=== PATIENT | female | born 1975 | race Caucasian/White ===

== ENCOUNTER → 2016-09-26 | Outpatient (CLI) | payer OTHER ==
--- NOTE | 2016-09-26 12:56 | US ---
EXAMINATION TYPE: US axilla extremity RT DATE OF EXAM: 09/26/2016 COMPARISON: NONE CLINICAL HISTORY: L03.121 Acute lymphangitis of right axilla. pt states rt axilla fullness, not reall y tender, family history of Hodgkins and breast cancer Scanned over the pt's area of concern and scanned the contralateral side for comparison--no abnormali ty seen by ultrasound. No worrisome solid or cystic mass or abnormal fluid collection is seen on images saved with compariso n views of left axilla also performed. IMPRESSION: As above
== END | disposition home or self-care (01) ==
LOC: RADUSWWP 11:50
PROVIDERS: ATTEND Family Medicine
DX: L03.121 Acute lymphangitis of right axilla (principal)

== ENCOUNTER → 2017-09-12 | Outpatient (CLI) | payer OTHER ==
--- NOTE | 2017-09-16 09:57 | MM ---
Reason for exam: screening (asymptomatic). Last mammogram was performed 6 years and 7 months ago. History: Patient is postmenopausal. Family history of premenopausal breast cancer in mother at age 47. Took hormonal contraceptives for 9 years beginning at age 14. Took estrogen for 1 year beginning at age 23. Took progesterone for 1 year beginning at age 23. Physical Findings: A clinical breast exam by your physician is recommended on an annual basis and results should be correlated with mammographic findings. MG Screening Mammo w CAD Bilateral CC and MLO view(s) were taken. Prior study comparison: February 12, 2011, CAD bilateral diagnostic mammogram. March 31, 2008, left breast digital mammogram. The breast tissue is heterogeneously dense. This may lower the sensitivity of mammography. New left axillary nodes. There is a new group of calcifications in the upper outer quadrant of the left breast at a posterior depth. Right axillary BB marker appears to correlate to a stable node back to 2010. Additional right retroareolar marker is placed. ASSESSMENT: Incomplete: need additional imaging evaluation, BI-RAD 0 RECOMMENDATION: Special view mammogram of the left breast. (magnification views) Ultrasound of both breasts. (bilateral axillary) [facility] will attempt to contact patient to return for supplemental views and ultrasound.
== END | disposition home or self-care (01) ==
LOC: RADMAMWWP 09:04
PROVIDERS: ATTEND Family Medicine
DX: Z12.31 Encounter for screening mammogram for malignant neoplasm of breast (principal)
CPT/HCPCS: 77067

== ENCOUNTER → 2017-09-25 | Outpatient (CLI) | payer OTHER ==
--- NOTE | 2017-09-26 11:14 | MM ---
Reason for exam: additional evaluation requested from abnormal screening. Last mammogram was performed less than 1 month ago. History: Patient is postmenopausal. Family history of premenopausal breast cancer in mother at age 47. Took hormonal contraceptives for 9 years beginning at age 14. Took estrogen for 1 year beginning at age 23. Took progesterone for 1 year beginning at age 23. Physical Findings: Nurse did not find any significant physical abnormalities on exam. MG Work Up Mamm w CAD LT CC with magnification, ML with magnification, and ML view(s) were taken of the left breast. Prior study comparison: September 12, 2017, bilateral MG screening mammo w CAD. February 12, 2011, CAD bilateral diagnostic mammogram. The breast tissue is heterogeneously dense. This may lower the sensitivity of mammography. There is a 3mm group of new calcifications in the upper outer quadrant of the left breast at posterior depth. These results were verbally communicated with the patient and result sheet given to the patient on 09/25/17. ASSESSMENT: Suspicious, BI-RAD 4 RECOMMENDATION: Stereotactic core biopsy of the left breast. (upper outer quadrant) Manage patient on a clinical basis for palpable bilateral axillary adenopathy. Called Dr. Winston with mammographic findings and has scheduled an appointment for the patient for 10/17/17 at 10:[address] Marie. Biopsy scheduled for 10/03/17 at 8:00. PRELIMINARY REPORT CALLED AND FAXED TO DR. MARIE ON 09/26/17.
--- NOTE | 2017-09-26 11:16 | USB ---
Reason for exam: additional evaluation requested from abnormal screening. History: Patient is postmenopausal. Family history of premenopausal breast cancer in mother at age 47. Took hormonal contraceptives for 9 years beginning at age 14. Took estrogen for 1 year beginning at age 23. Took progesterone for 1 year beginning at age 23. US Breast Workup Limited YAZAN Right limited breast ultrasound including focal area of concern, retroareolar and axilla demonstrates no cystic or solid lesion seen. Left limited breast ultrasound including focal area of concern, retroareolar and axilla demonstrates no cystic or solid lesion seen. No abnormal lymph nodes identified sonographically. These results were verbally communicated with the patient and result sheet given to the patient on 09/25/17. ASSESSMENT: Negative, BI-RAD 1 RECOMMENDATION: Stereotactic core biopsy of the left breast. Manage patient on a clinical basis. Called Dr. Winston with mammographic findings and has scheduled an appointment for the patient for 10/17/17 at 10:[address] Marie. Biopsy scheduled for 10/03/17 at 8:00. PRELIMINARY REPORT CALLED AND FAXED TO DR. MARIE ON 09/26/17.
== END | disposition home or self-care (01) ==
LOC: RADMAMWWP 08:40
PROVIDERS: ATTEND Family Medicine
DX: R92.8 Other abnormal and inconclusive findings on diagnostic imaging of breast (principal)
CPT/HCPCS: 77065

== ENCOUNTER → 2017-10-03 | Day surgery (SDC) | payer OTHER ==
[2017-10-03 13:34] VITALS: RESP 16; TEMP 98.3; BMI 20.3
[2017-10-03 16:31] VITALS: BP 120/88; PULSE 90
--- NOTE | 2017-10-04 11:24 | MM ---
EXAMINATION TYPE: MG stereo VAD BX LT DATE OF EXAM: 10/03/2017 COMPARISON: 09/25/2017 CLINICAL HISTORY: Left upper outer quadrant posterior depth calcifications for which stereotactic bio psy was recommended. TECHNIQUE: Stereotactic guided core biopsy of left breast. FINDINGS: The procedure of stereotactic guided core biopsy was explained to the patient. Benefits, a lternatives, and risks were discussed. An informed consent was then obtained. The shortness pathway for biopsy was chosen. Shortness pathway was lateral to medial approach. 10 cc of lidocaine without epinephrine was utilized to anesthetize the subcutaneous soft tissues and skin surface. 10 cc of lidocaine with epinephrine was utilized to anesthetize the subcutaneous tissues at the site of biopsy prior to obtaining samples. A vacuum assisted biopsy gun was used to obtain 11 co re samples. The patient tolerated the procedure well developing a small postprocedural hematoma controlled by pre ssure and decreasing in size and physical exam before the patient was released. The patient was kept in the radiology department for short stay after the procedure and then discharged home in stable co ndition. Few targeted calcifications are identified in specimen mammogram. Post biopsy mammogram lluvia ws the clip to appear slightly inferior and slightly medial to the biopsied calcifications. IMPRESSION: SUCCESSFUL STEREOTACTIC GUIDED CORE BIOPSY OF CALCIFICATIONS IN THE LEFT BREAST, FULL PATHOLOGY RESUL TS TO FOLLOW. Only few calcifications were seen in the biopsy specimen, additionally the biopsy joyce er appears slightly medial and slightly inferior to the targeted calcifications. Magnification views were not performed the same day due to a small postprocedural hematoma controlled by pressure. Theref ore if there is concern for discordance on radiologic/pathologic correlation the patient can be broug ht back for magnification views.
== END ==
LOC: RADMAMWWP 12:50
PROVIDERS: ATTEND Surgery
DX: D24.2 Benign neoplasm of left breast (principal); N60.12 Diffuse cystic mastopathy of left breast; N60.22 Fibroadenosis of left breast; Z80.3 Family history of malignant neoplasm of breast; Z88.8 Allergy status to other drugs, medicaments and biological substances
CPT/HCPCS: 19081; A4648; J2001; 88305

== ENCOUNTER → 2018-01-20 | Outpatient (CLI) | payer OTHER ==
--- NOTE | 2018-01-20 09:10 | MM ---
Reason for exam: follow-up at short interval from prior study. Last mammogram was performed 4 months ago. History: Family history of premenopausal breast cancer in mother at age 47. Benign MG stereo VAD BX LT of the left breast, October 03, 2017. Took hormonal contraceptives for 9 years beginning at age 14. Took estrogen for 1 year beginning at age 23. Took progesterone for 1 year beginning at age 23. Physical Findings: Nurse did not find any significant physical abnormalities on exam. MG Diagnostic Mammo LT w CAD CC, MLO, ML, CC with magnification, and ML with magnification view(s) were taken of the left breast. Prior study comparison: September 25, 2017, left breast MG work up mamm w CAD LT. September 12, 2017, bilateral MG screening mammo w CAD. The breast tissue is heterogeneously dense. This may lower the sensitivity of mammography. There are residual calcifications just anterior to the biopsy marker. No increase in number. New similar morphology calcifications are seen just posterior and inferior in the upper outer quadrant on the left. 6 month follow up recommended. These results were verbally communicated with the patient and result sheet given to the patient on 01/20/18. ASSESSMENT: Probably benign, BI-RAD 3 RECOMMENDATION: Follow-up diagnostic mammogram of both breasts in 6 months. (with left magnification views)
== END | disposition home or self-care (01) ==
LOC: RADMAMWWP 07:03
PROVIDERS: ATTEND Surgery
DX: R92.8 Other abnormal and inconclusive findings on diagnostic imaging of breast (principal)
CPT/HCPCS: 77065

== ENCOUNTER → 2018-07-10 | Outpatient (CLI) | payer OTHER ==
--- NOTE | 2018-07-10 08:10 | MM ---
Reason for exam: additional evaluation requested from prior study. Last mammogram was performed 6 months ago. History: Family history of premenopausal breast cancer in mother at age 47. Benign MG stereo VAD BX LT of the left breast, October 03, 2017. Took hormonal contraceptives for 9 years beginning at age 14. Took estrogen for 1 year beginning at age 23. Took progesterone for 1 year beginning at age 23. Physical Findings: Nurse did not find any significant physical abnormalities on exam. MG Diagnostic Mammo w CAD YAZAN Bilateral CC and MLO view(s) were taken. Prior study comparison: January 20, 2018, left breast MG diagnostic mammo LT w CAD. September 25, 2017, left breast MG work up mamm w CAD LT. The breast tissue is heterogeneously dense. This may lower the sensitivity of mammography. Previous mammotome biopsy in the left breast. There is no discrete abnormality. No significant new findings when compared with previous films. These results were verbally communicated with the patient and result sheet given to the patient on 07/10/18. ASSESSMENT: Benign, BI-RAD 2 RECOMMENDATION: Routine screening mammogram of both breasts in 1 year.
== END | disposition home or self-care (01) ==
LOC: RADMAMWWP 06:52
PROVIDERS: ATTEND Surgery
DX: R92.8 Other abnormal and inconclusive findings on diagnostic imaging of breast (principal)
CPT/HCPCS: 77066

== ENCOUNTER → 2019-03-19 | Outpatient (CLI) | payer OTHER ==
--- NOTE | 2019-03-19 09:47 | XR ---
EXAMINATION TYPE: XR foot complete LT DATE OF EXAM: 03/19/2019 COMPARISON: NONE HISTORY: Pain TECHNIQUE: Three views are submitted. FINDINGS: The osseous structures are intact. There is no acute fracture or dislocation. Joint spaces are p reserved. IMPRESSION: 1. No acute fracture or dislocation. If symptoms persist, follow-up exam in 7 to 10 days could be ob tained.
== END | disposition home or self-care (01) ==
LOC: RADXRMAIN 08:56
PROVIDERS: ATTEND Nurse Practitioner Family
DX: M79.672 Pain in left foot (principal)

== ENCOUNTER 2019-05-11 06:47 | Observation (INO) | payer OTHER ==
[2019-05-11] MEDS ORDERED: MORPHINE SULFATE 4 MG/ML SYRINGE IV STA ×2 (07:13→08:39)
[2019-05-11] MEDS ORDERED: SODIUM CHLORIDE 0.9% 1,000 ML IV STA (07:13)
[2019-05-11] MEDS ORDERED: FAMOTIDINE 20 MG/2 ML VIAL IV STA (07:14)
--- NOTE | 2019-05-11 07:16 | ED ---
General Adult HPI - General Chief complaint: Abdominal Pain Stated complaint: Abd pain Time Seen by Provider: 05/11/19 07:03 Source: patient, EMS, RN notes reviewed Mode of arrival: EMS Limitations: no limitations - History of Present Illness Initial comments: Patient is a pleasant 43-year-old female presenting to the emergency Department with complaints of abdominal discomfort. Onset of symptoms was an hour ago. Discomfort was severe however now is only moderate. Discomfort is epigastric region, no radiation. No nausea vomiting constipation or diarrhea. No fevers. No history of similar symptoms previously. Patient states she does not have gallbladder still. - Related Data Home Medications Medication Instructions Recorded Confirmed Amitriptyline HCl [Elavil] 75 tab PO HS 09/25/17 05/11/19 Topiramate [Topamax] 100 mg PO HS 09/25/17 05/11/19 Meloxicam [Mobic] 7.5 mg PO DAILY PRN 05/11/19 05/11/19 Allergies Allergy/AdvReac Type Severity Reaction Status Date / Time bupropion [From Wellbutrin] Allergy Rash/Hives Verified 10/03/17 13:25 ondansetron [From Zofran] Allergy Rash/Hives Verified 10/03/17 13:25 Review of Systems ROS Statement: Those systems with pertinent positive or pertinent negative responses have been documented in the HPI. ROS Other: All systems not noted in ROS Statement are negative. Constitutional: Denies: fever Eyes: Denies: eye pain ENT: Denies: ear pain Respiratory: Denies: cough Cardiovascular: Denies: chest pain Endocrine: Denies: fatigue Gastrointestinal: Reports: abdominal pain. Denies: nausea, vomiting, diarrhea, constipation Genitourinary: Denies: dysuria Musculoskeletal: Denies: back pain Skin: Denies: rash Neurological: Denies: headache Past Medical History Past Medical History: Neurologic Disorder Additional Past Medical History / Comment(s): migraines,IBS History of Any Multi-Drug Resistant Organisms: None Reported Past Surgical History: Appendectomy, Cholecystectomy, Orthopedic Surgery Additional Past Surgical History / Comment(s): neck surgery 2010,right wrist left wrist 2009, larygocele Past Anesthesia/Blood Transfusion Reactions: No Reported Reaction Additional Past Anesthesia/Blood Transfusion Reaction / Comment(s): sometimes takes long "to go under" Smoking Status: Current every day smoker Past Alcohol Use History: Occasional Past Drug Use History: None Reported - Past Family History Mother Family Medical History: Cancer Additional Family Medical History / Comment(s): breast cancer Son(s) Family Medical History: Cancer Additional Family Medical History / Comment(s): hodgkins lymphoma General Exam Limitations: no limitations General appearance: alert, in no apparent distress Head exam: Present: normocephalic Eye exam: Present: normal appearance, PERRL ENT exam: Present: normal oropharynx Neck exam: Present: normal inspection Respiratory exam: Present: normal lung sounds bilaterally Cardiovascular Exam: Present: regular rate, normal rhythm Expanded Peripheral pulses: 2+: Posterior Tibialis (R), Posterior Tibialis (L), Dorsalis Pedis (R), Dorsalis Pedis (L) GI/Abdominal exam: Present: soft, tenderness (Moderate tenderness to palpation in the epigastric region), normal bowel sounds. Absent: distended, guarding, rebound, rigid, pulsatile mass Extremities exam: Present: normal inspection Neurological exam: Present: alert Psychiatric exam: Present: normal affect, normal mood Skin exam: Present: normal color Course Vital Signs 05/11/19 05/11/19 06:48 09:39 Temperature 97.6 F Pulse Rate 80 68 Respiratory 18 20 Rate Blood Pressure 118/81 132/97 O2 Sat by Pulse 99 97 Oximetry EKG Findings - EKG Comments: EKG Findings:: Normal sinus rhythm 68. VT 150. QRS 88. QT 424. QTC 450. Normal axis. Normal QRS. No acute ST change. Medical Decision Making - Medical Decision Making Patient reevaluated and still having discomfort. Abdomen with moderate epigastric tenderness. Case was discussed with Dr. Driscoll who is familiar with this patient and will admit for observation. He does request consult with Dr. Edwards. - Lab Data Result diagrams: 05/11/19 07:08 05/11/19 07:08 Lab Results 05/11/19 05/11/19 05/11/19 Range/Units 07:08 07:08 07:08 WBC 10.2 (3.8-10.6) k/uL RBC 4.77 (3.80-5.40) m/uL Hgb 13.7 (11.4-16.0) gm/dL Hct 42.1 (34.0-46.0) % MCV 88.3 (80.0-100.0) fL MCH 28.8 (25.0-35.0) pg MCHC 32.6 (31.0-37.0) g/dL RDW 12.7 (11.5-15.5) % Plt Count 277 (150-450) k/uL Neutrophils % 58 % Lymphocytes % 31 % Monocytes % 4 % Eosinophils % 5 % Basophils % 1 % Neutrophils # 5.9 (1.3-7.7) k/uL Lymphocytes # 3.2 (1.0-4.8) k/uL Monocytes # 0.4 (0-1.0) k/uL Eosinophils # 0.5 (0-0.7) k/uL Basophils # 0.1 (0-0.2) k/uL PT (9.0-12.0) sec INR (<1.2) APTT (22.0-30.0) sec Sodium 141 (137-145) mmol/L Potassium 3.7 (3.5-5.1) mmol/L Chloride 113 H (98-107) mmol/L Carbon Dioxide 19 L (22-30) mmol/L Anion Gap 9 mmol/L BUN 13 (7-17) mg/dL Creatinine 0.84 (0.52-1.04) mg/dL Est GFR (CKD-EPI)AfAm >90 (>60 ml/min/1.73 sqM) Est GFR (CKD-EPI)NonAf 84 (>60 ml/min/1.73 sqM) Glucose 99 (74-99) mg/dL Calcium 9.0 (8.4-10.2) mg/dL Total Bilirubin 0.3 (0.2-1.3) mg/dL AST 24 (14-36) U/L ALT 13 (4-34) U/L Alkaline Phosphatase 91 (38-126) U/L Total Protein 6.9 (6.3-8.2) g/dL Albumin 3.8 (3.5-5.0) g/dL Amylase 60 (30-110) U/L Lipase 67 (23-300) U/L Urine Color Yellow Urine Appearance Clear (Clear) Urine pH 6.5 (5.0-8.0) Ur Specific [place] 1.016 (1.001-1.035) Urine Protein Negative (Negative) Urine Glucose (UA) Negative (Negative) Urine Ketones Negative (Negative) Urine Blood Negative (Negative) Urine Nitrite Negative (Negative) Urine Bilirubin Negative (Negative) Urine Urobilinogen <2.0 (<2.0) mg/dL Ur Leukocyte Esterase Negative (Negative) 05/11/19 Range/Units 07:08 WBC (3.8-10.6) k/uL RBC (3.80-5.40) m/uL Hgb (11.4-16.0) gm/dL Hct (34.0-46.0) % MCV (80.0-100.0) fL MCH (25.0-35.0) pg MCHC (31.0-37.0) g/dL RDW (11.5-15.5) % Plt Count (150-450) k/uL Neutrophils % % Lymphocytes % % Monocytes % % Eosinophils % % Basophils % % Neutrophils # (1.3-7.7) k/uL Lymphocytes # (1.0-4.8) k/uL Monocytes # (0-1.0) k/uL Eosinophils # (0-0.7) k/uL Basophils # (0-0.2) k/uL PT 9.8 (9.0-12.0) sec INR 0.9 (<1.2) APTT 26.0 (22.0-30.0) sec Sodium (137-145) mmol/L Potassium (3.5-5.1) mmol/L Chloride (98-107) mmol/L Carbon Dioxide (22-30) mmol/L Anion Gap mmol/L BUN (7-17) mg/dL Creatinine (0.52-1.04) mg/dL Est GFR (CKD-EPI)AfAm (>60 ml/min/1.73 sqM) Est GFR (CKD-EPI)NonAf (>60 ml/min/1.73 sqM) Glucose (74-99) mg/dL Calcium (8.4-10.2) mg/dL Total Bilirubin (0.2-1.3) mg/dL AST (14-36) U/L ALT (4-34) U/L Alkaline Phosphatase (38-126) U/L Total Protein (6.3-8.2) g/dL Albumin (3.5-5.0) g/dL Amylase (30-110) U/L Lipase (23-300) U/L Urine Color Urine Appearance (Clear) Urine pH (5.0-8.0) Ur Specific [place] (1.001-1.035) Urine Protein (Negative) Urine Glucose (UA) (Negative) Urine Ketones (Negative) Urine Blood (Negative) Urine Nitrite (Negative) Urine Bilirubin (Negative) Urine Urobilinogen (<2.0) mg/dL Ur Leukocyte Esterase (Negative) - Radiology Data Radiology results: report reviewed (Computed tomography scan of the abdomen pelvis shows possible enteritis) Disposition Clinical Impression: Abdominal pain Disposition: ADMITTED IP TO THIS HOSP Is patient prescribed a controlled substance at d/c from ED?: No Referrals: Dipak Winston Jr, DO [Primary Care Provider] - 1-2 days Decision Time: 09:52
[2019-05-11 08:11] LABS: Basophils # (A) 0.1 k/uL (0-0.2); Basophils % (A) 1 %; Eosinophils # (A) 0.5 k/uL (0-0.7); Eosinophils % (A) 5 %; HCT 42.1 % (34.0-46.0); HGB 13.7 gm/dL (11.4-16.0); Lymphocytes # (A) 3.2 k/uL (1.0-4.8); Lymphocytes % (A) 31 %; MCH 28.8 pg (25.0-35.0); MCHC 32.6 g/dL (31.0-37.0); MCV 88.3 fL (80.0-100.0); Mean Platelet Volume 8.1; Monocytes # (A) 0.4 k/uL (0-1.0); Monocytes % (A) 4 %; Neutrophils # (A) 5.9 k/uL (1.3-7.7); Neutrophils % (A) 58 %; Platelet Count 277 k/uL (150-450); RBC 4.77 m/uL (3.80-5.40); RDW 12.7 % (11.5-15.5); WBC 10.2 k/uL (3.8-10.6)
[2019-05-11 08:17] LABS: Appearance,Urine Clear (Clear); Bilirubin,Urine Negative (Negative); Blood,Urine Negative (Negative); Color,Urine Yellow; Glucose,Urine (UA) Negative (Negative); Ketones,Urine Negative (Negative); Leukocyte Esterase,Urine Negative (Negative); Nitrite,Urine Negative (Negative); PH, Urine 6.5 (5.0-8.0); Protein,Urine Negative (Negative); Specific Gravity,Urine 1.016 (1.001-1.035); Urobilinogen,Urine <2.0 mg/dL (<2.0)
[2019-05-11 08:21] LABS: ALT 13 U/L (4-34); AST 24 U/L (14-36); African American GFR (CKD) >90 (>60 ml/min/1.73 sqM); Albumin 3.8 g/dL (3.5-5.0); Alkaline Phosphatase 91 U/L (38-126); Amylase 60 U/L (30-110); Anion Gap 9 mmol/L; Blood Urea Nitrogen 13 mg/dL (7-17); Carbon Dioxide 19 mmol/L (22-30); Chloride 113 mmol/L (98-107); Glucose 99 mg/dL (74-99); Non-African American GFR(CKD) 84 (>60 ml/min/1.73 sqM); Potassium 3.7 mmol/L (3.5-5.1); Sodium 141 mmol/L (137-145); Total Bilirubin 0.3 mg/dL (0.2-1.3); Total Protein 6.9 g/dL (6.3-8.2)
[2019-05-11 08:22] LABS: INR 0.9 (<1.2); Prothrombin Time 9.8 sec (9.0-12.0)
[2019-05-11] MEDS ORDERED: METOCLOPRAMIDE 5 MG/ML 2 ML VIAL IVP STA (08:39)
--- NOTE | 2019-05-11 08:55 | CT ---
EXAMINATION TYPE: CT abdomen pelvis w con DATE OF EXAM: 05/11/2019 HISTORY: epigastric pain CT DLP: 602.9mGycm Automated Exposure Control for Dose Reduction was Utilized. CONTRAST: CT scan of the abdomen and pelvis is performed without oral but with IV Contrast, patient injected wi th 100 mL of Isovue 300. COMPARISON: CT abdomen and pelvis December 29, 2010 FINDINGS: LUNG BASES: Dependent atelectasis bilateral lower lobes. LIVER/GB: Cholecystectomy clips are redemonstrated.. PANCREAS: No significant abnormality is seen. SPLEEN: No significant abnormality is seen. ADRENALS: No significant abnormality is seen. KIDNEYS: Simple appearing 2.0 cm thin-walled cyst left kidney centrally upper to midpole level seen b est on axial image 19 series 301. Symmetric cortical medullary uptake and excretion without hydroneph rosis bilaterally. BOWEL: Evaluation of all suboptimal secondary to lack of enteric contrast. Stomach is poorly distende d and thus suboptimally evaluated. No suspicious small or large bowel dilatation. There is presence o f fluid within the right and transverse colon with some mucosal enhancement involving the transverse colon. There is some additional mucosal enhancement involving the terminal ileum with mild wall thick ening. Mild wall thickening in the sigmoid rectal colon is present. UTERUS/ADNEXA: Uterus surgically absent or markedly atrophic in appearance. Occasional scattered pelv ic phleboliths. LYMPH NODES: No greater than 1cm abdominal or pelvic lymph nodes are appreciated. OSSEOUS STRUCTURES: No significant abnormality is seen. OTHER: No significant additional abnormality is seen. IMPRESSION: Possible underlying mild enterocolitis and/or diarrhea, correlate clinically. No bowel ob struction is present.
[2019-05-11] MEDS ORDERED: DICYCLOMINE 10 MG/ML 2 ML AMP IM STA (09:30)
[2019-05-11] MEDS ORDERED: HYDROmorphone 1 MG/ML 1 ML SYRINGE IVP PRN (09:52)
[2019-05-11] MEDS ORDERED: HYDROmorphone 0.5 MG/0.5 ML SYRINGE IVP PRN (09:52)
[2019-05-11] MEDS ORDERED: NALOXONE 0.4 MG/ML 1 ML VIAL IV PRN (09:52)
[2019-05-11] MEDS ORDERED: ACETAMINOPHEN IV (For NPO) 1,000 MG in EMPTY BAG 1 BAG IVPB PRN (14:51)
[2019-05-11] MEDS ORDERED: MELOXICAM 7.5 MG TAB PO PRN (15:06)
[2019-05-11] MEDS ORDERED: ACETAMINOPHEN IV (For NPO) 1,000 MG in EMPTY BAG 1 BAG IVPB SCH (16:00)
[2019-05-11] MEDS: PANTOPRAZOLE 40 MG/10 ML VIAL IV SCH (16:30)
--- NOTE | 2019-05-11 16:48 | P.GSCN ---
History of Present Illness Consult date: 05/11/19 Reason for Consult: Abdominal pain History of present illness: Is a 43-year-old female who presents emergency room with severe epigastric abdom inal pain this morning. She states her pain was a 10 out of 10. She now states her pain is approximately 2-3 out of 10. Her CAT scan shows possible enterocolitis. The patient states she's had some diarrhea over the last week. She states this is not unusual for her because of her IBS. Past Medical History Past Medical History: GERD/Reflux, Pneumonia Additional Past Medical History / Comment(s): Hypotension, migraines, IBS, bron chitis, sinus problems/seasonal allergies. History of Any Multi-Drug Resistant Organisms: None Reported Past Surgical History: Appendectomy, Cholecystectomy, Hysterectomy, Orthopedic Surgery, Tonsillectomy Additional Past Surgical History / Comment(s): Laryngoscopy to remove tumor from neck, Cervical surgery, L/R wrist ganglion cyst removals, benign skin lesions removed, laparoscopic surgeries for ovarian cyst removals, diagnostic lap with R oophorectomy. Past Anesthesia/Blood Transfusion Reactions: No Reported Reaction Additional Past Anesthesia/Blood Transfusion Reaction / Comm: sometimes takes long "to go under" Smoking Status: Current every day smoker - Past Family History Mother Family Medical History: Cancer Additional Family Medical History / Comment(s): Breast cancer. Mother is living. Son(s) Family Medical History: Cancer Additional Family Medical History / Comment(s): hodgkins lymphoma Father Family Medical History: No Reported History Additional Family Medical History / Comment(s): Father is healthy Medications and Allergies Home Medications Medication Instructions Recorded Confirmed Type Amitriptyline HCl [Elavil] 75 tab PO HS 09/25/17 05/11/19 History Topiramate [Topamax] 100 mg PO HS 09/25/17 05/11/19 History Meloxicam [Mobic] 7.5 mg PO DAILY PRN 05/11/19 05/11/19 History Allergies Allergy/AdvReac Type Severity Reaction Status Date / Time bupropion [From Wellbutrin] Allergy Rash/Hives Verified 10/03/17 13:25 ondansetron [From Zofran] Allergy Rash/Hives Verified 10/03/17 13:25 Surgical - Exam Vital Signs Temp Pulse Resp BP Pulse Ox 97.6 F 80 18 118/81 99 05/11/19 06:48 05/11/19 06:48 05/11/19 06:48 05/11/19 06:48 05/11/19 06:48 - General well developed, well nourished, no distress - Eyes PERRL - ENT normal pinna - Neck no masses - Respiratory normal expansion - Cardiovascular Rhythm: regular - Abdomen Mild gastritis. There is no rebound or guarding. Abdomen: soft Results - Labs 05/11/19 07:08 05/11/19 07:08 Abnormal Lab Results - Last 24 Hours (Table) 05/11/19 Range/Units 07:08 Chloride 113 H (98-107) mmol/L Carbon Dioxide 19 L (22-30) mmol/L Diabetes panel 05/11/19 Range/Units 07:08 Sodium 141 (137-145) mmol/L Potassium 3.7 (3.5-5.1) mmol/L Chloride 113 H (98-107) mmol/L Carbon Dioxide 19 L (22-30) mmol/L BUN 13 (7-17) mg/dL Creatinine 0.84 (0.52-1.04) mg/dL Glucose 99 (74-99) mg/dL Calcium 9.0 (8.4-10.2) mg/dL AST 24 (14-36) U/L ALT 13 (4-34) U/L Alkaline Phosphatase 91 (38-126) U/L Total Protein 6.9 (6.3-8.2) g/dL Albumin 3.8 (3.5-5.0) g/dL Calcium panel 05/11/19 Range/Units 07:08 Calcium 9.0 (8.4-10.2) mg/dL Albumin 3.8 (3.5-5.0) g/dL Pituitary panel 05/11/19 Range/Units 07:08 Sodium 141 (137-145) mmol/L Potassium 3.7 (3.5-5.1) mmol/L Chloride 113 H (98-107) mmol/L Carbon Dioxide 19 L (22-30) mmol/L BUN 13 (7-17) mg/dL Creatinine 0.84 (0.52-1.04) mg/dL Glucose 99 (74-99) mg/dL Calcium 9.0 (8.4-10.2) mg/dL Adrenal panel 01/27/20 Range/Units 07:08 Sodium 141 (137-145) mmol/L Potassium 3.7 (3.5-5.1) mmol/L Chloride 113 H (98-107) mmol/L Carbon Dioxide 19 L (22-30) mmol/L BUN 13 (7-17) mg/dL Creatinine 0.84 (0.52-1.04) mg/dL Glucose 99 (74-99) mg/dL Calcium 9.0 (8.4-10.2) mg/dL Total Bilirubin 0.3 (0.2-1.3) mg/dL AST 24 (14-36) U/L ALT 13 (4-34) U/L Alkaline Phosphatase 91 (38-126) U/L Total Protein 6.9 (6.3-8.2) g/dL Albumin 3.8 (3.5-5.0) g/dL - Imaging CT scan - abdomen: report reviewed (Enterocolitis) Assessment and Plan Assessment: Abdominal pain, or colitis. Patient observed. If her pain persists she will undergo upper and lower endoscopy.
[2019-05-11] MEDS: SODIUM CHLORIDE 0.9% 1,000 ML IV SCH ×2 (17:08→19:41)
[2019-05-11] MEDS: NICOTINE 14MG/24HR PATCH TRANSDERM SCH (17:44)
[2019-05-11] MEDS: DICYCLOMINE 20 MG TAB PO SCH ×2 (17:44→21:36)
[2019-05-11] MEDS ORDERED: TOPIRAMATE 100 MG TAB PO SCH (21:00)
[2019-05-11] MEDS ORDERED: AMITRIPTYLINE HCL 25 MG TAB PO SCH (21:00)
[2019-05-11 23:48] VITALS: RESP 16
[2019-05-12] MEDS: SODIUM CHLORIDE 0.9% 1,000 ML IV SCH (05:43)
[2019-05-12 06:25] VITALS: BP 106/64; PULSE 74; TEMP 97.8
[2019-05-12] MEDS: PANTOPRAZOLE 40 MG/10 ML VIAL IV SCH (07:49)
[2019-05-12] MEDS: DICYCLOMINE 20 MG TAB PO SCH (07:49)
[2019-05-12] MEDS: NICOTINE 14MG/24HR PATCH TRANSDERM SCH (07:49)
[2019-05-12 09:24] LABS: Basophils % (A) 1 %; Eosinophils # (A) 0.2 k/uL (0-0.7); Eosinophils % (A) 5 %; HCT 41.7 % (34.0-46.0); HGB 13.1 gm/dL (11.4-16.0); Lymphocytes % (A) 39 %; MCH 29.4 pg (25.0-35.0); MCHC 31.5 g/dL (31.0-37.0); Mean Platelet Volume 7.6; Monocytes # (A) 0.2 k/uL (0-1.0); Monocytes % (A) 4 %; Neutrophils # (A) 2.5 k/uL (1.3-7.7); Neutrophils % (A) 49 %; Platelet Count 217 k/uL (150-450); RBC 4.47 m/uL (3.80-5.40)
[2019-05-12 09:25] LABS: MCV 93.3 fL (80.0-100.0)
[2019-05-12 09:40] LABS: ALT 14 U/L (4-34); AST 24 U/L (14-36); African American GFR (CKD) >90 (>60 ml/min/1.73 sqM); Albumin 3.2 g/dL (3.5-5.0); Alkaline Phosphatase 65 U/L (38-126); Anion Gap 8 mmol/L; Blood Urea Nitrogen 8 mg/dL (7-17); Calcium 8.6 mg/dL (8.4-10.2); Carbon Dioxide 17 mmol/L (22-30); Chloride 116 mmol/L (98-107); Glucose 124 mg/dL (74-99); Non-African American GFR(CKD) 89 (>60 ml/min/1.73 sqM); Potassium 3.7 mmol/L (3.5-5.1); Sodium 141 mmol/L (137-145); Total Bilirubin 0.4 mg/dL (0.2-1.3)
--- NOTE | 2019-05-12 11:27 | P.HPIM ---
History of Present Illness H&P Date: 05/12/19 Chief Complaint: Abdominal pain This is a 43-year-old female with history of gastroesophageal reflux disease, IBS, appendectomy, cholecystectomy, ongoing nicotine dependence and multiple other medical issues presented to the ER with mid epigastric tenderness 1 hour. Denies nausea, vomiting. Reported some diarrhea over the last week which is her baseline secondary to IBS. Denies fevers or chills. Afebrile, normal WBC abdominal/pelvis CT reported possible underlying mild enterocolitis and or diarrhea, no bowel obstruction. Vital signs stable, labs unremarkable. EKG reporting normal sinus rhythm. Troponins negative 1. Denies chest pain, palpitations or shortness of breath. Denies lightheadedness dizziness or focal deficits.Surgical consult in place. Review of Systems Constitutional: Denied any fatigue denied any fever. Cardio vascular: denied any chest pain, palpitations Gastrointestinal denied any nausea vomiting, reports mid epigastric tenderness, bilateral lower quadrant cramping Pulmonary: Denied any shortness of breath cough Neurologic denied any new focal deficits ROS Statement: Those systems with pertinent positive or pertinent negative responses have been documented in the HPI. ROS Other: All systems not noted in ROS Statement are negative. Past Medical History Past Medical History: GERD/Reflux, Pneumonia Additional Past Medical History / Comment(s): Hypotension, migraines, IBS, bronchitis, sinus problems/seasonal allergies. History of Any Multi-Drug Resistant Organisms: None Reported Past Surgical History: Appendectomy, Cholecystectomy, Hysterectomy, Orthopedic Surgery, Tonsillectomy Additional Past Surgical History / Comment(s): Laryngoscopy to remove tumor from neck, Cervical surgery, L/R wrist ganglion cyst removals, benign skin lesions removed, laparoscopic surgeries for ovarian cyst removals, diagnostic lap with R oophorectomy. Past Anesthesia/Blood Transfusion Reactions: No Reported Reaction Additional Past Anesthesia/Blood Transfusion Reaction / Comment(s): sometimes takes long "to go under" Smoking Status: Current every day smoker - Past Family History Mother Family Medical History: Cancer Additional Family Medical History / Comment(s): Breast cancer. Mother is popeye rodriguez. Son(s) Family Medical History: Cancer Additional Family Medical History / Comment(s): hodgkins lymphoma Father Family Medical History: No Reported History Additional Family Medical History / Comment(s): Father is healthy Medications and Allergies Home Medications Medication Instructions Recorded Confirmed Type Amitriptyline HCl [Elavil] 75 tab PO HS 09/25/17 05/11/19 History Topiramate [Topamax] 100 mg PO HS 09/25/17 05/11/19 History Meloxicam [Mobic] 7.5 mg PO DAILY PRN 05/11/19 05/11/19 History Dicyclomine [Bentyl] 20 mg PO TID #21 tab 05/12/19 Rx Nicotine 14Mg/24Hr Patch [Habitrol] 1 patch TRANSDERM DAILY #30 patch 05/12/19 Rx Pantoprazole Sodium [Protonix] 40 mg PO DAILY #30 tablet. 05/12/19 Rx Allergies Allergy/AdvReac Type Severity Reaction Status Date / Time bupropion [From Wellbutrin] Allergy Rash/Hives Verified 10/03/17 13:25 ondansetron [From Zofran] Allergy Rash/Hives Verified 10/03/17 13:25 Physical Exam Vitals: Vital Signs Temp Pulse Resp BP Pulse Ox 05/11/19 13:03 87 18 103/81 98 05/11/19 11:11 71 16 109/85 100 05/11/19 09:39 68 20 132/97 97 05/11/19 06:48 97.6 F 80 18 118/81 99 Intake and Output 05/10/19 05/11/19 05/11/19 22:59 06:59 14:59 Other: Weight 62.142 kg 62.142 kg PHYSICAL EXAM: VITAL SIGNS: [As above] GENERAL: Sitting up in stretcher, no acute distress HEENT: Conjunctivae normal. eyes normal. NECK: No JVD. No thyroid enlargement. No LNs CARDIOVASCULAR: S1, S2 regular.. No murmur RESPIRATION: Breath sounds diminished in the bases. No rhonchi or crackles. No bronchial breathing. ABDOMEN: Soft, nondistended, mild mid epigastric tenderness ,No guarding. no masses palpable. No ascites, No hepatosplenomegaly.Bowel sounds heard. LEGS: No edema. no swelling PSYCHIATRY: Alert and oriented X3, mood and affect normal. NERVOUS SYSTEM: Cranial N 2-12 grossly normal. Moves all 4 limbs. Diffuse weakness No focal deficits. Strength and sensation grossly intact.. Skin:no rash Joints: No active swelling. No inflammation. Lymphatic system. No LN neck axilla. Results CBC & Chem 7: 05/12/19 08:39 05/12/19 08:39 Labs: Abnormal Lab Results - Last 24 Hours (Table) 05/11/19 Range/Units 07:08 Chloride 113 H (98-107) mmol/L Carbon Dioxide 19 L (22-30) mmol/L Thrombosis Risk Factor Assmnt - Choose All That Apply Any of the Below Risk Factors Present?: Yes Each Factor Represents 1 point: Age 41-60 years Other Risk Factors: No Other congenital or acquired thrombophilia - If yes, enter type in comment: No Thrombosis Risk Factor Assessment Total Risk Factor Score: 1 Thrombosis Risk Factor Assessment Level: Low Risk Assessment and Plan Assessment: Abdominal pain, colitis Gastroesophageal reflux disease IBS, chronic Ongoing nicotine dependence History of cholecystectomy History of appendectomy Plan: Continue current medication regime ,monitoring and symptomatic treatment. Maintain IV fluid hydration. IV Tylenol, Bentyl added to med regime. Stool for occult blood ordered. Clear liquid diet ordered. Evaluated by surgery with recommendations noted and appreciated. Will discharge patient from the ER later this afternoon pending stool for occult blood negative and pain improved. Discussed with patient and [employer] PL[employer] DIRECTORVIOLA plan. The impression and plan of care has been dictated as directed. : I performed a history and examination of this patient, discussed the same with the dictator. I agree with the dictator's note ,documented as a scribe. Any additional findings or plans will be noted.
--- NOTE | 2019-05-12 11:34 | P.DS ---
Providers Date of admission: 05/11/19 09:52 Expected date of discharge: 05/12/19 Attending physician: Dipak Winston Consults: 05/11/19 09:53 Consult Physician Routine Consulting Provider: Ahmet Edwards Consult Reason/Comments: ab pain Do you want consulting provider notified?: Yes Primary care physician: Dipak [facility] Course: Final Diagnoses: Abdominal pain, colitis Gastroesophageal reflux disease IBS, chronic Ongoing nicotine dependence History of cholecystectomy History of appendectomy Hospital course:This is a 43-year-old female with history of gastroesophageal reflux disease, IBS, appendectomy, cholecystectomy, ongoing nicotine dependence and multiple other medical issues presented to the ER with mid epigastric tenderness 1 hour. Denies nausea, vomiting. Reported some diarrhea over the last week which is her baseline secondary to IBS. Denies fevers or chills. Afebrile, normal WBC abdominal/pelvis CT reported possible underlying mild enterocolitis and or diarrhea, no bowel obstruction. Vital signs stable, labs unremarkable. EKG reporting normal sinus rhythm. Troponins negative 1. Denies chest pain, palpitations or shortness of breath. Denies lightheadedness dizziness or focal deficits.Surgical consult in place. Stool for occult blood negative. Pain significantly improved on Bentyl, Tylenol. Midepigastric pain/tenderness resolved. Mild Bilateral lower quadrant cramping. Tolerating diet no nausea vomiting or diarrhea. Significant clinical improvement. Patient is being discharged home in a stable condition with guarded prognosis. Recommend outpatient colonoscopy, smoking cessation. EXAM: GENERAL: Alert and oriented 3, no acute distress CARDIOVASCULAR: S1, S2 regular.No murmur RESPIRATION: Breath sounds diminished in the bases. ABDOMEN: Soft, nondistended,no tenderness ,No guarding. no masses palpable. Bowel sounds heard. NERVOUS SYSTEM: No focal deficits. The impression and plan of care has been dictated as directed. : I performed a history and examination of this patient, discussed the same with the dictator. I agree with the dictator's note ,documented as a scribe. Any additional findings or plans will be noted. Patient Condition at Discharge: Stable Plan - Discharge Summary Discharge Rx Participant: No New Discharge Prescriptions: New Dicyclomine [Bentyl] 20 mg PO TID #21 tab Nicotine 14Mg/24Hr Patch [Habitrol] 1 patch TRANSDERM DAILY #30 patch Pantoprazole Sodium [Protonix] 40 mg PO DAILY #30 tablet. Continue Amitriptyline HCl [Elavil] 75 tab PO HS Topiramate [Topamax] 100 mg PO HS Meloxicam [Mobic] 7.5 mg PO DAILY PRN PRN Reason: Pain Discharge Medication List Amitriptyline HCl [Elavil] 75 tab PO HS 09/25/17 [History] Topiramate [Topamax] 100 mg PO HS 09/25/17 [History] Meloxicam [Mobic] 7.5 mg PO DAILY PRN 05/11/19 [History] Dicyclomine [Bentyl] 20 mg PO TID #21 tab 05/12/19 [Rx] Nicotine 14Mg/24Hr Patch [Habitrol] 1 patch TRANSDERM DAILY #30 patch 05/12/19 [Rx] Pantoprazole Sodium [Protonix] 40 mg PO DAILY #30 tablet. 05/12/19 [Rx] Follow up Appointment(s)/Referral(s): Dipak Winston Jr, DO [Primary Care Provider] - 05/15/19 10:00 am Ahmet Edwards MD [STAFF PHYSICIAN] - As Needed Patient Instructions/Handouts: How to Stop Smoking (DC), Colitis (ED) Discharge Disposition: HOME SELF-CARE
== END 2019-05-12 10:25 | disposition home or self-care (01) ==
LOC: EC 06:47 → 6NMEDSUR 09:52
PROVIDERS: ADMIT Family Medicine; ATTEND Family Medicine
DX: K52.9 Noninfective gastroenteritis and colitis, unspecified (principal); K21.9 Gastro-esophageal reflux disease without esophagitis; K58.0 Irritable bowel syndrome with diarrhea; F17.200 Nicotine dependence, unspecified, uncomplicated; Z88.8 Allergy status to other drugs, medicaments and biological substances; Z79.899 Other long term (current) drug therapy; Z90.49 Acquired absence of other specified parts of digestive tract; Z90.710 Acquired absence of both cervix and uterus; Z80.3 Family history of malignant neoplasm of breast; Z80.7 Family history of other malignant neoplasms of lymphoid, hematopoietic and related tissues
CPT/HCPCS: 96361 ×3; 96375 ×2; 96376; 96372; 96374; 99285; 36415; 93005; 80053 ×2; 82150; 83690; 84484 ×2; 85025 ×2; 85610; 85730; 82272; 81003; 74177; G0378 ×2; S4990 ×2; J2270; J0500; J2765; J0131; C9113; Q9967

== ENCOUNTER → 2019-06-25 | Outpatient (CLI) | payer OTHER ==
--- NOTE | 2019-06-25 15:25 | XR ---
EXAMINATION TYPE: XR knee complete LT DATE OF EXAM: 06/25/2019 COMPARISON: NONE HISTORY: Pain TECHNIQUE: Three views are submitted. FINDINGS: Joint spaces are preserved. Osseous structures are intact. No acute fracture seen. Sclerotic densi ty involving the distal femur most likely on the basis of a bone island. Small amount of fluid in the suprapatellar bursa. IMPRESSION: 1. No acute fracture or dislocation. 2. Small amount of fluid in the suprapatellar bursa suspected. If there is concern for internal deran gement of the knee correlate with MRI
== END | disposition home or self-care (01) ==
LOC: RADXRMAIN 15:10
PROVIDERS: ATTEND Family Medicine
DX: M25.569 Pain in unspecified knee (principal)

== ENCOUNTER → 2019-10-26 | Outpatient (CLI) | payer OTHER ==
--- NOTE | 2019-10-26 10:55 | MM ---
Reason for exam: follow-up at short interval from prior study. Last mammogram was performed 1 year and 4 months ago. History: Patient is postmenopausal. Family history of premenopausal breast cancer in mother at age 47. Benign MG stereo VAD BX LT of the left breast, October 03, 2017. Took hormonal contraceptives for 9 years beginning at age 14. Took estrogen for 1 year beginning at age 23. Took progesterone for 1 year beginning at age 23. Physical Findings: Nurse did not find any significant physical abnormalities on exam. MG 3D Diag Mammo W/Cad YAZAN Bilateral CC and MLO view(s) were taken. Prior study comparison: July 10, 2018, bilateral MG diagnostic mammo w CAD YAZAN. January 20, 2018, left breast MG diagnostic mammo LT w CAD. The breast tissue is heterogeneously dense. This may lower the sensitivity of mammography. Stable benign calcifications. No significant new findings when compared with previous films. These results were verbally communicated with the patient and result sheet given to the patient on 10/26/19. ASSESSMENT: Incomplete: need additional imaging evaluation, BI-RAD 0 RECOMMENDATION: Ultrasound of the right breast. Manage patient on a clinical basis.
--- NOTE | 2019-10-26 10:56 | USB ---
Reason for exam: additional evaluation requested from abnormal screening. History: Patient is postmenopausal. Family history of premenopausal breast cancer in mother at age 47. Benign MG stereo VAD BX LT of the left breast, October 03, 2017. Took hormonal contraceptives for 9 years beginning at age 14. Took estrogen for 1 year beginning at age 23. Took progesterone for 1 year beginning at age 23. US Breast Axilla RT Right limited breast ultrasound including focal area of concern, retroareolar and axilla demonstrates no cystic or solid lesion seen. These results were verbally communicated with the patient and result sheet given to the patient on 10/26/19. ASSESSMENT: Negative, BI-RAD 1 RECOMMENDATION: Routine screening mammogram of both breasts in 1 year. Manage patient on a clinical basis.
== END | disposition home or self-care (01) ==
LOC: RADMAMWWP 09:25
PROVIDERS: ATTEND Nurse Practitioner Family
DX: R92.8 Other abnormal and inconclusive findings on diagnostic imaging of breast (principal); N63.10 Unspecified lump in the right breast, unspecified quadrant
CPT/HCPCS: 77062; 77066

== ENCOUNTER → 2020-04-27 | Outpatient (CLI) | payer OTHER ==
--- NOTE | 2020-04-27 12:29 | XR ---
EXAMINATION TYPE: XR abdomen 1V DATE OF EXAM: 04/27/2020 COMPARISON: NONE HISTORY: Pain TECHNIQUE: One view abdominal series FINDINGS: The osseous structures are intact. The bowel gas pattern is nonspecific. Lung bases are clear. Surg ical clips right upper quadrant. Tiny calcification pelvis likely vascular. IMPRESSION: 1. Nonspecific abdomen.
== END | disposition home or self-care (01) ==
LOC: RADXRMAIN 12:00
PROVIDERS: ATTEND Family Medicine
DX: R10.31 Right lower quadrant pain (principal)
CPT/HCPCS: 74018

== ENCOUNTER 2020-04-30 11:32 | Emergency (ER) | payer OTHER ==
[2020-04-30 11:39] VITALS: RESP 18; TEMP 98.4
--- NOTE | 2020-04-30 11:42 | ED ---
Abdominal Pain HPI - General Chief Complaint: Abdominal Pain Stated Complaint: abd pain Time Seen by Provider: 04/30/20 11:40 Source: patient Mode of arrival: ambulatory Limitations: no limitations - History of Present Illness Initial Comments: [age]-old female presenting to the emergency department with a chief complaint abdominal pain. States the pain started about 5 days ago and the right lower quadrant region. He states the pain is not extending to the right flank region and back. Patient states the pain is constant and sharp in nature. Denies any alleviating aggravated factors. Patient states the pain was evaluated by her primary care physician who ordered an x-ray. Patient states the results laboratory work obtained which showed no significant finding except for the UA was positive for hematuria. Patient does have surgical history of cholecystectomy and appendectomy. Denies any vaginal or urinary symptoms. States her primary care physician prescribed her [place] for pain but is not resolving the pain. denies any nausea or vomiting. But does report diarrhea for the past 5 days. Denies hematuria, hematochezia or melena. - Related Data Home Medications Medication Instructions Recorded Confirmed Amitriptyline HCl [Elavil] 75 tab PO HS 09/25/17 05/11/19 Topiramate [Topamax] 100 mg PO HS 09/25/17 05/11/19 Meloxicam [Mobic] 7.5 mg PO DAILY PRN 05/11/19 05/11/19 Previous Rx's Medication Instructions Recorded Dicyclomine [Bentyl] 20 mg PO TID #21 tab 05/12/19 Nicotine 14Mg/24Hr Patch [Habitrol] 1 patch TRANSDERM DAILY #30 patch 05/12/19 Pantoprazole Sodium [Protonix] 40 mg PO DAILY #30 tablet. 05/12/19 Dicyclomine [Bentyl] 20 mg PO TID #30 tablet 04/30/20 Allergies Allergy/AdvReac Type Severity Reaction Status Date / Time bupropion [From Wellbutrin] Allergy Rash/Hives Verified 04/30/20 11:38 ondansetron [From Zofran] Allergy Rash/Hives Verified 04/30/20 11:38 Review of Systems ROS Statement: Those systems with pertinent positive or pertinent negative responses have been documented in the HPI. ROS Other: All systems not noted in ROS Statement are negative. Past Medical History Past Medical History: GERD/Reflux, Pneumonia Additional Past Medical History / Comment(s): Hypotension, migraines, IBS, bronchitis, sinus problems/seasonal allergies. History of Any Multi-Drug Resistant Organisms: None Reported Past Surgical History: Appendectomy, Cholecystectomy, Hysterectomy, Orthopedic Surgery, Tonsillectomy Additional Past Surgical History / Comment(s): Laryngoscopy to remove tumor from neck, Cervical surgery, L/R wrist ganglion cyst removals, benign skin lesions removed, laparoscopic surgeries for ovarian cyst removals, diagnostic lap with R oophorectomy. Past Anesthesia/Blood Transfusion Reactions: No Reported Reaction Additional Past Anesthesia/Blood Transfusion Reaction / Comment(s): sometimes takes long "to go under" Past Psychological History: No Psychological Hx Reported Smoking Status: Current every day smoker Past Alcohol Use History: Occasional Past Drug Use History: None Reported - Past Family History Mother Family Medical History: Cancer Additional Family Medical History / Comment(s): Breast cancer. Mother is living. Son(s) Family Medical History: Cancer Additional Family Medical History / Comment(s): hodgkins lymphoma Father Family Medical History: No Reported History Additional Family Medical History / Comment(s): Father is healthy General Exam Limitations: no limitations General appearance: alert, in no apparent distress Head exam: Present: atraumatic, normocephalic, normal inspection Eye exam: Present: normal appearance, PERRL, EOMI Pupils: Present: normal accommodation ENT exam: Present: normal exam, normal oropharynx, mucous membranes moist Neck exam: Present: normal inspection, full ROM. Absent: tenderness Respiratory exam: Present: normal lung sounds bilaterally. Absent: respiratory distress, wheezes, rales Cardiovascular Exam: Present: regular rate, normal rhythm, normal heart sounds. Absent: systolic murmur, diastolic murmur GI/Abdominal exam: Present: soft, tenderness (Right lower quadrant and right flank pain). Absent: distended, guarding, rebound, rigid Extremities exam: Present: normal inspection, full ROM, normal capillary refill. Absent: tenderness Back exam: Present: normal inspection, full ROM, CVA tenderness (R). Absent: tenderness, CVA tenderness (L) Neurological exam: Present: alert, oriented X3, normal gait Psychiatric exam: Present: normal affect, normal mood Skin exam: Present: warm, dry, intact, normal color Course Vital Signs 04/30/20 04/30/20 11:36 12:35 Temperature 98.4 F Pulse Rate 63 108 H Respiratory 18 18 Rate Blood Pressure 117/77 107/84 O2 Sat by Pulse 97 99 Oximetry Medical Decision Making - Medical Decision Making 44-year-old female presenting to the emergency department with a chief complaint abdominal pain. On physical examination patient has right flank and right CVA tenderness. She is otherwise well-appearing. Patient was given antiemetics, IV fluids and Toradol. CBC CMP unremarkable. UA shows trace amounts of blood with no . I have a concern for a kidney stone. CT abdomen and pelvis without contrast reveals no signs of nephrolithiasis. Considering the patient has diarrhea, symptoms could be related to colitis. Patient was also given morphine and Bentyl for symptomatic control. Patient will be discharged with Bentyl. Advised to follow a clear liquid diet. Return parameters discussed w ith patient was understanding and agreeable. Advised to follow with the primary care physician. Case discussed with physician. - Lab Data Result diagrams: 04/30/20 12:07 04/30/20 12:07 Lab Results 04/30/20 04/30/20 04/30/20 Range/Units 12:07 12:07 12:07 WBC 6.5 (3.8-10.6) k/uL RBC 4.72 (3.80-5.40) m/uL Hgb 14.2 (11.4-16.0) gm/dL Hct 40.4 (34.0-46.0) % MCV 85.6 (80.0-100.0) fL MCH 30.0 (25.0-35.0) pg MCHC 35.0 (31.0-37.0) g/dL RDW 12.7 (11.5-15.5) % Plt Count 273 (150-450) k/uL MPV 6.6 Neutrophils % 54 % Lymphocytes % 34 % Monocytes % 4 % Eosinophils % 5 % Basophils % 1 % Neutrophils # 3.5 (1.3-7.7) k/uL Lymphocytes # 2.2 (1.0-4.8) k/uL Monocytes # 0.3 (0-1.0) k/uL Eosinophils # 0.3 (0-0.7) k/uL Basophils # 0.1 (0-0.2) k/uL Sodium (137-145) mmol/L Potassium (3.5-5.1) mmol/L Chloride (98-107) mmol/L Carbon Dioxide (22-30) mmol/L Anion Gap mmol/L BUN (7-17) mg/dL Creatinine (0.52-1.04) mg/dL Est GFR (CKD-EPI)AfAm (>60 ml/min/1.73 sqM) Est GFR (CKD-EPI)NonAf (>60 ml/min/1.73 sqM) Glucose (74-99) mg/dL Calcium (8.4-10.2) mg/dL Total Bilirubin (0.2-1.3) mg/dL AST (14-36) U/L ALT (4-34) U/L Alkaline Phosphatase (38-126) U/L Total Protein (6.3-8.2) g/dL Albumin (3.5-5.0) g/dL Lipase (23-300) U/L Urine Color Light Yellow Urine Appearance Clear (Clear) Urine pH 5.5 (5.0-8.0) Ur Specific [place] 1.006 (1.001-1.035) Urine Protein Negative (Negative) Urine Glucose (UA) Negative (Negative) Urine Ketones Negative (Negative) Urine Blood Trace H (Negative) Urine Nitrite Negative (Negative) Urine Bilirubin Negative (Negative) Urine Urobilinogen <2.0 (<2.0) mg/dL Ur Leukocyte Esterase Negative (Negative) Urine RBC 1 (0-5) /hpf Urine WBC <1 (0-5) /hpf Urine Mucus Rare H (None) /hpf Urine HCG, Qual Not Detected (Not Detectd) 04/30/20 Range/Units 12:07 WBC (3.8-10.6) k/uL RBC (3.80-5.40) m/uL Hgb (11.4-16.0) gm/dL Hct (34.0-46.0) % MCV (80.0-100.0) fL MCH (25.0-35.0) pg MCHC (31.0-37.0) g/dL RDW (11.5-15.5) % Plt Count (150-450) k/uL MPV Neutrophils % % Lymphocytes % % Monocytes % % Eosinophils % % Basophils % % Neutrophils # (1.3-7.7) k/uL Lymphocytes # (1.0-4.8) k/uL Monocytes # (0-1.0) k/uL Eosinophils # (0-0.7) k/uL Basophils # (0-0.2) k/uL Sodium 140 (137-145) mmol/L Potassium 3.6 (3.5-5.1) mmol/L Chloride 112 H (98-107) mmol/L Carbon Dioxide 23 (22-30) mmol/L Anion Gap 5 mmol/L BUN 5 L (7-17) mg/dL Creatinine 0.85 (0.52-1.04) mg/dL Est GFR (CKD-EPI)AfAm >90 (>60 ml/min/1.73 sqM) Est GFR (CKD-EPI)NonAf 83 (>60 ml/min/1.73 sqM) Glucose 88 (74-99) mg/dL Calcium 9.2 (8.4-10.2) mg/dL Total Bilirubin 0.3 (0.2-1.3) mg/dL AST 17 (14-36) U/L ALT 11 (4-34) U/L Alkaline Phosphatase 86 (38-126) U/L Total Protein 6.6 (6.3-8.2) g/dL Albumin 3.8 (3.5-5.0) g/dL Lipase 38 (23-300) U/L Urine Color Urine Appearance (Clear) Urine pH (5.0-8.0) Ur Specific [place] (1.001-1.035) Urine Protein (Negative) Urine Glucose (UA) (Negative) Urine Ketones (Negative) Urine Blood (Negative) Urine Nitrite (Negative) Urine Bilirubin (Negative) Urine Urobilinogen (<2.0) mg/dL Ur Leukocyte Esterase (Negative) Urine RBC (0-5) /hpf Urine WBC (0-5) /hpf Urine Mucus (None) /hpf Urine HCG, Qual (Not Detectd) Disposition Clinical Impression: Abdominal pain Disposition: HOME SELF-CARE Condition: Stable Instructions (If sedation given, give patient instructions): Colitis (ED), Clear Liquid Diet (ED) Additional Instructions: Continue taking the [place] for pain. Take prescribed medication as directed. Follow clear liquid diet. Follow up with her primary care physician.Please return to the Emergency Department if symptoms worsen or any other concerns. Is patient prescribed a controlled substance at d/c from ED?: No Referrals: Dipak Winston Jr, [Primary Care Provider] - 1-2 days Time of Disposition: 13:31
[2020-04-30] MEDS ORDERED: SODIUM CHLORIDE 0.9% 1,000 ML IV STA (11:54)
[2020-04-30] MEDS ORDERED: KETOROLAC 15 MG/ML 1 ML VIAL IVP STA (11:58)
[2020-04-30] MEDS ORDERED: METOCLOPRAMIDE 5 MG/ML 2 ML VIAL IVP STA (11:58)
[2020-04-30] MEDS ORDERED: diphenhydrAMINE 50 MG/ML 1 ML VIAL IVP STA (11:58)
[2020-04-30 12:23] LABS: Basophils # (A) 0.1 k/uL (0-0.2); Basophils % (A) 1 %; Eosinophils # (A) 0.3 k/uL (0-0.7); Eosinophils % (A) 5 %; HCT 40.4 % (34.0-46.0); HGB 14.2 gm/dL (11.4-16.0); Lymphocytes # (A) 2.2 k/uL (1.0-4.8); Lymphocytes % (A) 34 %; MCV 85.6 fL (80.0-100.0); Mean Platelet Volume 6.6; Monocytes # (A) 0.3 k/uL (0-1.0); Monocytes % (A) 4 %; Neutrophils # (A) 3.5 k/uL (1.3-7.7); Neutrophils % (A) 54 %; Platelet Count 273 k/uL (150-450); RBC 4.72 m/uL (3.80-5.40); RDW 12.7 % (11.5-15.5); WBC 6.5 k/uL (3.8-10.6)
[2020-04-30 12:27] LABS: Appearance,Urine Clear (Clear); Bilirubin,Urine Negative (Negative); Blood,Urine Trace (Negative); Color,Urine Light Yellow; Glucose,Urine (UA) Negative (Negative); Ketones,Urine Negative (Negative); Leukocyte Esterase,Urine Negative (Negative); Mucus,Urine Rare /hpf; Nitrite,Urine Negative (Negative); PH, Urine 5.5 (5.0-8.0); Protein,Urine Negative (Negative); RBC,Urine 1 /hpf (0-5); Specific Gravity,Urine 1.006 (1.001-1.035); Urobilinogen,Urine <2.0 mg/dL (<2.0); WBC,Urine <1 /hpf (0-5)
[2020-04-30 12:38] LABS: ALT 11 U/L (4-34); AST 17 U/L (14-36); African American GFR (CKD) >90 (>60 ml/min/1.73 sqM); Albumin 3.8 g/dL (3.5-5.0); Alkaline Phosphatase 86 U/L (38-126); Anion Gap 5 mmol/L; Blood Urea Nitrogen 5 mg/dL (7-17); Calcium 9.2 mg/dL (8.4-10.2); Carbon Dioxide 23 mmol/L (22-30); Chloride 112 mmol/L (98-107); Glucose 88 mg/dL (74-99); Lipase 38 U/L (23-300); Non-African American GFR(CKD) 83 (>60 ml/min/1.73 sqM); Potassium 3.6 mmol/L (3.5-5.1); Sodium 140 mmol/L (137-145); Total Bilirubin 0.3 mg/dL (0.2-1.3); Total Protein 6.6 g/dL (6.3-8.2)
--- NOTE | 2020-04-30 13:07 | CT ---
EXAMINATION TYPE: CT abdomen pelvis wo con DATE OF EXAM: 04/30/2020 COMPARISON: Prior CT 05/11/2019 HISTORY: Right sided flank pain CT DLP: 401.6 mGycm Automated exposure control for dose reduction was used. TECHNIQUE: Helical acquisition of images from the lung bases through the pelvis. FINDINGS: Lack of intravenous contrast could compromise sensitivity. There is an umbilical hernia con taining fat. LUNG BASES: No significant abnormality is appreciated. AORTA: No significant abnormality is appreciataed. LIVER/GB: Patient is post cholecystectomy. No evident liver mass. Suspect a Marya's lobe is present PANCREAS: No significant abnormality is seen. SPLEEN: No significant abnormality is seen. ADRENALS: No significant abnormality is seen. KIDNEYS: Parapelvic cysts upper pole left kidney REPRODUCTIVE ORGANS: Not seen URINARY BLADDER: No significant abnormality is seen. BOWEL: No significant abnormality is seen. Surgical clips in the right upper quadrant, correlate for possible prior appendectomy FREE AIR: No Free Air is visible. ASCITES: None visible. PELVIC ADENOPATHY: None visualized. RETROPERITONEAL ADENOPATHY: No Retroperitoneal Adenopathy visible. OSSEOUS STRUCTURES: No significant abnormality is seen. IMPRESSION: POSTOP CHANGES. NONCONTRAST EXAM.
[2020-04-30] MEDS ORDERED: DICYCLOMINE 20 MG TAB PO STA (13:31)
[2020-04-30] MEDS ORDERED: MORPHINE SULFATE 4 MG/ML SYRINGE IVP STA (13:32)
[2020-04-30 13:44] VITALS: BP 116/82; PULSE 82
== END 2020-04-30 13:51 | disposition home or self-care (01) ==
LOC: EC 11:32
DX: R10.31 Right lower quadrant pain (principal); R31.9 Hematuria, unspecified; F17.200 Nicotine dependence, unspecified, uncomplicated; Z88.8 Allergy status to other drugs, medicaments and biological substances; Z86.69 Personal history of other diseases of the nervous system and sense organs; Z90.710 Acquired absence of both cervix and uterus; Z90.49 Acquired absence of other specified parts of digestive tract
CPT/HCPCS: 36415; 80053; 83690; 85025; 81001; 81025; 74176; 99284; 96374; 96375 ×3; 96361; J2270; J1200; J2765; J1885

== ENCOUNTER 2020-05-17 16:51 | Emergency (ER) | payer OTHER ==
[2020-05-17 16:56] VITALS: TEMP 98.3
--- NOTE | 2020-05-17 17:06 | ED ---
Dizziness HPI - General Chief Complaint: Dizziness Stated Complaint: dizzy Source: patient, family Mode of arrival: ambulatory Limitations: no limitations - History of Present Illness Initial Comments: 44-year-old female past history of IBS, migraines who presents to the emergency department with reported for dizziness symptoms. States it's been present since Saturday. She had sudden onset of room spinning sensation which is worse with positional changes. Reports that the symptoms will last for a few minutes and then would stop. Afterwards the patient would get a headache. Patient does have a history of migraines however states that the headache that she is experiencing now is not as severe. She's never had vertiginous symptoms before. Denies any visual changes. No neck pain or stiffness. No fevers or chills. Denies any recent head trauma. No chiropractic manipulations of the neck. No history of strokes. Denies any unilateral numbness or weakness in her e xtremities. Denies any chest pain or shortness of breath. No abdominal pain. No concern for . No other alleviating, medical detail representative modifying factors - Related Data Home Medications Medication Instructions Recorded Confirmed Amitriptyline HCl [Elavil] 75 tab PO HS 09/25/17 05/17/20 Topiramate [Topamax] 100 mg PO HS 09/25/17 05/17/20 ALPRAZolam [Xanax] 0.5 mg PO BID PRN 05/17/20 05/17/20 Butalb/Acetaminophen/Caffeine 1 - 2 cap PO Q4HR PRN 05/17/20 05/17/20 [Fioricet 50-300-40 mg Capsule] Dicyclomine [Bentyl] 20 mg PO TID PRN 05/17/20 05/17/20 HYDROcodone/APAP 5-325MG [[place] 1 tab PO Q8H PRN 05/17/20 05/17/20 5-325] Previous Rx's Medication Instructions Recorded Pantoprazole Sodium [Protonix] 40 mg PO DAILY #30 tablet. 05/12/19 Diazepam [Valium] 5 mg PO Q8H PRN 3 Days #9 tab 05/17/20 Meclizine [Antivert] 25 mg PO TID PRN #20 tab 05/17/20 Allergies Allergy/AdvReac Type Severity Reaction Status Date / Time bupropion [From Wellbutrin] Allergy Rash/Hives Verified 05/17/20 19:38 ondansetron [From Zofran] Allergy Rash/Hives Verified 05/17/20 19:38 Review of Systems ROS Statement: Those systems with pertinent positive or pertinent negative responses have been documented in the HPI. ROS Other: All systems not noted in ROS Statement are negative. Past Medical History Past Medical History: GERD/Reflux, Pneumonia Additional Past Medical History / Comment(s): Hypotension, migraines, IBS, bronchitis, sinus problems/seasonal allergies. History of Any Multi-Drug Resistant Organisms: None Reported Past Surgical History: Appendectomy, Cholecystectomy, Hysterectomy, Orthopedic Surgery, Tonsillectomy Additional Past Surgical History / Comment(s): Laryngoscopy to remove tumor from neck, Cervical surgery, L/R wrist ganglion cyst removals, benign skin lesions removed, laparoscopic surgeries for ovarian cyst removals, diagnostic lap with R oophorectomy. Past Anesthesia/Blood Transfusion Reactions: No Reported Reaction Additional Past Anesthesia/Blood Transfusion Reaction / Comment(s): sometimes takes long "to go under" Past Psychological History: No Psychological Hx Reported Smoking Status: Current every day smoker Past Alcohol Use History: Occasional Past Drug Use History: None Reported - Past Family History Mother Family Medical History: Cancer Additional Family Medical History / Comment(s): Breast cancer. Mother is living. Son(s) Family Medical History: Cancer Additional Family Medical History / Comment(s): hodgkins lymphoma Father Family Medical History: No Reported History Additional Family Medical History / Comment(s): Father is healthy General Exam Limitations: no limitations Course Vital Signs 05/17/20 05/17/20 16:54 20:02 Temperature 98.3 F Pulse Rate 95 86 Respiratory 20 18 Rate Blood Pressure 141/91 127/89 O2 Sat by Pulse 100 99 Oximetry EKG Findings - EKG Comments: EKG Findings:: EKG demonstrates sinus rhythm with ventricular rate of 79. TN interval 158. QRS 100. QTC of 460. No acute ST segment elevations or depressions Medical Decision Making - Medical Decision Making Upon arrival patient was placed into room 17. A thorough history and physical exam was performed. IV is established. Laboratory studies were conducted. Tot al EKG was performed. Patient went for CT of her brain. Laboratory studies are reviewed and discussed with the patient. CT is performed and demonstrates atrophy with no acute findings. Patient was given a migraine cocktail. Reevaluation demonstrates the patient does have improvement in her headache at this time. She'll be discharged home and has a follow-up appointment with her primary care doctor tomorrow. Patient the require neurology evaluation. Instructed her to return to the emergency room for any new or worsening symptoms. Will be given prescriptions for meclizine and Valium for her vertiginous symptoms. Patient agreed to this and was discharged home in stable condition - Lab Data Result diagrams: 05/17/20 17:55 05/17/20 17:55 Lab Results 05/17/20 05/17/20 05/17/20 Range/Units 17:55 17:55 17:55 WBC 7.6 (3.8-10.6) k/uL RBC 4.47 (3.80-5.40) m/uL Hgb 13.6 (11.4-16.0) gm/dL Hct 39.1 (34.0-46.0) % MCV 87.4 (80.0-100.0) fL MCH 30.5 (25.0-35.0) pg MCHC 34.9 (31.0-37.0) g/dL RDW 13.7 (11.5-15.5) % Plt Count 262 (150-450) k/uL MPV 7.0 Neutrophils % 50 % Lymphocytes % 42 % Monocytes % 3 % Eosinophils % 3 % Basophils % 1 % Neutrophils # 3.8 (1.3-7.7) k/uL Lymphocytes # 3.2 (1.0-4.8) k/uL Monocytes # 0.2 (0-1.0) k/uL Eosinophils # 0.3 (0-0.7) k/uL Basophils # 0.1 (0-0.2) k/uL PT 10.9 (9.0-12.0) sec INR 1.0 (<1.2) Sodium 143 (137-145) mmol/L Potassium 3.4 L (3.5-5.1) mmol/L Chloride 111 H (98-107) mmol/L Carbon Dioxide 22 (22-30) mmol/L Anion Gap 10 mmol/L BUN 6 L (7-17) mg/dL Creatinine 0.84 (0.52-1.04) mg/dL Est GFR (CKD-EPI)AfAm >90 (>60 ml/min/1.73 sqM) Est GFR (CKD-EPI)NonAf 84 (>60 ml/min/1.73 sqM) Glucose 87 (74-99) mg/dL Calcium 9.6 (8.4-10.2) mg/dL Total Bilirubin 0.2 (0.2-1.3) mg/dL AST 24 (14-36) U/L ALT 16 (4-34) U/L Alkaline Phosphatase 92 (38-126) U/L Troponin I (0.000-0.034) ng/mL Total Protein 7.4 (6.3-8.2) g/dL Albumin 4.4 (3.5-5.0) g/dL 05/17/20 Range/Units 17:55 WBC (3.8-10.6) k/uL RBC (3.80-5.40) m/uL Hgb (11.4-16.0) gm/dL Hct (34.0-46.0) % MCV (80.0-100.0) fL MCH (25.0-35.0) pg MCHC (31.0-37.0) g/dL RDW (11.5-15.5) % Plt Count (150-450) k/uL MPV Neutrophils % % Lymphocytes % % Monocytes % % Eosinophils % % Basophils % % Neutrophils # (1.3-7.7) k/uL Lymphocytes # (1.0-4.8) k/uL Monocytes # (0-1.0) k/uL Eosinophils # (0-0.7) k/uL Basophils # (0-0.2) k/uL PT (9.0-12.0) sec INR (<1.2) Sodium (137-145) mmol/L Potassium (3.5-5.1) mmol/L Chloride (98-107) mmol/L Carbon Dioxide (22-30) mmol/L Anion Gap mmol/L BUN (7-17) mg/dL Creatinine (0.52-1.04) mg/dL Est GFR (CKD-EPI)AfAm (>60 ml/min/1.73 sqM) Est GFR (CKD-EPI)NonAf (>60 ml/min/1.73 sqM) Glucose (74-99) mg/dL Calcium (8.4-10.2) mg/dL Total Bilirubin (0.2-1.3) mg/dL AST (14-36) U/L ALT (4-34) U/L Alkaline Phosphatase (38-126) U/L Troponin I <0.012 (0.000-0.034) ng/mL Total Protein (6.3-8.2) g/dL Albumin (3.5-5.0) g/dL Disposition Clinical Impression: Vertigo Disposition: HOME SELF-CARE Condition: Stable Instructions (If sedation given, give patient instructions): Dizziness (ED) Additional Instructions: Please follow up with your primary doctor at your scheduled appointment tomorrow. Take the meclizine during the day and Valium at night if needed for dizziness. You may need to see a neurologist. Return to the emergency room for any new or worsening symptoms Prescriptions: Meclizine [Antivert] 25 mg PO TID PRN #20 tab PRN Reason: Vertigo Diazepam [Valium] 5 mg PO Q8H PRN 3 Days #9 tab PRN Reason: Vertigo Is patient prescribed a controlled substance at d/c from ED?: Yes When asked, does pt state using other controlled substances?: No If prescribed controlled substance>3 days was MAPS reviewed?: Prescribed <3 Days Referrals: Dipak Winston Jr, [Primary Care Provider] - 1-2 days Time of Disposition: 19:36
[2020-05-17] MEDS ORDERED: SODIUM CHLORIDE 0.9% 1,000 ML IV STA (17:36)
[2020-05-17] MEDS ORDERED: DEXAMETHASONE SOD PHOSPHATE 10 MG/ML 1 ML VIAL IV STA (17:37)
[2020-05-17] MEDS ORDERED: METOCLOPRAMIDE 5 MG/ML 2 ML VIAL IVP STA (17:37)
[2020-05-17] MEDS ORDERED: diphenhydrAMINE 50 MG/ML 1 ML VIAL IVP STA (17:37)
[2020-05-17] MEDS ORDERED: MAGNESIUM SULFATE-D5W PMX 1 GM in DEXTROSE/WATER 1 100ML.BAG IVPB ONE (17:38)
[2020-05-17 18:02] LABS: Basophils # (A) 0.1 k/uL (0-0.2); Basophils % (A) 1 %; Eosinophils # (A) 0.3 k/uL (0-0.7); Eosinophils % (A) 3 %; HCT 39.1 % (34.0-46.0); HGB 13.6 gm/dL (11.4-16.0); Lymphocytes # (A) 3.2 k/uL (1.0-4.8); Lymphocytes % (A) 42 %; MCH 30.5 pg (25.0-35.0); MCHC 34.9 g/dL (31.0-37.0); MCV 87.4 fL (80.0-100.0); Monocytes # (A) 0.2 k/uL (0-1.0); Monocytes % (A) 3 %; Neutrophils # (A) 3.8 k/uL (1.3-7.7); Neutrophils % (A) 50 %; Platelet Count 262 k/uL (150-450); RBC 4.47 m/uL (3.80-5.40); RDW 13.7 % (11.5-15.5); WBC 7.6 k/uL (3.8-10.6)
[2020-05-17 18:10] LABS: Prothrombin Time 10.9 sec (9.0-12.0)
[2020-05-17 18:12] LABS: ALT 16 U/L (4-34); AST 24 U/L (14-36); African American GFR (CKD) >90 (>60 ml/min/1.73 sqM); Albumin 4.4 g/dL (3.5-5.0); Alkaline Phosphatase 92 U/L (38-126); Anion Gap 10 mmol/L; Blood Urea Nitrogen 6 mg/dL (7-17); Calcium 9.6 mg/dL (8.4-10.2); Carbon Dioxide 22 mmol/L (22-30); Chloride 111 mmol/L (98-107); Glucose 87 mg/dL (74-99); Non-African American GFR(CKD) 84 (>60 ml/min/1.73 sqM); Potassium 3.4 mmol/L (3.5-5.1); Sodium 143 mmol/L (137-145); Total Bilirubin 0.2 mg/dL (0.2-1.3); Total Protein 7.4 g/dL (6.3-8.2)
--- NOTE | 2020-05-17 18:37 | CT ---
EXAMINATION TYPE: CT brain wo con DATE OF EXAM: 05/17/2020 COMPARISON: None HISTORY: Headache and dizziness x3 days. CT DLP: 1063.4 mGycm Automated exposure control for dose reduction was used. There is some cerebral cortical atrophy. There is no mass effect nor midline shift. There is no sign of intracranial hemorrhage. Calvarium is intact. There is no evidence of cerebral edema. Skull base i s intact IMPRESSION: Mild atrophy. No acute intracranial abnormality.
[2020-05-17 20:03] VITALS: BP 127/89; PULSE 86; RESP 18
== END 2020-05-17 20:08 | disposition home or self-care (01) ==
LOC: EC 16:51
DX: R42 Dizziness and giddiness (principal); F17.200 Nicotine dependence, unspecified, uncomplicated; Z90.49 Acquired absence of other specified parts of digestive tract; Z90.710 Acquired absence of both cervix and uterus; Z90.721 Acquired absence of ovaries, unilateral; Z88.8 Allergy status to other drugs, medicaments and biological substances
CPT/HCPCS: 36415; 93005; 80053; 84484; 85025; 85610; 70450; 99284; 96365; 96366; 96375 ×3; J1200; J1100; J2765; J3475

== ENCOUNTER → 2020-06-21 | Outpatient (CLI) | payer OTHER ==
[2020-06-21 21:13] LABS: Gliadin AB IgA, Deaminated NEGATIVE (NEGATIVE); Gliadin AB IgA, Unit 0.8 U/mL; Gliadin AB IgG, Deaminated NEGATIVE (NEGATIVE)
== END | disposition home or self-care (01) ==
LOC: LABWHC1 10:36
PROVIDERS: ATTEND Nurse Practitioner
DX: K52.9 Noninfective gastroenteritis and colitis, unspecified (principal)
CPT/HCPCS: 36415; 83516; 83630; 85652; 86140; 87045; 87046; 87324; 87328; 87329

== ENCOUNTER 2020-08-02 06:40 | Day surgery (SDC) | payer OTHER ==
[2020-07-28 11:45] VITALS: BMI 20.3
[~2020-08-02 06:40] MED LIST: LACTATED RINGERS 1,000 ML IV SCH; LIDOCAINE 1% (10MG/ML) FOR IV START INTRADERMA PRN
[2020-08-02 07:19] LABS: Glucose,Whole Blood 87 mg/dL (75-99)
[2020-08-02 07:21] VITALS: TEMP 97
[2020-08-02] MEDS ORDERED: MIDAZOLAM 2 MG/2 ML VIAL ONE (07:38)
[2020-08-02] MEDS ORDERED: PROPOFOL 10 MG/ML 20 ML VIAL IV ONE (07:38)
[2020-08-02] MEDS ORDERED: LIDOCAINE 1% INJ 10MG/ML (20 ML MDV) ONE (07:38)
[2020-08-02] MEDS ORDERED: fentaNYL (PF) 50 MCG/ML 2 ML AMP ONE (07:38)
--- NOTE | 2020-08-02 08:14 | P.PCN ---
Date of Procedure: 08/02/20 Description of Procedure: Brief history: Patient is a 44-year-old female presenting for outpatient e sophagogastroduodenoscopy and colonoscopy for evaluation of dysphagia colitis. Patient reports symptoms over 10 loose bowel movements daily. No improvement with Bentyl or antidiarrheal. Stool testing as well as inflammatory markers have been negative. Patient reports globus sensation and increased esophageal dysphagia with no improvement with pantoprazole. Procedure performed: Esophagogastroduodenoscopy with biopsy Colonoscopy with biopsy Estimated blood loss: Minimal. Preoperative diagnosis: Esophageal dysphagia, colitis, non-infective gastroenteritis and colitis, altered bowel function, diarrhea Anesthesia: [facility] [place] Procedure: After informed consent was obtained from the patient was brought into the endoscopy unit and IV sedation was administered by anesthesia under continuous monitoring. Initially upper endoscopy was done. The Olympus GF 190 video endoscope was inserted into the mouth and esophagus intubated without any difficulty and was gradually advanced into the stomach and duodenum and carefully examined. The bulb and second part of the duodenum appeared normal, with biopsy to rule out celiac sprue. The scope was then withdrawn into the stomach adequately insufflated with air and upon careful examination the antrum and body, cardia and fundus appeared normal, except for some mild scattered erythema suggestive of mild gastritis with biopsies taken. The scope was then withdrawn into the esophagus. The GE junction was located at 41 cm to the incisors. It appeared regular with no erythema erosions or ulcerations, with biopsies taken of the lower esophagus and midesophagus. Rest of the esophagus appeared normal. Patient tolerated the procedure well. At this time the patient continued to remain sedation. Initial digital rectal examination was normal. Olympus CF 190 video colonoscope was then inserted into the rectum and gradually advanced to the cecum without any difficulty. Careful examination was performed as the scope was gradually being withdrawn. The prep was excellent. The cecum, ascending colon, transverse colon, descending colon, sigmoid colon and rectum appeared normal, with biopsies taken of the right and left colon as well as a normal-appearing terminal ileum. Retroflexion was performed in the rectum and no lesions were noted. Patient tolerated the procedure well. Impression: 1. Mild gastritis. Biopsies of the duodenum, antrum and body, lower esophagus and midesophagus. 2. Normal-appearing colon from rectum to cecum with normal-appearing terminal ileum. Biopsies of the terminal ileum, right colon and left colon. Internal hemorrhoids. Recommendations: Findings of this examination were discussed with the patient as well as her family. Okay to resume diet. Okay to resume medications. Await pathology from biopsies. Follow up in the GI clinic as scheduled. Continue current medical management.
[2020-08-02 08:29] VITALS: BP 113/80; PULSE 82; RESP 16
== END 2020-08-02 09:12 | disposition home or self-care (01) ==
LOC: ORWHC2ENDO 06:40
PROVIDERS: ATTEND Internal Medicine
DX: K29.50 Unspecified chronic gastritis without bleeding (principal); K20.0 Eosinophilic esophagitis; K52.9 Noninfective gastroenteritis and colitis, unspecified; K64.8 Other hemorrhoids; F17.210 Nicotine dependence, cigarettes, uncomplicated; Z90.89 Acquired absence of other organs; Z90.49 Acquired absence of other specified parts of digestive tract; Z90.710 Acquired absence of both cervix and uterus; Z98.890 Other specified postprocedural states; Z79.899 Other long term (current) drug therapy; Z88.8 Allergy status to other drugs, medicaments and biological substances
CPT/HCPCS: 88305; 45380; 43239; J2250; J2001; J3010; J2704

== ENCOUNTER → 2020-11-10 | Outpatient (CLI) | payer OTHER ==
--- NOTE | 2020-11-10 11:17 | XR ---
EXAM TYPE: LUMBAR SPINE X RAY SERIES COMPARISON: 08/25/2013 HISTORY: Pain TECHNIQUE: 4 views are submitted. FINDINGS: Alignment is anatomic. The pedicles are intact. The transverse processes are intact. There is no s pondylolysis or spondylolisthesis. Surgical clips right upper quadrant. Facet arthropathy L5-S1 with mild degenerative disc disease IMPRESSION: 1. Mild facet arthropathy and degenerative disc disease L5-S1..
== END | disposition home or self-care (01) ==
LOC: RADXRMAIN 10:18
PROVIDERS: ATTEND Family Medicine
DX: M51.37 Other intervertebral disc degeneration, lumbosacral region (principal); M47.817 Spondylosis without myelopathy or radiculopathy, lumbosacral region
CPT/HCPCS: 72110

== ENCOUNTER → 2020-11-16 | Outpatient (CLI) | payer OTHER ==
--- NOTE | 2020-11-21 13:33 | MM ---
Reason for exam: screening (asymptomatic). Last mammogram was performed 1 year and 1 month ago. History: Patient is postmenopausal. Family history of premenopausal breast cancer in mother at age 47. Benign MG stereo VAD BX LT of the left breast, October 03, 2017. Took hormonal contraceptives for 9 years beginning at age 14. Took estrogen for 1 year beginning at age 23. Took progesterone for 1 year beginning at age 23. Physical Findings: A clinical breast exam by your physician is recommended on an annual basis and results should be correlated with mammographic findings. MG Screening Mammo w CAD Bilateral CC and MLO view(s) were taken. Prior study comparison: October 26, 2019, bilateral MG 3d diag mammo w/cad [facility]. July 10, 2018, bilateral MG diagnostic mammo w CAD [facility]. The breast tissue is heterogeneously dense. This may lower the sensitivity of mammography. There are benign appearing round dystrophic calcifications bilaterally. There is no discrete abnormality. ASSESSMENT: Benign, BI-RAD 2 RECOMMENDATION: Routine screening mammogram of both breasts in 1 year.
== END | disposition home or self-care (01) ==
LOC: RADMAMWWP 06:58
PROVIDERS: ATTEND Family Medicine
DX: Z12.31 Encounter for screening mammogram for malignant neoplasm of breast (principal); Z78.0 Asymptomatic menopausal state; Z79.3 Long term (current) use of hormonal contraceptives; Z80.3 Family history of malignant neoplasm of breast
CPT/HCPCS: 77067

== ENCOUNTER → 2021-11-20 | Outpatient (CLI) | payer OTHER ==
--- NOTE | 2021-11-20 08:50 | MM ---
Reason for Exam: Screening (asymptomatic). Last screening mammogram was performed 12 month(s) ago. Patient History: Menarche at age 10. First Full-Term at age 17. Hysterectomy at age 23. Postmenopausal. Estrogen for 1 year from age 23 until age 24. Progesterone for 1 year from age 23 until age 24. Hormonal Contraceptives, starting at age 14 for 9 years. 10/03/2017, Benign Core Biopsy on the left side. Mother had breast cancer, age 47. Risk Values: Sadie 5 year model risk: 2.2%. NCI Lifetime model risk: 19.3%. Prior Study Comparison: 07/10/2018 Bilateral Diagnostic Mammogram, [facility]. 10/26/2019 Bilateral Diagnostic Mammogram, [facility]. 11/16/2020 Bilateral Screening Mammogram, [facility]. Tissue Density: The breast tissue is heterogeneously dense. This may lower the sensitivity of mammography. Findings: Analyzed By CAD. There is no suspicious group of microcalcifications or new suspicious mass in either breast. Benign calcifications bilaterally. No significant change from prior exams. Overall Assessment: Benign, BI-RAD 2 Management: Screening Mammogram of both breasts in 1 year. A clinical breast exam by your physician is recommended on an annual basis and results should be correlated with mammographic findings. Electronically signed and approved by: Teo Martinez D.O.
== END | disposition home or self-care (01) ==
LOC: RADMAMWWP 06:59
PROVIDERS: ATTEND Family Medicine
DX: Z12.31 Encounter for screening mammogram for malignant neoplasm of breast (principal); Z78.0 Asymptomatic menopausal state; Z80.3 Family history of malignant neoplasm of breast
CPT/HCPCS: 77067

== ENCOUNTER 2022-07-28 09:04 | Emergency (ER) | payer OTHER ==
[2022-07-28 09:11] VITALS: TEMP 98
[2022-07-28] MEDS ORDERED: HYDROmorphone 0.5 MG/0.5 ML SYRINGE IVP STA (10:11)
--- NOTE | 2022-07-28 10:14 | ED ---
General Adult HPI - General Chief complaint: Neuro Symptoms/Deficit Stated complaint: Blurred vision Time Seen by Provider: 07/28/22 09:45 Source: patient, RN notes reviewed Mode of arrival: ambulatory Limitations: no limitations - History of Present Illness Initial comments: Patient is a pleasant 46-year-old female presenting to the emergency Department with blurred vision. A patel leg down for naps yesterday and woke up around 5 PM. Patient has had blurred vision since that time. Patient does not feel comfortable with driving. Patient does have chronic neck pain, unchanged. Patient did go for therapy yesterday. No headache. No confusion. No weakness. No history of similar symptoms previously. Both eyes are affected equally. - Related Data Home Medications Medication Instructions Recorded Confirmed Amitriptyline HCl [Elavil] 75 tab PO HS 09/25/17 08/02/20 Topiramate [Topamax] 100 mg PO HS 09/25/17 08/02/20 ALPRAZolam [Xanax] 0.5 mg PO BID PRN 05/17/20 08/02/20 Dicyclomine [Bentyl] 20 mg PO TID PRN 05/17/20 08/02/20 HYDROcodone/APAP 5-325MG [[place] 1 tab PO Q8H PRN 05/17/20 08/02/20 5-325] Clarithromycin [Biaxin] 500 mg PO BID 07/28/20 08/02/20 Previous Rx's Medication Instructions Recorded Pantoprazole Sodium [Protonix] 40 mg PO DAILY #30 tablet. 05/12/19 Meclizine [Antivert] 25 mg PO TID PRN #20 tab 05/17/20 Allergies Allergy/AdvReac Type Severity Reaction Status Date / Time bupropion [From Wellbutrin] Allergy Rash/Hives Verified 07/28/22 09:11 ondansetron [From Zofran] Allergy Rash/Hives Verified 07/28/22 09:11 Review of Systems ROS Statement: Those systems with pertinent positive or pertinent negative responses have been documented in the HPI. ROS Other: All systems not noted in ROS Statement are negative. Constitutional: Denies: fever Eyes: Reports: as per HPI. Denies: eye pain, eye discharge ENT: Denies: ear pain Respiratory: Denies: cough Cardiovascular: Denies: chest pain Endocrine: Denies: fatigue Gastrointestinal: Denies: abdominal pain Genitourinary: Denies: dysuria Musculoskeletal: Denies: back pain Skin: Denies: rash Neurological: Denies: headache, weakness, numbness, paresthesias, confusion, vertigo Past Medical History Past Medical History: GERD/Reflux, Pneumonia Additional Past Medical History / Comment(s): recent URI, states tested negative for Covid, abdominal pain and diarrhea, Hypotension, migraines, IBS, bronchitis, sinus problems/seasonal allergies. History of Any Multi-Drug Resistant Organisms: None Reported Past Surgical History: Appendectomy, Cholecystectomy, Hysterectomy, Orthopedic Surgery, Tonsillectomy Additional Past Surgical History / Comment(s): Laryngoscopy to remove tumor from neck, Cervical surgery, L/R wrist ganglion cyst removals, benign skin lesions removed, laparoscopic surgeries for ovarian cyst removals, diagnostic lap with R oophorectomy. Past Anesthesia/Blood Transfusion Reactions: Previous Problems w/ Anesthesia Additional Past Anesthesia/Blood Transfusion Reaction / Comment(s): sometimes takes long "to go under" also states she "wakes up during sx" Past Psychological History: No Psychological Hx Reported Smoking Status: Current every day smoker Past Alcohol Use History: Occasional Past Drug Use History: Marijuana - Past Family History Mother Family Medical History: Cancer Additional Family Medical History / Comment(s): Breast cancer. Mother is living. Son(s) Family Medical History: Cancer Additional Family Medical History / Comment(s): hodgkins lymphoma Father Family Medical History: No Reported History Additional Family Medical History / Comment(s): Father is healthy General Exam Limitations: no limitations General appearance: alert, in no apparent distress Head exam: Present: atraumatic, normocephalic Eye exam: Present: normal appearance, PERRL, EOMI Expanded Eyelids: Normal Inspection: Bilateral Pupils: Regular, Round: Bilateral Sclera/Conjunctival: Normal Inspection: Bilateral Posterior chamber: Normal Inspection: Bilateral ENT exam: Present: normal exam Neck exam: Present: normal inspection, tenderness (Mild midcervical tenderness) Respiratory exam: Present: normal lung sounds bilaterally Cardiovascular Exam: Present: tachycardia Expanded Peripheral pulses: 2+: Radial (R), Radial (L) GI/Abdominal exam: Present: soft. Absent: tenderness Extremities exam: Present: normal inspection. Absent: pedal edema, calf tenderness Neurological exam: Present: alert, oriented X3, CN II-XII intact. Absent: motor sensory deficit Expanded Neurological exam: Present: protecting the airway Speech: Present: fluid speech Cranial nerves: EOM's Intact: Normal Sensory exam: Upper Extremity Light Touch: Normal, Lower Extremity Light Touch: Normal Motor strength exam: RUE: 5, LUE: 5, RLE: 5, LLE: 5 Eye Response: (4) open spontaneously Motor Response: (6) obeys commands Verbal Response: (5) oriented Psychiatric exam: Present: normal affect, normal mood Skin exam: Present: normal color Course Vital Signs 07/28/22 07/28/22 07/28/22 09:07 10:48 12:59 Temperature 98 F Pulse Rate 130 H 89 92 Respiratory 18 16 16 Rate Blood Pressure 113/80 122/92 117/92 O2 Sat by Pulse 100 99 99 Oximetry EKG Findings - EKG Results: EKG: interpreted by ERMD (Left axis.), sinus rhythm, normal QRS, normal ST/T EKG shows: tachycardia Medical Decision Making - Medical Decision Making Was pt. sent in by a medical professional or institution (, PA, HOME AND FAMILY LIVING PROFESSOR, urgent care, hospital, or [facility]...) When possible be specific @ -No Did you speak to anyone other than the patient for history (EMS, parent, family, police, friend...)? What history was obtained from this source @ -No Did you review nursing and triage notes (agree or disagree)? Why? @ -I reviewed and agree with nursing and triage notes Were old charts reviewed (outside hosp., previous admission, EMS record, old EKG, old radiological studies, urgent care reports/EKG's, [facility] records)? Report findings @ -No old charts were reviewed Differential Diagnosis (chest pain, altered mental status, abdominal pain women, abdominal pain men, vaginal bleeding, weakness, fever, dyspnea, syncope, headache, dizziness, GI bleed, back pain, seizure, CVA, palpatations, mental health)? @ -not applicable EKG interpreted by me (3pts min.). @ -As above X-rays interpreted by me (1pt min.). @ -None done CT interpreted by me (1pt min.). @ -Reports reviewed U/S interpreted by me (1pt. min.). @ -None done What testing was considered but not performed or refused? (CT, X-rays, U/S, labs)? Why? @ -None What meds were considered but not given or refused? Why? @ -None Did you discuss the management of the patient with other professionals (professionals i.e. , PA, HOME AND FAMILY LIVING PROFESSOR, lab, RT, psych nurse, home health care social worker, county sheriff, teacher, bank secrecy act officer, family independence case manager)? Give summary @ -Case was discussed with ophthalmology, Dr. sepulveda who is comfortable with discharge the patient and will follow-up with them in the office Saturday morning at 8 or 9 AM. Was smoking cessation discussed for >3mins.? @ -No Was critical care preformed (if so, how long)? @ -No Were there social determinants of health that impacted care today? How? (Homelessness, low income, unemployed, alcoholism, drug addiction, tra nsportation, low edu. Level, literacy, decrease access to med. care, senior care, rehab)? @ -No Was there de-escalation of care discussed even if they declined (Discuss DNR or withdrawal of care, Hospice)? DNR status @ -No What co-morbidities impacted this encounter? (DM, HTN, Smoking, COPD, CAD, Cancer, CVA, ARF, Chemo, Hep., AIDS, mental health diagnosis, sleep apnea, morbid obesity)? @ -None Was patient admitted / discharged? Hospital course, mention meds given and route, prescriptions, significant lab abnormalities, going to OR and other pertinent info. @ -Patient reevaluated and updated. Corrected visual acuity 20/25 and 20/30 Undiagnosed new problem with uncertain prognosis? @ -No Drug Therapy requiring intensive monitoring for toxicity (Heparin, Nitro, Insulin, Cardizem)? @ -No Were any procedures done? @ -No Diagnosis/symptom? @ -Blurred vision Acute, or Chronic, or Acute on Chronic? @ -Acute Uncomplicated (without systemic symptoms) or Complicated (systemic symptoms)? @ -default Side effects of treatment? @ -No Exacerbation, Progression, or Severe Exacerbation? @ -No Poses a threat to life or bodily function? How? (Chest pain, [place], [place], pneumonia, PE, COPD, DKA, ARF, appy, cholecystitis, CVA, Diverticulitis, Homicidal, Harleen cidal, threat to staff... and all critical care pts) @ -No - Lab Data Result diagrams: 07/28/22 10:09 07/28/22 10:09 Lab Results 07/28/22 07/28/22 07/28/22 Range/Units 10:09 10:09 10:09 WBC 11.0 H (3.8-10.6) k/uL RBC 5.18 (3.80-5.40) m/uL Hgb 15.7 (11.4-16.0) gm/dL Hct 45.8 (34.0-46.0) % MCV 88.4 (80.0-100.0) fL MCH 30.4 (25.0-35.0) pg MCHC 34.4 (31.0-37.0) g/dL RDW 12.0 (11.5-15.5) % Plt Count 236 (150-450) k/uL MPV 7.7 Neutrophils % 77 % Lymphocytes % 16 % Monocytes % 3 % Eosinophils % 3 % Basophils % 0 % Neutrophils # 8.4 H (1.3-7.7) k/uL Lymphocytes # 1.7 (1.0-4.8) k/uL Monocytes # 0.4 (0-1.0) k/uL Eosinophils # 0.3 (0-0.7) k/uL Basophils # 0.0 (0-0.2) k/uL Sodium 141 (137-145) mmol/L Potassium 3.3 L (3.5-5.1) mmol/L Chloride 105 (98-107) mmol/L Carbon Dioxide 28 (22-30) mmol/L Anion Gap 8 mmol/L BUN 10 (7-17) mg/dL Creatinine 0.73 (0.52-1.04) mg/dL Est GFR (CKD-EPI)AfAm >90 (>60 ml/min/1.73 sqM) Est GFR (CKD-EPI)NonAf >90 (>60 ml/min/1.73 sqM) Glucose 59 L (74-99) mg/dL POC Glucose (mg/dL) (70-110) mg/dL POC Glu Chief Credit Officer ID Calcium 9.4 (8.4-10.2) mg/dL Total Bilirubin 0.4 (0.2-1.3) mg/dL AST 19 (14-36) U/L ALT 16 (4-34) U/L Alkaline Phosphatase 96 (38-126) U/L Total Protein 7.1 (6.3-8.2) g/dL Albumin 4.2 (3.5-5.0) g/dL Urine Color Yellow Urine Appearance Clear (Clear) Urine pH 5.5 (5.0-8.0) Ur Specific [place] 1.010 (1.001-1.035) Urine Protein Negative (Negative) Urine Glucose (UA) Negative (Negative) Urine Ketones Negative (Negative) Urine Blood Small H (Negative) Urine Nitrite Negative (Negative) Urine Bilirubin Negative (Negative) Urine Urobilinogen <2.0 (<2.0) mg/dL Ur Leukocyte Esterase Negative (Negative) Urine RBC 2 (0-5) /hpf Urine WBC 2 (0-5) /hpf Ur Squamous Epith Cells <1 (0-4) /hpf Urine Mucus Few H (None) /hpf 07/28/22 Range/Units 12:58 WBC (3.8-10.6) k/uL RBC (3.80-5.40) m/uL Hgb (11.4-16.0) gm/dL Hct (34.0-46.0) % MCV (80.0-100.0) fL MCH (25.0-35.0) pg MCHC (31.0-37.0) g/dL RDW (11.5-15.5) % Plt Count (150-450) k/uL MPV Neutrophils % % Lymphocytes % % Monocytes % % Eosinophils % % Basophils % % Neutrophils # (1.3-7.7) k/uL Lymphocytes # (1.0-4.8) k/uL Monocytes # (0-1.0) k/uL Eosinophils # (0-0.7) k/uL Basophils # (0-0.2) k/uL Sodium (137-145) mmol/L Potassium (3.5-5.1) mmol/L Chloride (98-107) mmol/L Carbon Dioxide (22-30) mmol/L Anion Gap mmol/L BUN (7-17) mg/dL Creatinine (0.52-1.04) mg/dL Est GFR (CKD-EPI)AfAm (>60 ml/min/1.73 sqM) Est GFR (CKD-EPI)NonAf (>60 ml/min/1.73 sqM) Glucose (74-99) mg/dL POC Glucose (mg/dL) 96 (70-110) mg/dL POC Glu Chief Credit Officer ID Amber Arzate Calcium (8.4-10.2) mg/dL Total Bilirubin (0.2-1.3) mg/dL AST (14-36) U/L ALT (4-34) U/L Alkaline Phosphatase (38-126) U/L Total Protein (6.3-8.2) g/dL Albumin (3.5-5.0) g/dL Urine Color Urine Appearance (Clear) Urine pH (5.0-8.0) Ur Specific [place] (1.001-1.035) Urine Protein (Negative) Urine Glucose (UA) (Negative) Urine Ketones (Negative) Urine Blood (Negative) Urine Nitrite (Negative) Urine Bilirubin (Negative) Urine Urobilinogen (<2.0) mg/dL Ur Leukocyte Esterase (Negative) Urine RBC (0-5) /hpf Urine WBC (0-5) /hpf Ur Squamous Epith Cells (0-4) /hpf Urine Mucus (None) /hpf Disposition Clinical Impression: Blurry vision Disposition: HOME SELF-CARE Condition: Stable Instructions (If sedation given, give patient instructions): Blurred Vision (ED) Additional Instructions: Please do follow-up with Dr. Sepulveda Saturday morning at 8 AM. Return for worsening vision, headache, weakness or confusion, speech problems, worsening symptoms or any other concerns. Is patient prescribed a controlled substance at d/c from ED?: No Referrals: Diapk Winston Jr, DO [Primary Care Provider] - 1-2 days Sue Sepulveda MD [STAFF PHYSICIAN] - 1-2 days Time of Disposition: 13:05
[2022-07-28 10:41] LABS: Basophils % (A) 0 %; Eosinophils # (A) 0.3 k/uL (0-0.7); Eosinophils % (A) 3 %; HCT 45.8 % (34.0-46.0); HGB 15.7 gm/dL (11.4-16.0); Lymphocytes # (A) 1.7 k/uL (1.0-4.8); Lymphocytes % (A) 16 %; MCH 30.4 pg (25.0-35.0); MCHC 34.4 g/dL (31.0-37.0); MCV 88.4 fL (80.0-100.0); Mean Platelet Volume 7.7; Monocytes # (A) 0.4 k/uL (0-1.0); Monocytes % (A) 3 %; Neutrophils # (A) 8.4 k/uL (1.3-7.7); Neutrophils % (A) 77 %; Platelet Count 236 k/uL (150-450); RBC 5.18 m/uL (3.80-5.40)
--- NOTE | 2022-07-28 10:44 | CT ---
EXAMINATION TYPE: CT brain wo con CT DLP: 1099.8 mGycm, Automated exposure control for dose reduction was used. DATE OF EXAM: 07/28/2022 10:38 AM COMPARISON: Prior CT Brain from . 05/17/2020 CLINICAL INDICATION:Female, 46 years old with history of neck pain, blurry vision, Blurred vision and back pain TECHNIQUE: Brain: Multiple axial CT images of the brain were obtained without IV contrast. Coronal and sagittal reformats reviewed. FINDINGS: Brain: Extra-axial spaces: No abnormal extra-axial fluid collections. Ventricular system: Within normal limits Cerebral parenchyma: No acute intraparenchymal hemorrhage or mass effect. The soria-white junction is well differentiated. Cerebellum: Unremarkable. Mass effect: No evidence of midline shift. Intracranial vasculature: unremarkable Soft tissues: Normal. Calvarium/osseous structures: No depressed skull fracture. Paranasal sinuses and mastoid air cells: Clear Visualized orbits: Orbital contents are intact. IMPRESSION: No acute intracranial process or significant change from prior.
[2022-07-28 10:48] VITALS: RESP 16
[2022-07-28 10:51] LABS: ALT 16 U/L (4-34); AST 19 U/L (14-36); African American GFR (CKD) >90 (>60 ml/min/1.73 sqM); Albumin 4.2 g/dL (3.5-5.0); Alkaline Phosphatase 96 U/L (38-126); Anion Gap 8 mmol/L; Blood Urea Nitrogen 10 mg/dL (7-17); Calcium 9.4 mg/dL (8.4-10.2); Carbon Dioxide 28 mmol/L (22-30); Chloride 105 mmol/L (98-107); Glucose 59 mg/dL (74-99); Non-African American GFR(CKD) >90 (>60 ml/min/1.73 sqM); Potassium 3.3 mmol/L (3.5-5.1); Sodium 141 mmol/L (137-145); Total Bilirubin 0.4 mg/dL (0.2-1.3); Total Protein 7.1 g/dL (6.3-8.2)
[2022-07-28 11:04] LABS: Appearance,Urine Clear (Clear); Bilirubin,Urine Negative (Negative); Blood,Urine Small (Negative); Color,Urine Yellow; Glucose,Urine (UA) Negative (Negative); Ketones,Urine Negative (Negative); Leukocyte Esterase,Urine Negative (Negative); Mucus,Urine Few /hpf; Nitrite,Urine Negative (Negative); PH, Urine 5.5 (5.0-8.0); Protein,Urine Negative (Negative); RBC,Urine 2 /hpf (0-5); Squamous Epithelial Cell,Urine <1 /hpf (0-4); Urobilinogen,Urine <2.0 mg/dL (<2.0); WBC,Urine 2 /hpf (0-5)
--- NOTE | 2022-07-28 11:15 | CT ---
EXAMINATION TYPE: CT angio head neck CT DLP: 353.4 mGycm, Automated exposure control for dose reduction was used. DATE OF EXAM: 07/28/2022 11:09 AM COMPARISON: CT 07/28/2022, 05/17/2020. CLINICAL INDICATION:Female, 46 years old with history of neck pain, blurry vision; PHH, Neck pain and blurry vision TECHNIQUE: Axially acquired helical CT angiogram of the head and neck was obtained with contrast util izing 65 cc of Isovue-370 administered intravenously. Axial images are supplemented with 3D reconstru ctions which were post-processed at an independent workstation. NASCET criteria used. FINDINGS: CTA HEAD: No evidence of acute intracranial hemorrhage, mass effect, or midline shift. The ventricles, sulci, a nd cisterns are unremarkable. The visualized portions of the internal carotid arteries, middle cerebral arteries, anterior cerebral arteries, and posterior cerebral arteries are patent. The basilar and vertebral arteries are patent. CTA NECK: Right Carotid System: The common carotid artery and external carotid artery are patent. The carotid bifurcation demonstrate s no evidence of hemodynamically significant stenosis. The remaining portions of the internal carotid artery demonstrate normal size without significant narrowing. Left Carotid System: The common carotid artery and external carotid artery are patent. The carotid bifurcation demonstrate s no evidence of hemodynamically significant stenosis. The remaining portions of the internal carotid artery demonstrate normal size without significant narrowing. Vertebral arteries are patent without evidence hemodynamically significant stenosis. There is a three-vessel aortic arch. The origins of the great vessels are patent. No evidence of hemo dynamically significant stenosis. Apical pleural-parenchymal scarring. Mild centrilobular emphysematous changes. IMPRESSION: 1. No evidence of dissection of the cervical internal carotid arteries or vertebral arteries or any e vidence of significant stenosis at the carotid bifurcations. 2. No evidence of high-grade stenosis or intracranial aneurysm.
[2022-07-28] MEDS ORDERED: POTASSIUM CHLORIDE ER 20 MEQ TAB.ER PO STA (12:13)
[2022-07-28 13:00] VITALS: BP 117/92; PULSE 92
[2022-07-28 13:00] LABS: Glucose,Whole Blood 96 mg/dL (70-110)
== END 2022-07-28 13:12 | disposition home or self-care (01) ==
LOC: EC 09:04
DX: H53.8 Other visual disturbances (principal); F17.200 Nicotine dependence, unspecified, uncomplicated; F12.90 Cannabis use, unspecified, uncomplicated; Z88.8 Allergy status to other drugs, medicaments and biological substances
CPT/HCPCS: 99284 ×2; 96374 ×2; 36415; 93005; 80053; 85025; 81001; 70496; 70450; 70498; J1170; Q9967

== ENCOUNTER → 2022-10-01 | Outpatient (CLI) | payer OTHER ==
--- NOTE | 2022-10-01 20:30 | MR ---
EXAMINATION TYPE: MR thoracic spine wo con DATE OF EXAM: 10/01/2022 5:47 PM COMPARISON: No priors. INDICATION: Patient age:Female; 47 years old; Reason for study: M51.24; . Mid back and neck pain into Rt arm TECHNIQUE: Multi planar, multi sequence imaging was performed utilizing: T1-weighted, short-tau inver pierre recovery and T2-weighted of the thoracic spine. The patient was not given Gadolinium. IV Contrast: None FINDINGS: The thoracic vertebral bodies have preserved heights and alignment. The osseous structure have normal signal intensity. No abnormal bony edema on inversion recovery sequences. Thoracic spinal cord appea rs unremarkable. There is no evidence of extradural defects or central spinal canal narrowing at any thoracic vertebral body level. Intervertebral discs demonstrate normal signal intensity. IMPRESSION: Normal MRI of the thoracic spine.
== END | disposition home or self-care (01) ==
LOC: RADMRIMAIN 15:56
PROVIDERS: ATTEND Orthopaedic Surgery
DX: M51.24 Other intervertebral disc displacement, thoracic region (principal)
CPT/HCPCS: 72146

== ENCOUNTER → 2023-01-21 | Outpatient (CLI) | payer OTHER ==
--- NOTE | 2023-01-21 09:14 | USB ---
Reason for Exam: Clinical finding. Patient History: Menarche at age 10. First Full-Term at age 17. Hysterectomy at age 23. Postmenopausal. Estrogen for 1 year from age 23 until age 24. Progesterone for 1 year from age 23 until age 24. Hormonal Contraceptives, starting at age 14 for 9 years. 10/03/2017, Benign Core Biopsy on the left side. Mother had breast cancer, age 47. Risk Values: Sadie 5 year model risk: 2.2%. NCI Lifetime model risk: 19.0%. Prior Study Comparison: 11/16/2020 Bilateral Screening Mammogram, [facility]. 11/20/2021 Bilateral MG screening mammo w CAD, [facility]. 01/07/2023 Bilateral MG screening mammo w CAD, [facility]. Findings: The area of palpable concern of the right breast and the axilla of the right breast were scanned. Technique utilized:US breast workup limited RT Image; Ultrasound imaging of: Area of concern. No finding to correlate with palpable abnormality. No evidence for organizing fluid collection or mass. Overall Assessment: Negative, BI-RAD 1 Management: Screening Mammogram of both breasts in 1 year. A clinical breast exam by your physician is recommended on an annual basis and results should be correlated with mammographic findings. This exam should not preclude additional follow-up of suspicious palpable abnormalities. Results were given to the patient verbally at the time of exam. Electronically signed and approved by: Lamonte Walton DO
== END | disposition home or self-care (01) ==
LOC: RADUSWWP 08:39
PROVIDERS: ATTEND Family Medicine
DX: R92.8 Other abnormal and inconclusive findings on diagnostic imaging of breast (principal); Z78.0 Asymptomatic menopausal state; Z80.3 Family history of malignant neoplasm of breast

== ENCOUNTER → 2023-05-29 | Outpatient (CLI) | payer OTHER ==
[2023-05-29 08:33] VITALS: BP 118/87; PULSE 105; RESP 16; TEMP 97.1
--- NOTE | 2023-05-29 12:46 | XR ---
EXAMINATION TYPE: XR shoulder complete RT DATE OF EXAM: 05/29/2023 11:55 AM CLINICAL INDICATION:Female, 47 years old with history of [id number]; COMPARISON: 12/04/2021 TECHNIQUE: XR shoulder complete RT; examined in AP, internally rotated and scapular Y projections. FINDINGS: No evidence of acute osseous pathology, joint dislocation, or soft tissue swelling. The remaining po rtions of the visualized chest are unremarkable. IMPRESSION: No acute osseous pathology.
--- NOTE | 2023-05-29 14:27 | P.PAINPG ---
PQRS Measure Charge Sheet Comment: HISTORY OF PRESENT ILLNESS: A 47 yr old female as a referral from Kayleigh Stahl [facility] presents today w severe and chronic neck & R shoulder pain x 1 yr secondary to post laminectomy syndrome and R shoulder DJD for evaluation. Pt states pain level is provoked at 10 /10 in intensity, constant, localized in the lower cervical spine, predominantly axial, burning in character w occasional shooting pain towards the R shoulder and RUE. Pain is provoked by lifting, flexion. Pain is alleviated by PT x 8 wks which ended in Oct 2022, massage therapy x 1 yr every 2 mo w last visit in Jan 2023, chiropractic treatments q3wks which ended in 2020, physician guided exercises every morning since Jan 2023 but have been provoking pain since Apr 2023, heat, medications (Neurontin, Flexeril, Ibu, Mobic), topical, repositioning and rest. Cervical disability score at 19. PMH: OA, GERD, IBS, Migraine DEGROOT, Anxiety PSH: Appendectomy, Cholecystectomy, C Section x1, Ovarian Cystectomy, R Oophorectomy, Hysterectomy, BL Tubal Ligation, L Wrist Ganglion Cystectomy, Laryngoscopy, Tonsillectomy, EGD/ Colonoscopy (2020), Cervical Surgery, Knee Surgery, BL CTR SH: Daily tobacco use, Occasional ETOH use, No illicit drug use FH: Mo- Breast CA. Fa- No Reported History. Son- Hodgkins Lymphoma All: See list Meds: See list REVIEW OF ORGAN SYSTEMS: CONSTITUTIONAL: No fevers or chills. No recent weight loss. NEUROLOGICAL: + numbness and tingling along the distal extremities. No seizure disorders or headaches. MUSCULOSKELETAL: + pain PSYCHIATRIC: Denies current depression or suicidal thoughts. Physical Examinations : Constitutional : Cooperative , not in acute distress . Neurologic : Cranial nerve II to XII intact. No focal neurological deficits. Psychiatric : alert & oriented x 3. Matching mood & appropriate affect. Judgment & insight intact. Musculoskeletal : Cervical Spine R AC/ GH joint line TTP Motor strength in the deltoid and biceps: Normal right side. Normal Left side Motor strength biceps and the wrist extensors: Normal right side . Normal left side Motor strength in the triceps muscle: Normal right side. Normal left side Deep tendon reflexes: Normal at the biceps. Normal at Brachioradialis. Normal at triceps Vertebral body tenderness to deep palpation over Cervical facet loading test: positive bilaterally Spurling test: positive bilaterally Neck distraction test: positive bilaterally Kalen sign: positive bilaterally Lumbar spine Motor strength lower extremities ,thigh and legs 5/5 Right side , 5/5 Left side Deep tendon reflexes : Normal Knee Jerk. Normal Ankle Jerk Vertebral body tenderness over Chung Test positive Lumbar facet Loading Test: positive Right / positive Left Range of motion of the lumbar spine Flexion 30 degrees, extension 10 degrees Straight Leg Raise test: Left/ Right positive at degrees Crys test: positive right / positive left. Severe tenderness over the Sacroiliac joint on the Right / Left sides Gaenslen test: positive bilaterally Seated flexion test: positive bilaterally. Sacral spine : Severe tenderness over the Sacroiliac joint: right side / left side Range of motion: Flexion of the lumbar spine <60 degrees Range of motion: Extension of the lumbar spine <20 degrees Gaenslen's Test positive Crys test: positive right side / left side Thigh Thrust Test Sacral Thrust Test Imaging: MRI noncontrast of the cervical spine from 08/17/22 reviewed MRI noncontrast thoracic spine from 10/01/22 reviewed Assessment/ Plan : R Shoulder DJD Recommendation of R shoulder x ray M19.19 May need additional testing if indicated. All questions answered. I have spent greater than 30 minutes on patient care today. Dr Salmon was available by phone for the evaluation of this patient. The time was used to review the medical records including relevant urine studies and Prescription history (MAPs), review of the available imaging, evaluation and examination of the patient, coordination of care with the medical staff and if applicable referring physicians, as well as creation of the medical record PQRS Narrative: Smoking Status Current every day smoker Home Medications: Ambulatory Orders Amitriptyline HCl [Elavil] 75 tab PO HS 09/25/17 Topiramate [Topamax] 100 mg PO HS 09/25/17 Pantoprazole Sodium [Protonix] 40 mg PO DAILY #30 tablet. 05/12/19 ALPRAZolam [Xanax] 0.5 mg PO BID PRN 05/17/20 Dicyclomine [Bentyl] 20 mg PO TID PRN 05/17/20 HYDROcodone/APAP 5-325MG [[place] 5-325] 1 tab PO Q8H PRN 05/17/20 Meclizine [Antivert] 25 mg PO TID PRN #20 tab 05/17/20 Clarithromycin [Biaxin] 500 mg PO BID 07/28/20 Cyclobenzaprine [Flexeril] 10 mg PO TID 05/29/23 Gabapentin [Neurontin] 400 mg PO BID 05/29/23 Controlled Substance Measures - Controlled Substance Measures Is patient prescribed a controlled substance at discharge?: No
== END ==
LOC: PNWHC3 07:51
PROVIDERS: ATTEND Specialist
DX: M19.011 Primary osteoarthritis, right shoulder (principal); M54.2 Cervicalgia; K21.9 Gastro-esophageal reflux disease without esophagitis; K58.9 Irritable bowel syndrome, unspecified; G43.909 Migraine, unspecified, not intractable, without status migrainosus; F41.9 Anxiety disorder, unspecified; F17.200 Nicotine dependence, unspecified, uncomplicated; Z98.51 Tubal ligation status; Z88.8 Allergy status to other drugs, medicaments and biological substances
CPT/HCPCS: 99211

== ENCOUNTER → 2023-06-12 | Outpatient (CLI) | payer OTHER ==
--- NOTE | 2023-06-13 14:08 | MR ---
EXAMINATION TYPE: MR shoulder RT wo con DATE OF EXAM: 06/12/2023 COMPARISON: Right shoulder x-ray May 29, 2023 HISTORY: Right shoulder/neck/back pain for 1+ years. TECHNIQUE: Multiplanar, multisequence imaging of the right shoulder is performed without contrast. FINDINGS: Rotator Cuff: Supraspinatus and infraspinatus tendons intact. Some adjacent bursal surface fluid is p resent. Subscapularis tendon is intact. Acromioclavicular Joint: Mild to moderate narrowing. No significant spurring. Distal acromion morphol ogy unremarkable. Glenohumeral Joint: No significant effusion. No significant spurring. Labrum: The labrum appears grossly intact given limitation of non-arthrogram study. Biceps Tendon: The long head of biceps is in normal location within bicipital groove. Increased signa l intracapsular portion is present for reference sagittal images 16 through 18. Bone marrow signal: Some heterogeneity is seen. No suspicious increased T2 signal or edema. Other: No additional significant abnormality is appreciated. IMPRESSION: 1. Mild to moderate subdeltoid/subacromial bursitis. No significant rotator cuff tear. 2. Tendinosis/partial tearing of the intracapsular portion long head of biceps tendon.
== END | disposition home or self-care (01) ==
LOC: RADMRIMAIN 18:39
PROVIDERS: ATTEND Specialist
DX: M67.813 Other specified disorders of tendon, right shoulder (principal); M19.011 Primary osteoarthritis, right shoulder; M75.51 Bursitis of right shoulder; M54.12 Radiculopathy, cervical region

== ENCOUNTER → 2023-06-24 | Outpatient (CLI) | payer OTHER ==
[2023-06-24 08:13] VITALS: BP 113/79; PULSE 110; RESP 16; TEMP 97.1
--- NOTE | 2023-06-24 14:19 | P.PAINPG ---
PQRS Measure Charge Sheet Comment: HISTORY OF PRESENT ILLNESS: A 47 yr old female presents today w severe and chronic neck & R shoulder pain x 1 yr secondary to post laminectomy syndrome and R shoulder DJD for evaluation of MRI results. 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 Pt states pain level is provoked at 9 /10 in intensity, constant, localized in the lower cervical spine, predominantly axial, burning in character w occasional shooting pain towards the R shoulder and RUE. Pain is provoked by lifting & abduction of RUE. Pain is alleviated by PT x 8 wks which ended in Oct 2022, massage therapy x 1 yr every 2 mo w last visit in Jan 2023, chiropractic treatments q3wks which ended in 2020, physician guided exercises every morning since Jan 2023 but have been provoking pain since Apr 2023, heat, medications, topical, repositioning and rest. Cervical disability score at 19. Interventional procedures include Medications include Neurontin, Flexeril, Ibu, Mobic REVIEW OF ORGAN SYSTEMS: CONSTITUTIONAL: No fevers or chills. No recent weight loss. NEUROLOGICAL: + numbness and tingling along the distal extremities. No seizure disorders or headaches. MUSCULOSKELETAL: + pain PSYCHIATRIC: Denies current depression or suicidal thoughts. Physical Examinations : Constitutional : Cooperative , not in acute distress . Neurologic : Cranial nerve II to XII intact. No focal neurological deficits. Psychiatric : alert & oriented x 3. Matching mood & appropriate affect. Judgment & insight intact. Musculoskeletal : Cervical Spine R AC/ GH joint line TTP Motor strength in the deltoid and biceps: Normal right side. Normal Left side Motor strength biceps and the wrist extensors: Normal right side . Normal left side Motor strength in the triceps muscle: Normal right side. Normal left side Deep tendon reflexes: Normal at the biceps. Normal at Brachioradialis. Normal at triceps Vertebral body tenderness to deep palpation over Cervical facet loading test: positive bilaterally Spurling test: positive bilaterally Neck distraction test: positive bilaterally Kalen sign: positive bilaterally Lumbar spine Motor strength lower extremities ,thigh and legs 5/5 Right side , 5/5 Left side Deep tendon reflexes : Normal Knee Jerk. Normal Ankle Jerk Vertebral body tenderness over Chung Test positive Lumbar facet Loading Test: positive Right / positive Left Range of motion of the lumbar spine Flexion 30 degrees, extension 10 degrees Straight Leg Raise test: Left/ Right positive at degrees Crys test: positive right / positive left. Severe tenderness over the Sacroiliac joint on the Right / Left sides Gaenslen test: positive bilaterally Seated flexion test: positive bilaterally. Sacral spine : Severe tenderness over the Sacroiliac joint: right side / left side Range of motion: Flexion of the lumbar spine <60 degrees Range of motion: Extension of the l umbar spine <20 degrees Gaenslen's Test positive Crys test: positive right side / left side Thigh Thrust Test Sacral Thrust Test Imaging: MRI noncontrast of the cervical spine from 08/17/22 reviewed MRI noncontrast thoracic spine from 10/01/22 reviewed MRI noncontrast of the R shoulder from 05/23/23 reviewed Assessment/ Plan : R Shoulder DJD, R Shoulder Bursitis, R Shoulder Tendinosis Recommendation of R shoulder bursa joint injection. May need a series of injections for optimal pain relief. Risks, benefits of procedure discussed and patient verbalized understanding. All questions answered. I have spent greater than 30 minutes on patient care today. Dr Salmon was available by phone for the evaluation of this patient. The time was used to review the medical records including relevant urine studies and Prescription history (MAPs), review of the available imaging, evaluation and examination of the patient, coordination of care with the medical staff and if applicable referring physicians, as well as creation of the medical record PQRS Narrative: Smoking Status Current every day smoker Hx Alcohol Use (MH) No Home Medications: Ambulatory Orders Amitriptyline HCl [Elavil] 75 tab PO HS 09/25/17 Topiramate [Topamax] 100 mg PO HS 09/25/17 Pantoprazole Sodium [Protonix] 40 mg PO DAILY #30 tablet. 05/12/19 ALPRAZolam [Xanax] 0.5 mg PO BID PRN 05/17/20 Dicyclomine [Bentyl] 20 mg PO TID PRN 05/17/20 HYDROcodone/APAP 5-325MG [[place] 5-325] 1 tab PO Q8H PRN 05/17/20 Meclizine [Antivert] 25 mg PO TID PRN #20 tab 05/17/20 Clarithromycin [Biaxin] 500 mg PO BID 07/28/20 Cyclobenzaprine [Flexeril] 10 mg PO TID 05/29/23 Gabapentin [Neurontin] 400 mg PO BID 05/29/23 Controlled Substance Measures - Controlled Substance Measures Is patient prescribed a controlled substance at discharge?: No
== END ==
LOC: PNWHC3 07:29
PROVIDERS: ATTEND Specialist
DX: M25.511 Pain in right shoulder (principal); M19.011 Primary osteoarthritis, right shoulder; M75.51 Bursitis of right shoulder; M75.21 Bicipital tendinitis, right shoulder; F17.200 Nicotine dependence, unspecified, uncomplicated; Z88.5 Allergy status to narcotic agent; Z88.3 Allergy status to other anti-infective agents
CPT/HCPCS: 99211

== ENCOUNTER 2023-07-18 06:53 | Day surgery (SDC) | payer OTHER ==
[2023-07-15 13:29] VITALS: BMI 19.5
[~2023-07-18 06:53] MED LIST changes: -LIDOCAINE 1% (10MG/ML) FOR IV START INTRADERMA PRN
[2023-07-18 07:36] VITALS: TEMP 97
[2023-07-18 07:36] LABS: Glucose,Whole Blood 90 mg/dL (70-110)
[2023-07-18] MEDS ORDERED: ROPIVACAINE 5MG/ML 20ML VIAL ONE (08:29)
[2023-07-18] MEDS ORDERED: methylPREDNISolone ACETATE 80 MG/ML 1 ML VIAL ONE (08:29)
[2023-07-18 08:57] VITALS: BP 125/88; PULSE 94; RESP 16
--- NOTE | 2023-07-18 09:20 | P.PCN ---
Description of Procedure: Preprocedure diagnosis. Bursitis. Postprocedure diagnosis. As above. Procedure done. Right subacromial and right subdeltoid bursa injection with local anesthetics and steroid. Anesthesia. Ethyl chloride spray. Blood loss. None. Indication. Discussed with the patient procedure and possible complications which may include infection, bleeding, nerve damage. Patient understands and all questions were answered. Procedure note. After getting consent patient in OR in prone position. After prepping with chlorhexidine and draping in sterile fashion. 25-gauge needle attached to a syringe was introduced into the right side of the acromial bursa. After negative aspiration 5 mL solution was injected which consists of 0.5% ropivacaine mixed with 40 mg of Depo-Medrol. Again a 25-gauge needle attached to a syringe was introduced into the right side up deltoid bursa. After negative aspiration 5 mL solution was injected which consists of 0.5% ropivacaine mixed with 40 mg of Depo-Medrol. Disposition. Patient tolerated the procedure well. No complication. Discharged home in stable condition.
== END 2023-07-18 09:00 | disposition home or self-care (01) ==
LOC: ORPAIN 06:53
PROVIDERS: ATTEND Pain Medicine Interventional Pain Medicine
DX: M75.51 Bursitis of right shoulder (principal); Z88.8 Allergy status to other drugs, medicaments and biological substances
CPT/HCPCS: 20610; J1040; J2795

== ENCOUNTER → 2023-08-05 | Outpatient (CLI) | payer OTHER ==
[2023-08-05 08:21] VITALS: BP 124/87; PULSE 104; RESP 16; TEMP 97.1
--- NOTE | 2023-08-05 09:52 | P.PAINPG ---
PQRS Measure Charge Sheet Comment: HISTORY OF PRESENT ILLNESS: A 47 yr old female presents today w severe and chronic neck & R shoulder pain x 1 yr secondary to post laminectomy syndrome and R shoulder DJD for evaluation s/p R subacromial/ R subdeltoid bursa injection #1. Pt states she experienced 70 % pain relief x 2-3 wks s/p procedure. Pt states pain level is provoked at 8 /10 in intensity, constant, localized in the lower cervical spine, predominantly axial, burning in character w occasional shooting pain towards the R shoulder and RUE. Pain is provoked by lifting & abduction of RUE. Pain is alleviated by PT x 8 wks which ended in Oct 2022, massage therapy x 1 yr every 2 mo w last visit in Jan 2023, chiropractic treatments q3wks which ended in 2020, physician guided exercises every morning since Jan 2023 but have been provoking pain since Apr 2023, heat, medications, topical, repositioning and rest. Cervical disability score at 18. Interventional procedures include R Subacromial/ R Subdeltoid bursa x1 Medications include Neurontin, Flexeril, Ibu, Mobic REVIEW OF ORGAN SYSTEMS: CONSTITUTIONAL: No fevers or chills. No recent weight loss. NEUROLOGICAL: + numbness and tingling along the distal extremities. No seizure disorders or headaches. MUSCULOSKELETAL: + pain PSYCHIATRIC: Denies current depression or suicidal thoughts. Physical Examinations : Constitutional : Cooperative , not in acute distress . Neurologic : Cranial nerve II to XII intact. No focal neurological deficits. Psychiatric : alert & oriented x 3. Matching mood & appropriate affect. Judgment & insight intact. Musculoskeletal : Cervical Spine R AC/ GH joint line TTP Motor strength in the deltoid and biceps: Normal right side. Normal Left side Motor strength biceps and the wrist extensors: Normal right side . Normal left side Motor strength in the triceps muscle: Normal right side. Normal left side Deep tendon reflexes: Normal at the biceps. Normal at Brachioradialis. Normal at triceps Vertebral body tenderness to deep palpation over Cervical facet loading test: positive bilaterally Spurling test: positive bilaterally Neck distraction test: positive bilaterally Kalen sign: positive bilaterally Lumbar spine Motor strength lower extremities ,thigh and legs 5/5 Right side , 5/5 Left side Deep tendon reflexes : Normal Knee Jerk. Normal Ankle Jerk Vertebral body tenderness over Chung Test positive Lumbar facet Loading Test: positive Right / positive Left Range of motion of the lumbar spine Flexion 30 degrees, extension 10 degrees Straight Leg Raise test: Left/ Right positive at degrees Crys test: positive right / positive left. Severe tenderness over the Sacroiliac joint on the Right / Left sides Gaenslen test: positive bilaterally Seated flexion test: positive bilaterally. Sacral spine : Severe tenderness over the Sacroiliac joint: right side / left side Range of motion: Flexion of the lumbar spine <60 degrees Range of motion: Extension of the lumbar spine <20 degrees Gaenslen's Test positive Crys test: positive right side / left side Thigh Thrust Test Sacral Thrust Test Imaging: MRI noncontrast of the cervical spine from 08/17/22 reviewed MRI noncontrast thoracic spine from 10/01/22 reviewed MRI noncontrast of the R shoulder from 05/23/23 reviewed Assessment/ Plan : R Shoulder DJD, R Shoulder Bursitis, R Shoulder Tendinosis Recommendation of R subacromial/ R subdeltoid bursa injection #2. May need a series of injections for optimal pain relief. Risks, benefits of procedure discussed and patient verbalized understanding. All questions answered. I have spent greater than 30 minutes on patient care today. Dr Salmon was available by phone for the evaluation of this patient. The time was used to review the medical records including relevant urine studies and Prescription history (MAPs), review of the available imaging, evaluation and examination of the patient, coordination of care with the medical staff and if applicable referring physicians, as well as creation of the medical record PQRS Narrative: Smoking Status Current every day smoker Hx Alcohol Use (MH) No Home Medications: Ambulatory Orders Topiramate [Topamax] 100 mg PO HS PRN 09/25/17 ALPRAZolam [Xanax] 0.5 mg PO BID PRN 05/17/20 Dicyclomine [Bentyl] 20 mg PO TID PRN 05/17/20 Meclizine [Antivert] 25 mg PO TID PRN #20 tab 05/17/20 Cyclobenzaprine [Flexeril] 10 mg PO TID 05/29/23 Gabapentin [Neurontin] 400 mg PO BID 05/29/23 Aspirin/Acetaminophen/Caffeine [Excedrin Migraine Caplet] 1 each PO QAM PRN 07/15/23 Pantoprazole Sodium [Protonix] 40 mg PO QAM 07/15/23 Tramadol Dose Unknown 1 dose PO QAM PRN 07/15/23 diazePAM [Valium] 5 mg PO DAILY PRN 1 Days #2 tab 07/15/23 Rimegepant Sulfate [Nurtec Odt] 75 mg PO 07/18/23 Controlled Substance Measures - Controlled Substance Measures Is patient prescribed a controlled substance at discharge?: Yes When asked, does pt state using other controlled substances?: Yes If prescribed controlled substance>3 days was MAPS reviewed?: Prescribed <3 Days
== END ==
LOC: PNWHC3 07:47
PROVIDERS: ATTEND Specialist
DX: M19.011 Primary osteoarthritis, right shoulder (principal); M75.51 Bursitis of right shoulder; M67.813 Other specified disorders of tendon, right shoulder; F17.200 Nicotine dependence, unspecified, uncomplicated; Z88.8 Allergy status to other drugs, medicaments and biological substances
CPT/HCPCS: 99211

== ENCOUNTER → 2023-09-05 | Day surgery (SDC) | payer OTHER ==
[~2023-09-05] MED LIST changes: +ROPIVACAINE 5MG/ML 20ML VIAL ONE; +methylPREDNISolone ACETATE 40 MG/ML 1 ML VIAL ONE
[2023-09-05 07:24] VITALS: TEMP 96.9
--- NOTE | 2023-09-05 08:21 | P.PCN ---
Date of Procedure: 09/05/23 Procedure(s) Performed: Pre-op diagnosis= right subacromial and right subdeltoid bursa tendinosis Postop diagnosis= same as preop diagnosis. Procedure done. Right subacromial and right subdeltoid bursa injection with local anesthetics and steroid. Anesthesia. Ethyl chloride spray. Blood loss. None. Indication. Discussed with the patient procedure and possible complications which may include infection, bleeding, nerve damage. Patient understands and all questions were answered. Procedure note. After getting consent patient in OR in lateral position( right side up ) After prepping with chlorhexidine and draping in sterile fashion. 25-gauge needle attached to a syringe was introduced into the right side of the acromial bursa. After negative aspiration 5 mL solution was injected which consists of 0.5% ropivacaine mixed with 40 mg of Depo-Medrol. Again a 25-gauge needle attached to a syringe was introduced into the right side up deltoid bursa. After negative aspiration 5 mL solution was injected which consists of 0.5% ropivacaine mixed with 40 mg of Depo-Medrol. Disposition. Patient tolerated the procedure well. No complication. Discharged home in stable condition.
[2023-09-05 09:14] VITALS: BP 121/87; PULSE 87; RESP 14
== END ==
LOC: ORPAIN 06:49
PROVIDERS: ATTEND Specialist
DX: M75.51 Bursitis of right shoulder (principal); Z88.8 Allergy status to other drugs, medicaments and biological substances
CPT/HCPCS: 20610; J2795; J1010; 20605

== ENCOUNTER → 2023-09-24 | Outpatient (CLI) | payer OTHER ==
--- NOTE | 2023-09-24 17:41 | US ---
EXAMINATION TYPE: US kidneys/renal and bladder DATE OF EXAM: 09/24/2023 COMPARISON: CT abdomen and pelvis 04/30/2020 CLINICAL INDICATION: Female, 48 years old with history of R31.9 HEMATURIA, UNSPECIFIED; Hematuria EXAM MEASUREMENTS: Right Kidney: 9.4 x 4.3 x 4.3 cm Left Kidney: 10.7 x 5.3 x 4.1 cm Right Kidney: no evidence of hydronephrosis Left Kidney: anechoic lesion upper/mid = 2.0 x 2.0 x 2.0cm Bladder: wnl Bilateral Jets seen: no There is no evidence for hydronephrosis at this point in time. No nephrolithiasis is seen. Renal sin us simple cyst measuring up to 2 cm corresponding to prior CT. Cortical medullary differentiation is maintained bilaterally. No solid masses are identified. The urinary bladder is anechoic. Bilateral ureteral jets are not seen. IMPRESSION: No ultrasound evidence for obstructive uropathy.
== END | disposition home or self-care (01) ==
LOC: RADUSWWP 16:37
PROVIDERS: ATTEND Family Medicine
DX: R31.9 Hematuria, unspecified (principal)
CPT/HCPCS: 76770

== ENCOUNTER → 2023-09-30 | Outpatient (CLI) | payer OTHER ==
[2023-09-30 07:52] VITALS: BP 122/84; PULSE 95; RESP 16; TEMP 97.6
--- NOTE | 2023-09-30 14:55 | P.PAINPG ---
PQRS Measure Charge Sheet Comment: HISTORY OF PRESENT ILLNESS: A 47 yr old female presents today w severe and chronic neck & R shoulder pain x 1 yr secondary to post laminectomy syndrome and R shoulder DJD for evaluation s/p R subacromial/ R subdeltoid bursa injection #2. Pt states she experienced 50 % pain relief x 3 wks s/p procedure. Pt states pain level is provoked at 4 /10 in intensity, constant, localized in the lower cervical spine, predominantly axial, burning in character w occasional shooting pain towards the R shoulder and RUE. Pain is provoked by lifting & abduction of RUE. Pain is alleviated by PT x 8 wks which ended in Oct 2022, massage therapy x 1 yr every 2 mo w last visit in Jan 2023, chiropractic treatments q3wks which ended in 2020, physician guided exercises every morning since Jan 2023 but have been provoking pain since Apr 2023, heat, medications, topical, repositioning and rest. Cervical disability score at 15. Interventional procedures include R Subacromial/ R Subdeltoid bursa x2 Medications include Neurontin, Flexeril, Ibu, Mobic REVIEW OF ORGAN SYSTEMS: CONSTITUTIONAL: No fevers or chills. No recent weight loss. NEUROLOGICAL: + numbness and tingling along the distal extremities. No seizure disorders or headaches. MUSCULOSKELETAL: + pain PSYCHIATRIC: Denies current depression or suicidal thoughts. Physical Examinations : Constitutional : Cooperative , not in acute distress . Neurologic : Cranial nerve II to XII intact. No focal neurological deficits. Psychiatric : alert & oriented x 3. Matching mood & appropriate affect. Judgment & insight intact. Musculoskeletal : Cervical Spine R AC/ GH joint line TTP Motor strength in the deltoid and biceps: Normal right side. Normal Left side Motor strength biceps and the wrist extensors: Normal right side . Normal left side Motor strength in the triceps muscle: Normal right side. Normal left side Deep tendon reflexes: Normal at the biceps. Normal at Brachioradialis. Normal at triceps Vertebral body tenderness to deep palpation over Cervical facet loading test: positive bilaterally Spurling test: positive bilaterally Neck distraction test: positive bilaterally Kalen sign: positive bilaterally Lumbar spine Motor strength lower extremities ,thigh and legs 5/5 Right side , 5/5 Left side Deep tendon reflexes : Normal Knee Jerk. Normal Ankle Jerk Vertebral body tenderness over Chung Test positive Lumbar facet Loading Test: positive Right / positive Left Range of motion of the lumbar spine Flexion 30 degrees, extension 10 degrees Straight Leg Raise test: Left/ Right positive at degrees Crys test: positive right / positive left. Severe tenderness over the Sacroiliac joint on the Right / Left sides Gaenslen test: positive bilaterally Seated flexion test: positive bilaterally. Sacral spine : Severe tenderness over the Sacroiliac joint: right side / left side Range of motion: Flexion of the lumbar spine <60 degrees Range of motion: Extension of the lumbar spine <20 degrees Gaenslen's Test positive Crys test: positive right side / left side Thigh Thrust Test Sacral Thrust Test Imaging: MRI noncontrast of the cervical spine from 08/17/22 reviewed MRI noncontrast thoracic spine from 10/01/22 reviewed MRI noncontrast of the R shoulder from 05/23/23 reviewed Assessment/ Plan : R Shoulder DJD, R Shoulder Bursitis, R Shoulder Tendinosis Recommendation of use of TENS unit at home. All questions answered. I have spent greater than 30 minutes on patient care today. Dr Salmon was available by phone for the evaluation of this patient. The time was used to review the medical records including relevant urine studies and Prescription history (MAPs), review of the available imaging, evaluation and examination of the patient, coordination of care with the medical staff and if applicable referring physicians, as well as creation of the medical record PQRS Narrative: Smoking Status Current every day smoker Hx Alcohol Use (MH) No Home Medications: Ambulatory Orders Topiramate [Topamax] 100 mg PO HS PRN 09/25/17 ALPRAZolam [Xanax] 0.5 mg PO BID 05/17/20 Dicyclomine [Bentyl] 20 mg PO TID PRN 05/17/20 Meclizine [Antivert] 25 mg PO TID PRN #20 tab 05/17/20 Cyclobenzaprine [Flexeril] 10 mg PO TID PRN 05/29/23 Gabapentin [Neurontin] 400 mg PO BID PRN 05/29/23 Aspirin/Acetaminophen/Caffeine [Excedrin Migraine Caplet] 1 each PO QAM PRN 07/15/23 Pantoprazole Sodium [Protonix] 40 mg PO QAM 07/15/23 Tramadol Dose Unknown 50 mg PO QAM PRN 07/15/23 Rimegepant Sulfate [Nurtec Odt] 75 mg PO DIRECTED 07/18/23 Ibuprofen [Motrin Ib] 200 mg PO DIRECTED PRN 09/03/23 Controlled Substance Measures - Controlled Substance Measures Is patient prescribed a controlled substance at discharge?: No
== END ==
LOC: PNWHC3 07:37
PROVIDERS: ATTEND Specialist
DX: M19.011 Primary osteoarthritis, right shoulder (principal); M75.51 Bursitis of right shoulder; M75.21 Bicipital tendinitis, right shoulder; F17.200 Nicotine dependence, unspecified, uncomplicated; Z88.8 Allergy status to other drugs, medicaments and biological substances
CPT/HCPCS: 99211

== ENCOUNTER → 2023-11-04 | Outpatient (CLI) | payer OTHER ==
[2023-11-04 07:41] VITALS: BP 118/85; PULSE 95; RESP 16
--- NOTE | 2023-11-04 14:59 | P.PAINPG ---
Objective - Vital Signs Vital signs: Intake & Output 11/03/23 11/04/23 11/04/23 18:59 06:59 18:59 Weight 54.431 kg PQRS Measure Charge Sheet Mode of Arrival: Ambulatory Comment: HISTORY OF PRESENT ILLNESS: A 48 yr old female presents today w severe and chronic neck & R shoulder pain x 1 yr secondary to post laminectomy syndrome and R shoulder DJD for evaluation. Pt states pain level is provoked at 4 /10 in intensity, constant, localized in the lower cervical spine, predominantly axial, burning in character w occasional shooting pain towards the R upper back and R shoulder. Pain is provoked by lifting & abduction of RUE. Pain is alleviated by PT x 8 wks which ended in Oct 2022, massage therapy x 1 yr every 2 mo w last visit in Jan 2023, chiropractic treatments q3wks which ended in 2020, physician guided exercises every morning since Jan 2023 but have been provoking pain since Apr 2023, heat, medications, use of a TENS unit at home, topical, repositioning and rest. Cervical disability score at 15. Interventional procedures include R Subacromial/ R Subdeltoid bursa x2 Medications include Neurontin, Flexeril, Ibu, Mobic REVIEW OF ORGAN SYSTEMS: CONSTITUTIONAL: No fevers or chills. No recent weight loss. NEUROLOGICAL: + numbness and tingling along the distal extremities. No seizure disorders or headaches. MUSCULOSKELETAL: + pain PSYCHIATRIC: Denies current depression or suicidal thoughts. Physical Examinations : Constitutional : Cooperative , not in acute distress . Neurologic : Cranial nerve II to XII intact. No focal neurological deficits. Psychiatric : alert & oriented x 3. Matching mood & appropriate affect. Judgment & insight intact. Musculoskeletal : Cervical Spine R AC/ GH joint line TTP Motor strength in the deltoid and biceps: Normal right side. Normal Left side Motor strength biceps and the wrist extensors: Normal right side . Normal left side Motor strength in the triceps muscle: Normal right side. Normal left side Deep tendon reflexes: Normal at the biceps. Normal at Brachioradialis. Normal at triceps Vertebral body tenderness to deep palpation over Cervical facet loading test: positive bilaterally Spurling test: positive bilaterally Neck distraction test: positive bilaterally Kalen sign: positive bilaterally Lumbar spine Motor strength lower extremities ,thigh and legs 5/5 Right side , 5/5 Left side Deep tendon reflexes : Normal Knee Jerk. Normal Ankle Jerk Vertebral body tenderness over Chung Test positive Lumbar facet Loading Test: positive Right / positive Left Range of motion of the lumbar spine Flexion 30 degrees, extension 10 degrees Straight Leg Raise test: Left/ Right positive at degrees Crys test: positive right / positive left. Severe tenderness over the Sacroiliac joint on the Right / Left sides Gaenslen test: positive bilaterally Seated flexion test: positive bilaterally. Sacral spine : Severe tenderness over the Sacroiliac joint: right side / left side Range of motion: Flexion of the lumbar spine <60 degrees Range of motion: Extension of the lumbar spine <20 degrees Gaenslen's Test positive Crys test: positive right side / left side Thigh Thrust Test Sacral Thrust Test Imaging: MRI noncontrast of the cervical spine from 08/17/22 reviewed MRI noncontrast thoracic spine from 10/01/22 reviewed MRI noncontrast of the R shoulder from 05/23/23 reviewed Assessment/ Plan : R Shoulder DJD, R Shoulder Bursitis, R Shoulder Tendinosis Recommendation of R subacromial/ subdeltoid bursa injection #3. May need a series of injections for optimal pain relief. Risks, benefits of procedure discussed and patient verbalized understanding. Minimal anesthesia including Fentanyl and Versed if indicated. All questions answered. I have spent greater than 30 minutes on patient care today. Dr Salmon was available by phone for the evaluation of this patient. The time was used to review the medical records including relevant urine studies and Prescription history (MAPs), review of the available imaging, evaluation and examination of the patient, coordination of care with the medical staff and if applicable referring physicians, as well as creation of the medical record - Pain Location Right Shoulder Non-Pharmacological Interventions: Chiropractic Treatment, Heat, Ice, Inactivity, Massage, Physical Therapy, Position/Reposition, Sitting Pharmacological Interventions: Block, PRN Medication, Scheduled Medication, Topical Medication PQRS Narrative: Smoking Status Current every day smoker Hx Alcohol Use (MH) No Home Medications: Ambulatory Orders Topiramate [Topamax] 100 mg PO HS PRN 09/25/17 ALPRAZolam [Xanax] 0.5 mg PO BID 05/17/20 Dicyclomine [Bentyl] 20 mg PO TID PRN 05/17/20 Meclizine [Antivert] 25 mg PO TID PRN #20 tab 05/17/20 Cyclobenzaprine [Flexeril] 10 mg PO TID PRN 05/29/23 Gabapentin [Neurontin] 400 mg PO BID PRN 05/29/23 Aspirin/Acetaminophen/Caffeine [Excedrin Migraine Caplet] 1 each PO QAM PRN 07/15/23 Pantoprazole Sodium [Protonix] 40 mg PO QAM 07/15/23 Tramadol Dose Unknown 50 mg PO QAM PRN 07/15/23 Rimegepant Sulfate [Nurtec Odt] 75 mg PO DIRECTED 07/18/23 Ibuprofen [Motrin Ib] 200 mg PO DIRECTED PRN 09/03/23 diazePAM [Valium] 5 mg PO DAILY PRN 1 Days #2 tab 11/04/23 Controlled Substance Measures - Controlled Substance Measures Is patient prescribed a controlled substance at discharge?: Yes When asked, does pt state using other controlled substances?: Yes If prescribed controlled substance>3 days was MAPS reviewed?: Prescribed <3 Days
== END ==
LOC: PNWHC3 07:24
PROVIDERS: ATTEND Specialist
DX: M19.011 Primary osteoarthritis, right shoulder (principal); M67.813 Other specified disorders of tendon, right shoulder; M75.51 Bursitis of right shoulder; F17.200 Nicotine dependence, unspecified, uncomplicated; Z88.8 Allergy status to other drugs, medicaments and biological substances
CPT/HCPCS: 99211

== ENCOUNTER 2023-11-08 06:13 | Day surgery (SDC) | payer OTHER ==
[2023-11-07 09:08] VITALS: BMI 19.8
[~2023-11-08 06:13] MED LIST changes: -ROPIVACAINE 5MG/ML 20ML VIAL ONE; -methylPREDNISolone ACETATE 40 MG/ML 1 ML VIAL ONE
[2023-11-08] MEDS: IV FLUID CONTINUATION 1,000 ML IV ONE ×2 (06:51→08:00)
[2023-11-08 07:07] VITALS: RESP 16; TEMP 97
[2023-11-08] MEDS ORDERED: ROPIVACAINE 5MG/ML 20ML VIAL ONE (07:40)
[2023-11-08] MEDS ORDERED: TRIAMCINOLONE ACETONIDE 40 MG/ML 1 ML VIAL ONE (07:40)
[2023-11-08] MEDS ORDERED: MIDAZOLAM 2 MG/2 ML VIAL ONE (07:40)
--- NOTE | 2023-11-08 07:56 | P.PCN ---
Date of Procedure: 11/08/23 Anesthesia: MAC (with 2 mg of Versed) Surgeon: Jamil Barrera Pathology: none sent Condition: stable Disposition: PACU Description of Procedure: the patient was brought into the procedure room after obtaining the consent form was preoperatively. She was placed in the left lateral decubitus position. Ultrasound was used to identify the subacromial and subdeltoid bursae , then I used 1-1/2 inch 21-gauge Stimuplex needle to go with ultrasound guidance into the subacromial bursa and injected 3 MLS of ropivacaine 0.5% +10 mg of Kenalog I then redirected the needle into the subdeltoid bursa and injected 2 MLS of ropivacaine 0.5% +10 mg of Kenalog. Patient received a total dose of Kenalog of 20 mg. Patient tolerated procedure well.. sedation time: [id number]
[2023-11-08 08:30] VITALS: BP 125/86; PULSE 87
== END 2023-11-08 08:46 | disposition home or self-care (01) ==
LOC: ORPAIN 06:13
PROVIDERS: ATTEND Anesthesiology
DX: M25.511 Pain in right shoulder (principal)
CPT/HCPCS: 20610; J2250; J3301; J2795; 20611; 99152

== ENCOUNTER → 2023-11-11 | Outpatient (CLI) | payer OTHER ==
--- NOTE | 2023-11-11 09:53 | XR ---
EXAMINATION TYPE: XR chest 2V DATE OF EXAM: 11/11/2023 9:46 AM CLINICAL INDICATION:Female, 48 years old with history of R07.9 chest pain; COMPARISON: Chest radiographs from 11/11/2023. TECHNIQUE: XR chest 2V Frontal view of the chest. FINDINGS: Lungs/Pleura: There is flattening of the diaphragm with increased lucency of the lungs. No evidence o f pneumothorax, pleural effusion or focal consolidation. Pulmonary vascularity: Unremarkable. Heart/mediastinum: Cardiomediastinal silhouette is unremarkable. Musculoskeletal: No acute osseous pathology. IMPRESSION: Chronic changes without acute pulmonary process. No significant change from prior.
== END | disposition home or self-care (01) ==
LOC: RADXRMAIN 09:35
PROVIDERS: ATTEND Family Medicine
DX: R07.9 Chest pain, unspecified (principal); R00.0 Tachycardia, unspecified; K30 Functional dyspepsia
CPT/HCPCS: 71046

== ENCOUNTER → 2023-12-30 | Outpatient (CLI) | payer OTHER ==
[2023-12-30 08:11] VITALS: BP 122/87; PULSE 103; RESP 16; TEMP 97.1
--- NOTE | 2023-12-30 15:06 | P.PAINPG ---
PQRS Measure Charge Sheet Comment: HISTORY OF PRESENT ILLNESS: A 48 yr old female presents today w severe and chronic neck & R shoulder pain x 1 yr secondary to post laminectomy syndrome and R shoulder DJD for evaluation s/p R subacromial/ subdeltoid bursa injection #3. Pt states she experienced 95 % pain relief x 3 wks s/p procedure. Pt states pain level is provoked at 8 /10 in intensity, intermittent, localized in the lower cervicothoracic spine, predominantly axial, burning in character without shooting pain . Pain is provoked by lifting & abduction of RUE. Pain is alleviated by PT x 8 wks which ended in Oct 2022 (cervicothoracic, RUE), massage therapy x 1 yr every 2 mo w last visit in Jan 2023 (cervicothoracic), chiropractic treatments q3wks which ended in 2020 (cervical), physician guided exercises every morning since Jan 2023 but have been provoking pain since Apr 2023, heat, medications, use of a TENS unit at home, topical, repositioning and rest. Interventional procedures include R Subacromial/ R Subdeltoid bursa x3 Medications include Neurontin, Flexeril, Ibu, Mobic REVIEW OF ORGAN SYSTEMS: CONSTITUTIONAL: No fevers or chills. No recent weight loss. NEUROLOGICAL: + numbness and tingling along the distal extremities. No seizure disorders or headaches. MUSCULOSKELETAL: + pain PSYCHIATRIC: Denies current depression or suicidal thoughts. Physical Examinations : Constitutional : Cooperative , not in acute distress . Neurologic : Cranial nerve II to XII intact. No focal neurological deficits. Psychiatric : alert & oriented x 3. Matching mood & appropriate affect. Judgment & insight intact. Musculoskeletal : Cervical Spine R AC/ GH joint line TTP Motor strength in the deltoid and biceps: Normal right side. Normal Left side Motor strength biceps and the wrist extensors: Normal right side . Normal left side Motor strength in the triceps muscle: Normal right side. Normal left side Deep tendon reflexes: Normal at the biceps. Normal at Brachioradialis. Normal at triceps Vertebral body tenderness to deep palpation over Cervical facet loading test: positive bilaterally Taut bands w twitch response over R T3- T10 Spurling test: positive bilaterally Neck distraction test: positive bilaterally Kalen sign: positive bilaterally Lumbar spine Motor strength lower extremities ,thigh and legs 5/5 Right side , 5/5 Left side Deep tendon reflexes : Normal Knee Jerk. Normal Ankle Jerk Vertebral body tenderness over Chung Test positive Lumbar facet Loading Test: positive Ri ght / positive Left Range of motion of the lumbar spine Flexion 30 degrees, extension 10 degrees Straight Leg Raise test: Left/ Right positive at degrees Crys test: positive right / positive left. Severe tenderness over the Sacroiliac joint on the Right / Left sides Gaenslen test: positive bilaterally Seated flexion test: positive bilaterally. Sacral spine : Severe tenderness over the Sacroiliac joint: right side / left side Range of motion: Flexion of the lumbar spine <60 degrees Range of motion: Extension of the lumbar spine <20 degrees Gaenslen's Test positive Crys test: positive right side / left side Thigh Thrust Test Sacral Thrust Test Imaging: MRI noncontrast of the cervical spine from 08/17/22 reviewed MRI noncontrast thoracic spine from 10/01/22 reviewed MRI noncontrast of the R shoulder from 06/12/23 reviewed Assessment/ Plan : R Shoulder DJD, R Shoulder Bursitis, R Shoulder Tendinosis Recommendation of R TPIs T4-T10 #1 and repeat application for TENS unit M 19.019. Risks, benefits of procedure discussed and patient verbalized understanding. All questions answered. I have spent greater than 30 minutes on patient care today. Dr Salmon was available by phone for the evaluation of this patient. The time was used to review the medical records including relevant urine studies and Prescription history (MAPs), review of the available imaging, evaluation and examination of the patient, coordination of care with the medical staff and if applicable referring physicians, as well as creation of the medical record PQRS Narrative: Smoking Status Current every day smoker Hx Alcohol Use (MH) No Home Medications: Ambulatory Orders ALPRAZolam [Xanax] 0.5 mg PO BID 05/17/20 Dicyclomine [Bentyl] 20 mg PO TID PRN 05/17/20 Meclizine [Antivert] 25 mg PO TID PRN #20 tab 05/17/20 Cyclobenzaprine [Flexeril] 10 mg PO TID PRN 05/29/23 Gabapentin [Neurontin] 400 mg PO BID PRN 05/29/23 Aspirin/Acetaminophen/Caffeine [Excedrin Migraine Caplet] 1 each PO QAM PRN 07/15/23 Pantoprazole Sodium [Protonix] 40 mg PO QAM 07/15/23 traMADol HCL 50 mg PO BID PRN 07/15/23 Rimegepant Sulfate [Nurtec Odt] 75 mg PO DIRECTED 07/18/23 Ibuprofen [Motrin Ib] 200 mg PO DIRECTED PRN 09/03/23 diazePAM [Valium] 5 mg PO DAILY PRN 1 Days #2 tab 11/04/23 Controlled Substance Measures - Controlled Substance Measures Is patient prescribed a controlled substance at discharge?: No
== END ==
LOC: PNWHC3 07:25
PROVIDERS: ATTEND Specialist
DX: M25.511 Pain in right shoulder
CPT/HCPCS: 99211

== ENCOUNTER 2024-01-09 13:00 | Day surgery (SDC) | payer OTHER ==
[2024-01-09] MEDS ORDERED: LACTATED RINGERS 1,000 ML IV SCH (13:35)
[2024-01-09 13:44] VITALS: TEMP 97
[2024-01-09] MEDS ORDERED: ROPIVACAINE 5MG/ML 20ML VIAL ONE (14:30)
[2024-01-09] MEDS ORDERED: methylPREDNISolone ACETATE 40 MG/ML 1 ML VIAL ONE (14:30)
--- NOTE | 2024-01-09 14:36 | P.PCN ---
Date of Procedure: 01/09/24 Procedure(s) Performed: Procedure= trigger point injections Thoracic paraspinal muscles , 6 on the right side from T4- T10. Preoperative diagnosis= 1-myofascial pain syndrome Thoracic paraspinal muscles. Postoperative diagnosis=Same as preop Diagnosis . Complication = none Condition= stable Anesthesia= none Indication for the procedure= patient complaining of lower and mid back pain , examination was positive for multiple trigger point in the Right Thoracic paraspinal muscles , and patient diagnosed with myofascial pain syndrome and is here to have trigger point injections Description of the procedure= procedure risk and benefits discussed with the patient, including but not limited, risk of infection and bleeding, and ALLERGIC reaction to the medication and not complete pain relief and patient agreed with the preceding patient taken to the operating room, placed in Lateral position (Right side up ) OR standard monitors applied to the patient then after induction of anesthesia back prepped with chlorhexidine 3 times , then under sterile technique each of the trigger point that was marked in the preop holding area 6 on the right side Thoracic paraspinal muscles, each one of them injected with the 2 mL of the mixture of ropivacaine 0.5% 12 ML mixed with 40 mg of Depo- Medrol and 2 mL of the mixture injected at each trigger point after negative aspiration, using 25-gauge needle, injection done after negative aspiration under was no paresthesia during the injection patient tolerated the procedure well without any complications and he will follow up in the pain clinic in a few weeks
[2024-01-09 14:38] VITALS: RESP 16
[2024-01-09 14:51] VITALS: BP 126/84; PULSE 84
== END 2024-01-09 14:56 | disposition home or self-care (01) ==
LOC: ORPAIN 13:00
PROVIDERS: ATTEND Anesthesiology
DX: M54.14 Radiculopathy, thoracic region
CPT/HCPCS: 20553

== ENCOUNTER → 2024-01-20 | Outpatient (CLI) | payer OTHER ==
[2024-01-20 08:54] VITALS: BP 119/90; PULSE 109; RESP 16; TEMP 97.5
--- NOTE | 2024-01-20 15:04 | P.PAINPG ---
PQRS Measure Charge Sheet Comment: HISTORY OF PRESENT ILLNESS: A 48 yr old female presents today w severe and chronic neck & R shoulder pain x 1 yr secondary to post laminectomy syndrome, Thoracic radiculopathy and R shoulder DJD for evaluation s/p R TPIs T4-T10 #1. Pt states she experienced 70 % pain relief x 2 wks s/p procedure. Pt states pain level is provoked at 6 /10 in intensity, intermittent, localized in the lower cervicothoracic spine, predominantly axial, burning in character w shooting pain towards the R upper back. Pain is provoked by lifting & abduction of RUE. Pain is alleviated by PT x 8 wks which ended in Oct 2022 (cervicothoracic, RUE), massage therapy x 1 yr every 2 mo w last visit in Jan 2023 (cervicothoracic), chiropractic treatments q3wks which ended in 2020 (cervical), physician guided exercises every morning since Jan 2023 but have been provoking pain since Apr 2023, heat, medications, use of a TENS unit at home, topical, repositioning and rest. Interventional procedures include R Subacromial/ R Subdeltoid bursa x3, R TPIs T4-T10 x1 (Dec 2023) Medications include Tramadol, Flexeril, Ibu, Mobic, Lidoderm REVIEW OF ORGAN SYSTEMS: CONSTITUTIONAL: No fevers or chills. No recent weight loss. NEUROLOGICAL: + numbness and tingling along the distal extremities. No seizure disorders or headaches. MUSCULOSKELETAL: + pain PSYCHIATRIC: Denies current depression or suicidal thoughts. Physical Examinations : Constitutional : Cooperative , not in acute distress . Neurologic : Cranial nerve II to XII intact. No focal neurological deficits. Psychiatric : alert & oriented x 3. Matching mood & appropriate affect. Judgment & insight intact. Musculoskeletal : Cervical Spine R AC/ GH joint line TTP Motor strength in the deltoid and biceps: Normal right side. Normal Left side Motor strength biceps and the wrist extensors: Normal right side . Normal left side Motor strength in the triceps muscle: Normal right side. Normal left side Deep tendon reflexes: Normal at the biceps. Normal at Brachioradialis. Normal at triceps Vertebral body tenderness to deep palpation over Cervical facet loading test: positive bilaterally Taut bands w twitch response over R T3- T10 Spurling test: positive bilaterally Neck distraction test: positive bilaterally Kalen sign: positive bilaterally Lumbar spine Motor strength lower extremities ,thigh and legs 5/5 Right side , 5/5 Left side Deep tendon reflexes : Normal Knee Jerk. Normal Ankle Jerk Vertebral body tenderness over Chung Test positive Lumbar facet Loading Test: positive Right / positive Left Range of motion of the lumbar spine Flexion 30 degrees, extension 10 degrees Straight Leg Raise test: Left/ Right positive at degrees Crys test: positive right / positive left. Severe tenderness over the Sacroiliac joint on the Right / Left sides Gaenslen test: positive bilaterally Seated flexion test: positive bilaterally. Sacral spine : Severe tenderness over the Sacroiliac joint: right side / left side Range of motion: Flexion of the lumbar spine <60 degrees Range of motion: Extension of the lumbar spine <20 degrees Gaenslen's Test positive Crys test: positive right side / left side Thigh Thrust Test Sacral Thrust Test Imaging: MRI noncontrast of the cervical spine from 08/17/22 reviewed MRI noncontrast thoracic spine from 10/01/22 reviewed MRI noncontrast of the R shoulder from 06/12/23 reviewed Assessment/ Plan : R Shoulder DJD, R Shoulder Bursitis, R Shoulder Tendinosis, Thoracic radiculopathy Recommendation of R TPIs T4-T10 #2. Risks, benefits of procedure discussed and patient verbalized understanding. All questions answered. I have spent greater than 30 minutes on patient care today. Dr Salmon was available by phone for the evaluation of this patient. The time was used to review the medical records including relevant urine studies and Prescription history (MAPs), review of the available imaging, evaluation and examination of the patient, coordination of care with the medical staff and if applicable referring physicians, as well as creation of the medical record PQRS Narrative: Smoking Status Current every day smoker Hx Alcohol Use (MH) No Home Medications: Ambulatory Orders ALPRAZolam [Xanax] 0.5 mg PO BID 05/17/20 Dicyclomine [Bentyl] 20 mg PO TID PRN 05/17/20 Meclizine [Antivert] 25 mg PO TID PRN #20 tab 05/17/20 Cyclobenzaprine [Flexeril] 10 mg PO TID PRN 05/29/23 Gabapentin [Neurontin] 400 mg PO BID PRN 05/29/23 Aspirin/Acetaminophen/Caffeine [Excedrin Migraine Caplet] 1 each PO QAM PRN 07/15/23 Pantoprazole Sodium [Protonix] 40 mg PO QAM 07/15/23 traMADol HCL 50 mg PO BID PRN 07/15/23 Rimegepant Sulfate [Nurtec Odt] 75 mg PO DIRECTED PRN 07/18/23 Ibuprofen [Motrin Ib] 200 mg PO DIRECTED PRN 09/03/23 Unk Loratadine 1 tab PO DAILY PRN 01/07/24 Controlled Substance Measures - Controlled Substance Measures Is patient prescribed a controlled substance at discharge?: No
== END ==
LOC: PNWHC3 07:55
PROVIDERS: ATTEND Specialist
DX: M54.14 Radiculopathy, thoracic region (principal); M47.816 Spondylosis without myelopathy or radiculopathy, lumbar region; M75.51 Bursitis of right shoulder; M67.813 Other specified disorders of tendon, right shoulder; M19.011 Primary osteoarthritis, right shoulder; F17.200 Nicotine dependence, unspecified, uncomplicated; Z88.8 Allergy status to other drugs, medicaments and biological substances
CPT/HCPCS: 99211

== ENCOUNTER → 2024-01-28 | Day surgery (SDC) | payer OTHER ==
[~2024-01-28] MED LIST changes: -LACTATED RINGERS 1,000 ML IV SCH; +LIDOCAINE 1% INJ 10MG/ML (20 ML MDV) ONE; +MIDAZOLAM 2 MG/2 ML VIAL ONE; +PROPOFOL 10 MG/ML 20 ML VIAL IV ONE
[2024-01-28] MEDS: IV FLUID CONTINUATION 1,000 ML IV ONE (09:08)
[2024-01-28] MEDS: LACTATED RINGERS 1,000 ML IV SCH (09:18)
[2024-01-28 09:19] VITALS: RESP 16; TEMP 97.2
--- NOTE | 2024-01-28 09:40 | P.PCN ---
Date of Procedure: 01/28/24 Procedure(s) Performed: BRIEF HISTORY: Patient is a 48-year-old, pleasant, white female scheduled for an upper endoscopy as a part evaluation of atypical chest pain for the last 6 months duration. She is presently on Protonix 40 mg twice daily with some help.. PROCEDURE PERFORMED: Esophagogastroduodenoscopy with biopsy. PREOPERATIVE DIAGNOSIS: Atypical chest pain. IV sedation per anesthesia. PROCEDURE: After informed consent was obtained, the patient was brought into the endoscopy unit. IV sedation was administered by Anesthesia under continuous monitoring. Initially the Olympus GIF-140 video endoscope was inserted into the mouth. Esophagus intubated without any difficulty. It was gradually advanced into the stomach and duodenum and carefully examined. The bulb and the second part of the duodenum appeared normal. The scope at this time was withdrawn to the stomach, adequately insufflated with air, and upon careful examination, mucosa of the antrum, patchy areas of erythema consistent with gastritis and biopsies were done from this area. Mucosa of the body, cardia and the fundus appeared normal. The scope was then withdrawn into the esophagus. Sliding-type hiatal hernia noted. The GE junction was located at 39 cm from the incisors. The esophagus appeared normal. There were no erosions or ulcerations seen, biopsies were done from the distal esophagus and the patient tolerated the procedure well. IMPRESSION: 1. Mild antral gastritis. 2. Small hiatal hernia. RECOMMENDATIONS: The findings of this examination were discussed with the patient as well as her family. She was advised to follow-up with the biopsy results. Continue with Protonix 40 mg twice a day and follow antireflux measures. Follow-up in the office in 3 to 4 weeks..
[2024-01-28] MEDS: KETOROLAC 15 MG/ML 1 ML VIAL IVP STA (10:01)
[2024-01-28 10:05] VITALS: BP 131/86; PULSE 103
== END ==
LOC: ORWHC2ENDO 08:45
PROVIDERS: ATTEND Internal Medicine Gastroenterology
CPT/HCPCS: 43239; 88305

== ENCOUNTER → 2024-02-13 | Day surgery (SDC) | payer OTHER ==
[~2024-02-13] MED LIST changes: +LACTATED RINGERS 1,000 ML IV SCH; -LIDOCAINE 1% INJ 10MG/ML (20 ML MDV) ONE; -MIDAZOLAM 2 MG/2 ML VIAL ONE; -PROPOFOL 10 MG/ML 20 ML VIAL IV ONE; +ROPIVACAINE 5MG/ML 20ML VIAL ONE; +methylPREDNISolone ACETATE 40 MG/ML 1 ML VIAL ONE
[2024-02-13 06:27] VITALS: TEMP 97.1
--- NOTE | 2024-02-13 07:15 | P.PCN ---
Date of Procedure: 02/13/24 Procedure(s) Performed: Procedure= trigger point injections Thoracic paraspinal muscles , 8 on the right side from T4- T10. Preoperative diagnosis= 1-myofascial pain syndrome Thoracic paraspinal muscles. Postoperative diagnosis=Same as preop Diagnosis . Complication = none Condition= stable Anesthesia= none Indication for the procedure= patient complaining of lower and mid back pain , examination was positive for multiple trigger point in the Right Thoracic paraspinal muscles , and patient diagnosed with myofascial pain syndrome and is here to have trigger point injections Description of the procedure= procedure risk and benefits discussed with the patient, including but not limited, risk of infection and bleeding, and ALLERGIC reaction to the medication and not complete pain relief and patient agreed with the preceding patient taken to the operating room, placed in Lateral position (Right side up ) OR standard monitors applied to the patient then after induction of anesthesia back prepped with chlorhexidine 3 times , then under sterile technique each of the trigger point that was marked in the preop holding area 6 on the right side Thoracic paraspinal muscles, each one of them injected with the 2 mL of the mixture of ropivacaine 0.5% 16 ML mixed with 40 mg of Depo- Medrol and 2 mL of the mixture injected at each trigger point after negative aspiration, using 25-gauge needle, injection done after negative aspiration under was no paresthesia during the injection patient tolerated the procedure well without any complications and he will follow up in the pain clinic in a few weeks
[2024-02-13 07:22] VITALS: RESP 14
[2024-02-13 07:33] VITALS: BP 128/79; PULSE 93
== END ==
LOC: ORPAIN 06:01
PROVIDERS: ATTEND Specialist
DX: M47.814 Spondylosis without myelopathy or radiculopathy, thoracic region (principal)
CPT/HCPCS: 20553; J2795; J1010

== ENCOUNTER → 2024-05-07 | Outpatient (CLI) | payer OTHER ==
[2024-05-07 09:21] VITALS: BP 118/87; PULSE 94; RESP 16; TEMP 98.1
--- NOTE | 2024-05-07 15:41 | P.PAINPG ---
PQRS Measure Charge Sheet Comment: HISTORY OF PRESENT ILLNESS: A 48 yr old female presents today w severe and chronic neck & R shoulder pain x 1 yr secondary to post laminectomy syndrome, Thoracic radiculopathy and R shoulder DJD for evaluation s/p R TPIs T4-T10 #2. Pt states she experienced 75 % pain relief x 2 mo s/p procedure. Pt states pain level is provoked at 8 /10 in intensity, intermittent, localized in the lower cervicothoracic spine, predominantly axial, burning in character w shooting pain towards the R upper back. Pain is provoked by lifting & abduction of RUE. Pain is alleviated by PT x 8 wks which ended in Oct 2022 (cervicothoracic, RUE), massage therapy x 1 yr every 2 mo w last visit in Jan 2023 (cervicothoracic), chiropractic treatments q3wks which ended in 2020 (cervical), physician guided exercises every morning since Jan 2023 but have been provoking pain since Apr 2023, heat, medications, use of a TENS unit at home, topical, repositioning and rest. Interventional procedures include R Subacromial/ R Subdeltoid bursa x3, R TPIs T4-T10 x2 (Dec 2023, Jan 2024) Medications include Tramadol, Flexeril, Ibu, Mobic, Lidoderm REVIEW OF ORGAN SYSTEMS: CONSTITUTIONAL: No fevers or chills. No recent weight loss. NEUROLOGICAL: + numbness and tingling along the distal ex tremities. No seizure disorders or headaches. MUSCULOSKELETAL: + pain PSYCHIATRIC: Denies current depression or suicidal thoughts. Physical Examinations : Constitutional : Cooperative , not in acute distress . Neurologic : Cranial nerve II to XII intact. No focal neurological deficits. Psychiatric : alert & oriented x 3. Matching mood & appropriate affect. Judgment & insight intact. Musculoskeletal : Cervical Spine R AC/ GH joint line TTP Motor strength in the deltoid and biceps: Normal right side. Normal Left side Motor strength biceps and the wrist extensors: Normal right side . Normal left side Motor strength in the triceps muscle: Normal right side. Normal left side Deep tendon reflexes: Normal at the biceps. Normal at Brachioradialis. Normal at triceps Vertebral body tenderness to deep palpation over Cervical facet loading test: positive bilaterally Taut bands w twitch response over R T3- T10 Spurling test: positive bilaterally Neck distraction test: positive bilaterally Kalen sign: positive bilaterally Lumbar spine Motor strength lower extremities ,thigh and legs 5/5 Right side , 5/5 Left side Deep tendon reflexes : Normal Knee Jerk. Normal Ankle Jerk Vertebral body tenderness over Chung Test positive Lumbar facet Loading Test: positive Right / positive Left Range of motion of the lumbar spine Flexion 30 degrees, extension 10 degrees Straight Leg Raise test: Left/ Right positive at degrees Crys test: positive right / positive left. Severe tenderness over the Sacroiliac joint on the Right / Left sides Gaenslen test: positive bilaterally Seated flexion test: positive bilaterally. Sacral spine : Severe tenderness over the Sacroiliac joint: right side / left side Range of motion: Flexion of the lumbar spine <60 degrees Range of motion: Extension of the lumbar spine <20 degrees Gaenslen's Test positive Crys test: positive right side / left side Thigh Thrust Test Sacral Thrust Test Imaging: MRI noncontrast of the cervical spine from 08/17/22 reviewed MRI noncontrast thoracic spine from 10/01/22 reviewed MRI noncontrast of the R shoulder from 06/12/23 reviewed Assessment/ Plan : R Shoulder DJD, R Shoulder Bursitis, R Shoulder Tendinosis, Thoracic radiculopathy Recommendation of R TPIs T4-T10 #3. Risks, benefits of procedure discussed and patient verbalized understanding. All questions answered. I have spent greater than 30 minutes on patient care today. Dr Salmon was available by phone for the evaluation of this patient. The time was used to review the medical records including relevant urine studies and Prescription history (MAPs), review of the available imaging, evaluation and examination of the patient, coordination of care with the medical staff and if applicable referring physicians, as well as creation of the medical record PQRS Narrative: Smoking Status Current every day smoker Hx Alcohol Use (MH) No Home Medications: Ambulatory Orders ALPRAZolam [Xanax] 0.5 mg PO BID 05/17/20 Dicyclomine [Bentyl] 20 mg PO TID PRN 05/17/20 Meclizine [Antivert] 25 mg PO TID PRN #20 tab 05/17/20 Cyclobenzaprine [Flexeril] 10 mg PO TID PRN 05/29/23 Gabapentin [Neurontin] 400 mg PO BID PRN 05/29/23 Aspirin/Acetaminophen/Caffeine [Excedrin Migraine Caplet] 1 each PO QAM PRN 07/15/23 Pantoprazole Sodium [Protonix] 40 mg PO QAM 07/15/23 traMADol HCL 50 mg PO BID PRN 07/15/23 Rimegepant Sulfate [Nurtec Odt] 75 mg PO DIRECTED PRN 07/18/23 Unk Loratadine 1 tab PO DAILY PRN 01/07/24 Albuterol Sulfate [Albuterol Sulfate Hfa] 6.7 gm IH QID PRN 01/23/24 Budesonide/Formoterol Fumarate [Symbicort 160-4.5 Mcg Inhaler] 1 puff INHALATION DAILY PRN 01/23/24 Controlled Substance Measures - Controlled Substance Measures Is patient prescribed a controlled substance at discharge?: No
== END ==
LOC: PNWHC3 07:43
PROVIDERS: ATTEND Specialist
DX: M19.011 Primary osteoarthritis, right shoulder (principal); M54.14 Radiculopathy, thoracic region; F17.210 Nicotine dependence, cigarettes, uncomplicated; M75.51 Bursitis of right shoulder; M67.88 Other specified disorders of synovium and tendon, other site; Z88.5 Allergy status to narcotic agent; Z88.8 Allergy status to other drugs, medicaments and biological substances
CPT/HCPCS: 99211

== ENCOUNTER → 2024-06-10 | Outpatient (CLI) | payer OTHER ==
[2024-06-10 11:26] VITALS: BP 123/90; PULSE 98; RESP 19; TEMP 96.8
--- NOTE | 2024-06-10 14:35 | P.PAINPG ---
PQRS Measure Charge Sheet Comment: HISTORY OF PRESENT ILLNESS: A 48 yr old female presents today w severe and chronic neck & R shoulder pain x 1 yr secondary to post laminectomy syndrome, Thoracic radiculopathy and R shoulder DJD for evaluation s/p BL TPIs T4-T10 #3. Pt states she experienced 50 % pain relief x 2 wks s/p procedure. Pt states pain level is provoked at 7-8 /10 in intensity, intermittent, localized in the lower cervicothoracic spine, predominantly axial, burning in character w shooting pain towards the R upper back. Pain is provoked by lifting & abduction of RUE. Pain is alleviated by PT x 8 wks which ended in Oct 2022 (cervicothoracic, RUE), massage therapy x 1 yr every 2 mo w last visit in Jan 2023 (cervicothoracic), chiropractic treatments weekly since Apr 2024 (cervical, lumbar), physician guided exercises every morning since Jan 2023 but have been provoking pain since Apr 2023, heat, medications, use of a TENS unit at home, topical, repositioning and rest. Interventional procedures include R Subacromial/ R Subdeltoid bursa x3, BL TPIs T4-T10 x3 (01/06, 02/05, 06/09) Medications include Tramadol, Flexeril, Ibu, Mobic, Lidoderm REVIEW OF ORGAN SYSTEMS: CONSTITUTIONAL: No fevers or chills. No recent weight loss. NEUROLOGICAL: + numbness and tingling along the distal extremities. No seizure disorders or headaches. MUSCULOSKELETAL: + pain PSYCHIATRIC: Denies current depression or suicidal thoughts. Physical Examinations : Constitutional : Cooperative , not in acute distress . Neurologic : Cranial nerve II to XII intact. No focal neurological deficits. Psychiatric : alert & oriented x 3. Matching mood & appropriate affect. Judgment & insight intact. Musculoskeletal : Cervical Spine R AC/ GH joint line TTP Motor strength in the deltoid and biceps: Normal right side. Normal Left side Motor strength biceps and the wrist extensors: Normal right side . Normal left side Motor strength in the triceps muscle: Normal right side. Normal left side Deep tendon reflexes: Normal at the biceps. Normal at Brachioradialis. Normal at triceps Vertebral body tenderness to deep palpation over Cervical facet loading test: positive bilaterally Taut bands w twitch response over R T3- T10 Spurling test: positive bilaterally Neck distraction test: positive bilaterally Kalen sign: positive bilaterally Lumbar spine Motor strength lower extremities ,thigh and legs 5/5 Right side , 5/5 Left side Deep tendon reflexes : Normal Knee Jerk. Normal Ankle Jerk Vertebral body tenderness over Chung Test positive Lumbar facet Loading Test: positive Right / positive Left Range of motion of the lumbar spine Flexion 30 degrees, extension 10 degrees Straight Leg Raise test: Left/ Right positive at degrees Crys test: positive right / positive left. Severe tenderness over the Sacroiliac joint on the Right / Left sides Gaenslen test: positive bilaterally Seated flexion test: positive bilaterally. Sacral spine : Severe tenderness over the Sacroiliac joint: right side / left side Range of motion: Flexion of the lumbar spine <60 degrees Range of motion: Extension of the lumbar spine <20 degrees Gaenslen's Test positive Crys test: positive right side / left side Thigh Thrust Test Sacral Thrust Test Imaging: MRI noncontrast of the cervical spine from 08/17/22 reviewed MRI noncontrast thoracic spine from 10/01/22 reviewed MRI noncontrast of the R shoulder from 06/12/23 reviewed Assessment/ Plan : R Shoulder DJD, R Shoulder Bursitis, R Shoulder Tendinosis, Thoracic radiculopathy Will manage residual pain and may RTC on an as needed basis. All questions answered. I have spent greater than 30 minutes on patient care today. Dr Salmon was available by phone for the evaluation of this patient. The time was used to review the medical records including relevant urine studies and Prescription history (MAPs), review of the available imaging, evaluation and examination of the patient, coordination of care with the medical staff and if applicable referring physicians, as well as creation of the medical record PQRS Narrative: Smoking Status Current every day smoker Hx Alcohol Use (MH) No Home Medications: Ambulatory Orders ALPRAZolam [Xanax] 0.5 mg PO BID 05/17/20 Dicyclomine [Bentyl] 20 mg PO TID PRN 05/17/20 Meclizine [Antivert] 25 mg PO TID PRN #20 tab 05/17/20 Cyclobenzaprine [Flexeril] 10 mg PO TID PRN 05/29/23 Gabapentin [Neurontin] 400 mg PO BID PRN 05/29/23 Aspirin/Acetaminophen/Caffeine [Excedrin Migraine Caplet] 1 each PO QAM PRN 07/15/23 Pantoprazole Sodium [Protonix] 40 mg PO QAM 07/15/23 traMADol HCL 50 mg PO BID PRN 07/15/23 Rimegepant Sulfate [Nurtec Odt] 75 mg PO DIRECTED PRN 07/18/23 Unk Loratadine 1 tab PO DAILY PRN 01/07/24 Albuterol Sulfate [Albuterol Sulfate Hfa] 6.7 gm IH QID PRN 01/23/24 Budesonide/Formoterol Fumarate [Symbicort 160-4.5 Mcg Inhaler] 1 puff INHALATION DAILY PRN 01/23/24 Controlled Substance Measures - Controlled Substance Measures Is patient prescribed a controlled substance at discharge?: No
== END ==
LOC: PNWHC3 11:05
PROVIDERS: ATTEND Specialist
DX: M54.14 Radiculopathy, thoracic region (principal); M19.011 Primary osteoarthritis, right shoulder; M67.813 Other specified disorders of tendon, right shoulder; M75.51 Bursitis of right shoulder; F17.210 Nicotine dependence, cigarettes, uncomplicated; Z88.8 Allergy status to other drugs, medicaments and biological substances
CPT/HCPCS: 99212

== ENCOUNTER → 2024-08-03 | Outpatient (CLI) | payer OTHER ==
--- NOTE | 2024-08-03 07:52 | MM ---
Reason for Exam: Clinical finding. Last mammogram was performed 1 year(s) and 7 month(s) ago. Indicated Problems: Lump or thickening of the right side for 2 Year(s). Patient History: Menarche at age 10. First Full-Term at age 17. Hysterectomy at age 23. Postmenopausal. Estrogen for 1 year from age 23 until age 24. Progesterone for 1 year from age 23 until age 24. Hormonal Contraceptives, starting at age 14 for 9 years. 10/03/2017, Benign Core Biopsy on the left side. Mother had breast cancer, age 47. Risk Values: Sadie 5 year model risk: 2.1%. NCI Lifetime model risk: 18.6%. Prior Study Comparison: 11/16/2020 Bilateral Screening Mammogram, [facility]. 11/20/2021 Bilateral MG screening mammo w CAD, [facility]. 01/07/2023 Bilateral MG screening mammo w CAD, [facility]. Tissue Density: The breasts are heterogeneously dense, which may obscure small masses. Findings: Analyzed By CAD. No mass or distortion. Scattered benign calcifications are present. Correlate clinically with regards to right axillary lump. Ultrasound recommended. Overall Assessment: Incomplete: need additional imaging evaluation, BI-RAD 0 Management: Diagnostic Breast Ultrasound of the right breast. . Results were given to the patient verbally at the time of exam. Patient should continue monthly self-breast exams. A clinical breast exam by your physician is recommended on an annual basis. This exam should not preclude additional follow-up of suspicious palpable abnormalities. Note on Sadie scores and lifetime risk: 1. A Sadie score greater than 3% is considered moderate risk. If this is the case, consider specialist referral to assess eligibility for a risk reducing agent. 2. If overall lifetime risk for the development of breast cancer is 20% or higher, the patient may qualify for future screening with alternating mammogram and breast MRI. [facility], , 08/03/2024 7:48 AM. Electronically signed and approved by: Chito Kelley M.D. Radiologis
--- NOTE | 2024-08-03 08:08 | USB ---
Reason for Exam: Clinical finding. Patient History: Menarche at age 10. First Full-Term at age 17. Hysterectomy at age 23. Postmenopausal. Estrogen for 1 year from age 23 until age 24. Progesterone for 1 year from age 23 until age 24. Hormonal Contraceptives, starting at age 14 for 9 years. 10/03/2017, Benign Core Biopsy on the left side. Mother had breast cancer, age 47. Risk Values: Sadie 5 year model risk: 2.1%. NCI Lifetime model risk: 18.6%. Technique: Method: Targeted. Prior Study Comparison: 11/16/2020 Bilateral Screening Mammogram, [facility]. 11/20/2021 Bilateral MG screening mammo w CAD, [facility]. 01/07/2023 Bilateral MG screening mammo w CAD, [facility]. Findings: The axilla of the right breast was scanned. No solid or cystic masses are identified. There is a normal-appearing right axillary lymph node measuring 1.3 x 0.7 cm without cortical thickening.. Overall Assessment: Benign, BI-RAD 2 Management: Screening Mammogram of both breasts in 1 year. A clinical breast exam by your physician is recommended on an annual basis and results should be correlated with mammographic findings. This exam should not preclude additional follow-up of suspicious palpable abnormalities. Results were given to the patient verbally at the time of exam. [facility], , 08/03/2024 8:04 AM. Electronically signed and approved by: Chito Kelley M.D. Radiologis
== END | disposition home or self-care (01) ==
LOC: RADMAMWWP 07:22
PROVIDERS: ATTEND Family Medicine
DX: R92.333 Mammographic heterogeneous density, bilateral breasts (principal); Z78.0 Asymptomatic menopausal state; Z80.3 Family history of malignant neoplasm of breast; Z92.0 Personal history of contraception
CPT/HCPCS: 77062; 77066

== ENCOUNTER → 2024-09-03 | Outpatient (CLI) | payer OTHER ==
[2024-09-03 07:42] VITALS: BP 118/88; PULSE 107; RESP 16; TEMP 97.3
--- NOTE | 2024-09-03 16:54 | P.PAINPG ---
PQRS Measure Charge Sheet Comment: HISTORY OF PRESENT ILLNESS: A 49 yr old female presents today w severe and chronic neck & R shoulder pain x 1 yr secondary to post laminectomy syndrome, Thoracic radiculopathy and R shoulder DJD for evaluation. Pt states pain level is provoked at 7 /10 in intensity, constant, localized in the R shoulder, dull in character without shooting pain . Pain is provoked by lifting & abduction of RUE. Pain is alleviated by PT x 8 wks which ended in Oct 2022 (cervicothoracic, RUE), chiropractic treatments semi monthly since Jun 2024 which she is currently in, massage therapy x 1 yr every 2 mo w last visit in Jan 2023 (cervicothoracic), chiropractic treatments weekly since Apr 2024 (cervical, lumbar), physician guided exercises every morning since Jan 2023 but have been provoking pain since Apr 2023, heat, medications, use of a TENS unit at home, topical, repositioning and rest. Interventional procedures include R Subacromial/ R Subdeltoid bursa x3, BL TPIs T4-T10 x3 (01/06, 02/05, 06/09) Medications include Tramadol, Flexeril, Ibu, Mobic, Lidoderm REVIEW OF ORGAN SYSTEMS: CONSTITUTIONAL: No fevers or chills. No recent weight loss. NEUROLOGICAL: + numbness and tingling along the distal extremities. No seizure disorders or headaches. MUSCULOSKELETAL: + pain PSYCHIATRIC: Denies current depression or suicidal thoughts. Physical Examinations : Constitutional : Cooperative , not in acute distress . Neurologic : Cranial nerve II to XII intact. No focal neurological deficits. Psychiatric : alert & oriented x 3. Matching mood & appropriate affect. Judgment & insight intact. Musculoskeletal : Cervical Spine R AC/ GH joint line TTP Motor strength in the deltoid and biceps: Normal right side. Normal Left side Motor strength biceps and the wrist extensors: Normal right side . Normal left side Motor strength in the triceps muscle: Normal right side. Normal left side Deep tendon reflexes: Normal at the biceps. Normal at Brachioradialis. Normal at triceps Vertebral body tenderness to deep palpation over Cervical facet loading test: positive bilaterally Taut bands w twitch response over R T3- T10 Spurling test: positive bilaterally Neck distraction test: positive bilaterally Kalen sign: positive bilaterally Lumbar spine Motor strength lower extremities ,thigh and legs 5/5 Right side , 5/5 Left side Deep tendon reflexes : Normal Knee Jerk. Normal Ankle Jerk Vertebral body tenderness over Chung Test positive Lumbar facet Loading Test: positive Right / positive Left Range of motion of the lumbar spine Flexion 30 degrees, extension 10 degrees Straight Leg Raise test: Left/ Right positive at degrees Crys test: positive right / positive left. Severe tenderness over the Sacroiliac joint on the Right / Left sides Gaenslen test: positive bilaterally Seated flexion test: positive b ilaterally. Sacral spine : Severe tenderness over the Sacroiliac joint: right side / left side Range of motion: Flexion of the lumbar spine <60 degrees Range of motion: Extension of the lumbar spine <20 degrees Gaenslen's Test positive Crys test: positive right side / left side Thigh Thrust Test Sacral Thrust Test Imaging: MRI noncontrast of the cervical spine from 08/17/22 reviewed MRI noncontrast thoracic spine from 10/01/22 reviewed MRI noncontrast of the R shoulder from 06/12/23 reviewed Assessment/ Plan : R Shoulder DJD, R Shoulder Bursitis, R Shoulder Tendinosis, Thoracic radiculopathy Recommendation of R shoulder bursa injection #1. Risks, benefits of procedure discussed and patient verbalized understanding. All questions answered. I have spent less than 30 minutes on patient care today. Dr Salmon was available by phone for the evaluation of this patient. The time was used to review the medical records including relevant urine studies and Prescription history (MAPs), review of the available imaging, evaluation and examination of the patient, coordination of care with the medical staff and if applicable referring physicians, as well as creation of the medical record - Pain Location Right Lower Neck Non-Pharmacological Interventions: Chiropractic Treatment, Heat, Inactivity, Massage, Physical Therapy, Position/Reposition, Relaxation Technique, Sitting Pharmacological Interventions: Epidural, PRN Medication, Scheduled Medication, Topical Medication PQRS Narrative: Smoking Status Current every day smoker Hx Alcohol Use (MH) No Home Medications: Ambulatory Orders ALPRAZolam [Xanax] 0.5 mg PO BID 05/17/20 Dicyclomine [Bentyl] 20 mg PO TID PRN 05/17/20 Meclizine [Antivert] 25 mg PO TID PRN #20 tab 05/17/20 Cyclobenzaprine [Flexeril] 10 mg PO TID PRN 05/29/23 Gabapentin [Neurontin] 400 mg PO BID PRN 05/29/23 Aspirin/Acetaminophen/Caffeine [Excedrin Migraine Caplet] 1 each PO QAM PRN 07/15/23 Pantoprazole Sodium [Protonix] 40 mg PO QAM 07/15/23 traMADol HCL 50 mg PO BID PRN 07/15/23 Rimegepant Sulfate [Nurtec Odt] 75 mg PO DIRECTED PRN 07/18/23 Unk Loratadine 1 tab PO DAILY PRN 01/07/24 Albuterol Sulfate [Albuterol Sulfate Hfa] 6.7 gm IH QID PRN 01/23/24 Budesonide/Formoterol Fumarate [Symbicort 160-4.5 Mcg Inhaler] 1 puff INHALATION DAILY PRN 01/23/24 Controlled Substance Measures - Controlled Substance Measures Is patient prescribed a controlled substance at discharge?: Yes When asked, does pt state using other controlled substances?: No If prescribed controlled substance>3 days was MAPS reviewed?: Prescribed <3 Days
== END ==
LOC: PNWHC3 07:23
PROVIDERS: ATTEND Specialist
DX: M19.011 Primary osteoarthritis, right shoulder (principal); M54.14 Radiculopathy, thoracic region; M67.813 Other specified disorders of tendon, right shoulder; M75.51 Bursitis of right shoulder; F17.200 Nicotine dependence, unspecified, uncomplicated; Z88.8 Allergy status to other drugs, medicaments and biological substances
CPT/HCPCS: 99211

== ENCOUNTER 2024-09-18 06:12 | Day surgery (SDC) | payer OTHER ==
[2024-09-18 06:49] VITALS: TEMP 97
[2024-09-18] MEDS ORDERED: TRIAMCINOLONE ACETONIDE 40 MG/ML 1 ML VIAL ONE (07:02)
[2024-09-18] MEDS ORDERED: ROPIVACAINE 5 MG/ML 30 ML VIAL ONE (07:02)
--- NOTE | 2024-09-18 07:17 | P.PCN ---
Date of Procedure: 09/18/24 Preoperative Diagnosis: Right Shoulder Osteoarthritis Postoperative Diagnosis: Right Shoulder Osteoarthritis Procedure(s) Performed: Right Shoulder Intra-articular Injection with Ultrasound Guidance Description of Procedure: Patient prepped in sterile fashion. Patient in the left lateral decubitus position. Ultrasound utilized for visualization of the glenohumeral joint and for visualizing medication spread. 25g needle was advanced into the joint capsule under ultrasound guidance using the posterior approach. after negative aspiration, 5 ml of solution was injected which included 1ml 40mg Kenalog with 4ml 0.5% Ropivacaine. No complications noted, patient performed well.
[2024-09-18 07:31] VITALS: BP 114/89; PULSE 103; RESP 19
== END 2024-09-18 07:34 | disposition home or self-care (01) ==
LOC: ORPAIN 06:12
PROVIDERS: ATTEND Anesthesiology
DX: M19.011 Primary osteoarthritis, right shoulder (principal); Z88.8 Allergy status to other drugs, medicaments and biological substances
CPT/HCPCS: 20611; J3301; J2795; 20610

== ENCOUNTER → 2024-10-07 | Outpatient (CLI) | payer OTHER ==
[2024-10-07 08:08] VITALS: BP 120/87; PULSE 98; RESP 19
--- NOTE | 2024-10-07 16:09 | P.PAINPG ---
PQRS Measure Charge Sheet Comment: HISTORY OF PRESENT ILLNESS: A 49 yr old female presents today w severe and chronic neck & R shoulder pain x 1 yr secondary to post laminectomy syndrome, Thoracic radiculopathy and R shoulder DJD for evaluation s/p R shoulder bursa injection #1. Pt states she experienced 50-60 % pain relief x 3 wks s/p procedure. Pt states pain level is provoked at 7 /10 in intensity, constant, localized in the lumbar spine, dull in character w occasional shooting pain to the BLEs. Pain is provoked by lifting. Pain is alleviated by PT x 8 wks which ended in Oct 2022 (cervicothoracic, RUE), chiropractic treatments monthly since Jun 2024 (lumbar) which she is currently in, massage therapy x 1 yr every 2 mo w last visit in Jan 2023 (cervicothoracic), chiropractic treatments weekly since Apr 2024 (cervical, lumbar), physician guided exercises every morning since Jan 2023 but have been provoking pain since Apr 2023, heat, medications, use of a TENS unit at home, topical, repositioning and rest. Interventional procedures include R Subacromial/ R Subdeltoid bursa x3, BL TPIs T4-T10 x3 (01/06, 02/05, 06/09), R shoulder bursa x (09/06) Medications include Tramadol, Flexeril, Ibu, Mobic, Lidoderm REVIEW OF ORGAN SYSTEMS: CONSTITUTIONAL: No fevers or chills. No recent weight loss. NEUROLOGICAL: + numbness and tingling along the distal extremities. No seizure disorders or headaches. MUSCULOSKELETAL: + pain PSYCHIATRIC: Denies current depression or suicidal thoughts. Physical Examinations : Constitutional : Cooperative , not in acute distress . Neurologic : Cranial nerve II to XII intact. No focal neurological deficits. Psychiatric : alert & oriented x 3. Matching mood & appropriate affect. Judgment & insight intact. Musculoskeletal : Cervical Spine R AC/ GH joint line TTP Motor strength in the deltoid and biceps: Normal right side. Normal Left side Motor strength biceps and the wrist extensors: Normal right side . Normal left side Motor strength in the triceps muscle: Normal right side. Normal left side Deep tendon reflexes: Normal at the biceps. Normal at Brachioradialis. Normal at triceps Vertebral body tenderness to deep palpation over Cervical facet loading test: positive bilaterally Taut bands w twitch response over R T3- T10 Spurling test: positive bilaterally Neck distraction test: positive bilaterally Kalen sign: positive bilaterally Lumbar spine Motor strength lower extremities ,thigh and legs 5/5 Right side , 5/5 Left side Deep tendon reflexes : Normal Knee Jerk. Normal Ankle Jerk Vertebral body tenderness over L4 Chung Test positive Lumbar facet Loading Test: positive Right / positive Left Range of motion of the lumbar spine Flexion 30 degrees, extension 10 degrees Straight Leg Raise test: Left/ Right positive at degrees Crys test: positive right / positive left. Severe tenderness over the Sacroiliac joint on the Right / Left sides Gaenslen test: positive bilaterally Seated flexion test: positive bilaterally. Sacral spine : Severe tenderness over the Sacroiliac joint: right side / left side Range of motion: Flexion of the lumbar spine <60 degrees Range of motion: Extension of the lumbar spine <20 degrees Gaenslen's Test positive Crys test: positive right side / left side Thigh Thrust Test Sacral Thrust Test Imaging: MRI non contrast of the cervical spine from 08/17/22 reviewed MRI noncontrast thoracic spine from 10/01/22 reviewed MRI noncontrast of the R shoulder from 06/12/23 reviewed Assessment/ Plan : R Shoulder DJD, R Shoulder Bursitis, R Shoulder Tendinosis, Thoracic radiculopathy Recommendation of x ray M54.16. All questions answered. I have spent less than 30 minutes on patient care today. Dr Salmon was available by phone for the evaluation of this patient. The time was used to review the medical records including relevant urine studies and Prescription history (MAPs), review of the available imaging, evaluation and examination of the patient, coordination of care with the medical staff and if applicable referring physicians, as well as creation of the medical record PQRS Narrative: Smoking Status Current every day smoker Hx Alcohol Use (MH) No Home Medications: Ambulatory Orders ALPRAZolam [Xanax] 0.5 mg PO BID 05/17/20 Dicyclomine [Bentyl] 20 mg PO TID PRN 05/17/20 Meclizine [Antivert] 25 mg PO TID PRN #20 tab 05/17/20 Cyclobenzaprine [Flexeril] 10 mg PO TID PRN 05/29/23 Gabapentin [Neurontin] 400 mg PO BID PRN 05/29/23 Aspirin/Acetaminophen/Caffeine [Excedrin Migraine Caplet] 1 each PO QAM PRN 07/15/23 Pantoprazole Sodium [Protonix] 40 mg PO QAM 07/15/23 traMADol HCL 50 mg PO BID PRN 07/15/23 Rimegepant Sulfate [Nurtec Odt] 75 mg PO DIRECTED PRN 07/18/23 Unk Loratadine 1 tab PO DAILY PRN 01/07/24 Albuterol Sulfate [Albuterol Sulfate Hfa] 6.7 gm IH QID PRN 01/23/24 Budesonide/Formoterol Fumarate [Symbicort 160-4.5 Mcg Inhaler] 1 puff INHALATION DAILY PRN 01/23/24 diazePAM [Valium] 10 mg PO DAILY 1 Days #1 tab 09/03/24 Controlled Substance Measures - Controlled Substance Measures Is patient prescribed a controlled substance at discharge?: No
== END ==
LOC: PNWHC3 07:31
PROVIDERS: ATTEND Specialist
DX: M54.14 Radiculopathy, thoracic region (principal); M19.011 Primary osteoarthritis, right shoulder; M75.51 Bursitis of right shoulder; F17.200 Nicotine dependence, unspecified, uncomplicated; Z88.8 Allergy status to other drugs, medicaments and biological substances
CPT/HCPCS: 99212

== ENCOUNTER → 2024-10-16 | Outpatient (CLI) | payer OTHER ==
--- NOTE | 2024-10-17 14:06 | MR ---
EXAMINATION TYPE: MR lumbar spine wo con DATE OF EXAM: 10/16/2024 8:02 AM COMPARISON: None. CLINICAL INDICATION: Female, 49 years old with history of M54.16 RADICULOPATHY, LUMBAR REGION; PHH, l ow back pain, mid back pain right side TECHNIQUE: Multi planar, multi sequence imaging was performed utilizing: T1-weighted, T2-weighted, a nd turbo inversion recovery imaging of the lumbar spine. IV Contrast: mL (None, if empty) FINDINGS: Alignment: The lumbar vertebral bodies have preserved heights and alignment. Cord: The conus medullaris and the distal spinal cord appear unremarkable with regards to their signa l intensity and morphology. Bones/Discs: Mild degeneration changes throughout the spine with osteophyte formation and facet joint arthropathy. Intervertebral disc signal is maintained. No abnormal inversion recovery signal to sugg est bony edema. Mild reactive edema at the anterior superior endplate of L3 and L4. T12-L1: No evidence of significant spinal canal stenosis or neural foraminal stenosis. L1-L2: No evidence of significant spinal canal stenosis or neural foraminal stenosis. L2-L3: No evidence of significant spinal canal stenosis or neural foraminal stenosis. L3-L4: No evidence of significant spinal canal stenosis or neural foraminal stenosis. L4-L5: No evidence of significant spinal canal stenosis or neural foraminal stenosis. L5-S1: The disc has a rounded posterior morphology without significant spinal canal stenosis. Facet j oint arthropathy with mild bilateral neural foraminal stenosis. No significant spinal canal or neural foraminal stenosis in the remainder of the visualized levels. Other findings: Left peripelvic renal cyst measuring up to 22 mm. No follow-up recommended. IMPRESSION: 1. No definitive evidence of disc herniation or significant spinal canal stenosis. 2. Mild disc degeneration with associated osteoarthritic changes. [facility], , 10/17/2024 2:04 PM
== END | disposition home or self-care (01) ==
LOC: RADMRIMAIN 07:17
PROVIDERS: ATTEND Specialist
DX: M51.16 Intervertebral disc disorders with radiculopathy, lumbar region (principal); M47.26 Other spondylosis with radiculopathy, lumbar region
CPT/HCPCS: 72148